=== PATIENT | male | born 1970 | race Hispanic/Latino ===

== ENCOUNTER 2017-11-05 17:11 | Inpatient (IN) | payer MEDICAID, OTHER ==
[~2017-11-05] VITALS: Ht 172.7 cm; Wt 77.1 kg
[~2017-11-05 17:11] MED LIST: INSU100I3 SQ; INSU3INS3 SQ; LACT PO; PANT40TA PO; RIFA550T PO
[2017-11-05 18:14] LABS: BASOPHILS % (AUTO) 0.4 % (0.0-5.0); EOSINOPHILS % (AUTO) 1.7 % (0.0-8.0); HEMATOCRIT 25.3 % (42-54); LYMPHOCYTES % (AUTO) 35.4 % (21.0-51.0); MEAN CORPUSCULAR HGB CONC 36.4 g/dL (32.0-36.0); MEAN CORPUSCULAR VOLUME 87.9 fL (79-99); MONOCYTES % (AUTO) 13.7 % (3.0-13.0); NEUTROPHILS % (AUTO) 48.8 % (40.0-77.0); NUCLEATED RED BLOOD CELLS 0.1 % (0.0-0.19); PLATELET COUNT (AUTO) 42 K/uL (130-400); RED BLOOD CELL COUNT(AUTO) 2.88 MIL/uL (4.50-6.20); RED CELL DISTRIBUTION WIDTH 21.4 % (11.0-15.5)
[2017-11-05 18:16] LABS: CARBON DIOXIDE 23 mmol/L (21-32); CHLORIDE 109 mmol/L (101-111); GLOMERULAR FILTR. RATE CALC 86 mL/min (>60); GLUCOSE,RANDOM 238 mg/dL (70-105); SODIUM SERUM 140 mmol/L (136-145); UREA NITROGEN, BLOOD 8 mg/dL (7-18)
[2017-11-05 18:20] LABS: ALANINE AMINOTRANSFERASE 48 U/L (12-78); ALBUMIN 2.2 g/dL (3.5-5.0); ALCOHOL, BLOOD < 3 mg/dL (0-10); ASPARTATE AMINOTRANSFERASE 62 U/L (10-37); INR 1.35 (0.85-1.15); PARTIAL THROMBOPLASTIN TIME 38.7 SEC (26.3-35.5); PROTHROMBIN TIME 14.1 SEC (9.6-11.6); TOTAL PROTEIN, SERUM 6.1 g/dL (6.0-8.3)
[2017-11-05 18:23] LABS: AMMONIA 80 umol/L (11-32)
[2017-11-05 18:28] LABS: PLATELET MORPHOLOGY COMMENT MARKED DECREASED
[2017-11-05] MEDS ORDERED: LACTULOSE 20 GM/30 ML UDCUP ONE (18:57)
[2017-11-05 19:08] LABS: APPEARANCE,URINE Clear (CLEAR); BILIRUBIN,URINE Negative (NEGATIVE); COLOR,URINE Yellow (YELLOW); GLUCOSE, URINE (UA) TRACE mg/dL (NEGATIVE); KETONES,URINE Negative (NEGATIVE); LEUKOCYTE ESTERASE ,URINE Negative (NEGATIVE); NITRATE,URINE Negative (NEGATIVE); OCCULT BLOOD,URINE Negative (NEGATIVE); PH,URINE 5.5 (5.0-8.0); PROTEIN,URINE Negative (NEGATIVE)
[2017-11-05 19:16] LABS: AMPHET/METH SCREEN,URINE NEGATIVE (NEGATIVE); BARBITURATE SCREEN, URINE NEGATIVE (NEGATIVE); BENZODIAZEPINES SCREEN,URINE NEGATIVE (NEGATIVE); CANNABINOID SCREEN,URINE POSITIVE (NEGATIVE); COCAINE SCREEN,URINE POSITIVE (NEGATIVE); OPIATE SCREEN,URINE NEGATIVE (NEGATIVE); PHENCYCLIDINE SCREEN,URINE NEGATIVE (NEGATIVE)
[2017-11-05] MEDS: LACTULOSE 20 GM/30 ML UDCUP PO SCH (21:00)
[2017-11-05] MEDS ORDERED: POTASSIUM CHLORIDE 10% ELIXIR 20 MEQ/15 ML UDCUP PO PRN (21:00)
[2017-11-05] MEDS ORDERED: POTASSIUM CHLORIDE 20MEQ/100ML 100 ML IV PRN (21:00)
[2017-11-05] MEDS ORDERED: LIDOCAINE HCL-MPF 1% 2ML VIAL IVP PRN (21:00)
[2017-11-05 21:25] VITALS: BP 129/70
[2017-11-05] MEDS ORDERED: OXYCODONE/ACETAMIN 5/325MG TAB PO ONE (22:30)
[2017-11-05] MEDS: FERROUS SULFATE 325 MG TABLET.DR PO SCH (23:03)
[2017-11-05] MEDS: ACYCLOVIR 200 MG CAPSULE PO SCH (23:03)
[2017-11-05 23:07] VITALS: BP 129/68
[2017-11-05] MEDS: INSULIN DETEMIR 10ML 100 UNIT/ML 10ML SQ SCH (23:07)
[2017-11-06 03:35] VITALS: BP 129/58
[2017-11-06] MEDS: LACTULOSE 20 GM/30 ML UDCUP PO SCH ×3 (04:42→20:25)
[2017-11-06] MEDS ORDERED: DEXTROSE 50%-WATER 50 ML DISP.SYRIN IV PRN (05:00)
[2017-11-06] MEDS ORDERED: GLUCAGON 1MG KIT 1 MG ML IM PRN (05:00)
[2017-11-06 06:06] LABS: BASOPHILS % (AUTO) 0.6 % (0.0-5.0); EOSINOPHILS % (AUTO) 2.2 % (0.0-8.0); HEMATOCRIT 23.9 % (42-54); LYMPHOCYTES % (AUTO) 37.2 % (21.0-51.0); MEAN CORPUSCULAR HEMOGLOBIN 31.4 pg (27.0-33.0); MEAN CORPUSCULAR HGB CONC 36.1 g/dL (32.0-36.0); MONOCYTES % (AUTO) 12.8 % (3.0-13.0); NEUTROPHILS % (AUTO) 47.2 % (40.0-77.0); NUCLEATED RED BLOOD CELLS 0.1 % (0.0-0.19); PLATELET COUNT (AUTO) 45 K/uL (130-400); RED BLOOD CELL COUNT(AUTO) 2.74 MIL/uL (4.50-6.20); RED CELL DISTRIBUTION WIDTH 21.5 % (11.0-15.5); WHITE BLOOD COUNT (AUTO) 2.4 K/uL (4.8-10.8)
[2017-11-06 06:20] LABS: CREATININE 0.9 mg/dL (0.5-1.5); POTASSIUM 3.6 mmol/L (3.5-5.1)
[2017-11-06] MEDS: ACYCLOVIR 200 MG CAPSULE PO SCH (06:50)
[2017-11-06] MEDS: INSULIN HUMULIN R 100 UNIT/ML 3ML SQ SCH ×4 (06:52→21:35)
[2017-11-06 07:00] VITALS: BP 95/46
[2017-11-06 08:29] LABS: BAND NEUTROPHILS % (MANUAL) 1 % (0-2); EOSINOPHILS % (MANUAL) 6 % (1-6); LYMPHOCYTES % (MANUAL) 27 % (22-44); MAN.DIFF COMMENT-IMPRESSION MANUAL DIFFERENTIAL; METAMYELOCYTES % 5 % (0-0); MONOCYTES % (MANUAL) 3 % (2-9); PROMYELOCYTES % 2 (0-0); SEGMENTED NEUTROPHILS % 56 % (40-70)
[2017-11-06 08:31] LABS: PLATELET MORPHOLOGY COMMENT MARKED DECREASED
[2017-11-06] MEDS: VALACYCLOVIR HCL 500 MG TABLET PO SCH ×2 (09:45→20:25)
[2017-11-06] MEDS: FERROUS SULFATE 325 MG TABLET.DR PO SCH ×3 (09:45→20:25)
[2017-11-06] MEDS: RIFAXIMIN 550 MG TABLET PO SCH ×2 (09:45→20:25)
[2017-11-06 11:00] VITALS: BP_SYST 105; BP_SYST 157; BP_DIAS 58; BP_DIAS 82
[2017-11-06 16:00] VITALS: BP 126/62
[2017-11-06] MEDS: ALPRAZOLAM 0.5 MG TABLET PO PRN (18:45)
[2017-11-06 19:55] VITALS: BP 150/69
[2017-11-06] MEDS: INSULIN DETEMIR 10ML 100 UNIT/ML 10ML SQ SCH (21:30)
[2017-11-06 23:30] VITALS: BP 108/54
[2017-11-07] MEDS ORDERED: ACETAMINOPHEN 325 MG TAB ONE (00:29)
[2017-11-07] MEDS ORDERED: ACETAMINOPHEN 325 MG TAB PO ONE (00:45)
[2017-11-07] MEDS: ALPRAZOLAM 0.5 MG TABLET PO PRN ×3 (02:03→20:11)
[2017-11-07 04:25] VITALS: BP 112/75
[2017-11-07 04:50] LABS: HEMATOCRIT 26.5 % (42-54); MEAN CORPUSCULAR HEMOGLOBIN 33.5 pg (27.0-33.0); MEAN CORPUSCULAR HGB CONC 37.5 g/dL (32.0-36.0); MEAN CORPUSCULAR VOLUME 89.2 fL (79-99); NUCLEATED RED BLOOD CELLS 0.1 % (0.0-0.19); PLATELET COUNT (AUTO) 48 K/uL (130-400); RED BLOOD CELL COUNT(AUTO) 2.97 MIL/uL (4.50-6.20); RED CELL DISTRIBUTION WIDTH 21.7 % (11.0-15.5); WHITE BLOOD COUNT (AUTO) 2.2 K/uL (4.8-10.8)
[2017-11-07] MEDS: LACTULOSE 20 GM/30 ML UDCUP PO SCH ×3 (04:52→19:21)
[2017-11-07 05:00] LABS: CREATININE 0.9 mg/dL (0.5-1.5); MAGNESIUM 1.5 mg/dL (1.80-2.40); POTASSIUM 4.1 mmol/L (3.5-5.1)
[2017-11-07 05:09] LABS: % IRON SATURATION 33.9 % (30-44)
[2017-11-07] MEDS: INSULIN HUMULIN R 100 UNIT/ML 3ML SQ SCH ×4 (06:42→22:07)
[2017-11-07 08:03] VITALS: BP 118/53
[2017-11-07] MEDS ORDERED: BISACODYL 10 MG SUPP.RECT RC PRN (08:15)
[2017-11-07] MEDS: MAGNESIUM 2GM PREMIX 50ML 50 ML IV SCH (10:01)
[2017-11-07] MEDS: RIFAXIMIN 550 MG TABLET PO SCH ×2 (10:01→20:12)
[2017-11-07] MEDS: FERROUS SULFATE 325 MG TABLET.DR PO SCH ×3 (10:01→20:12)
[2017-11-07 12:00] VITALS: BP 101/49
[2017-11-07 16:00] VITALS: BP 117/67
[2017-11-07 19:05] VITALS: BP 131/69
[2017-11-08 00:25] VITALS: BP 105/58
[2017-11-08] MEDS: LACTULOSE 20 GM/30 ML UDCUP PO SCH ×6 (01:06→19:00)
[2017-11-08 05:43] LABS: HEMATOCRIT 27.8 % (42-54); MEAN CORPUSCULAR HEMOGLOBIN 31.4 pg (27.0-33.0); MEAN CORPUSCULAR HGB CONC 34.9 g/dL (32.0-36.0); MEAN CORPUSCULAR VOLUME 89.9 fL (79-99); NUCLEATED RED BLOOD CELLS 0.1 % (0.0-0.19); PLATELET COUNT (AUTO) 53 K/uL (130-400); RED BLOOD CELL COUNT(AUTO) 3.09 MIL/uL (4.50-6.20); RED CELL DISTRIBUTION WIDTH 23.3 % (11.0-15.5); WHITE BLOOD COUNT (AUTO) 2.9 K/uL (4.8-10.8)
[2017-11-08 05:52] LABS: CREATININE 0.9 mg/dL (0.5-1.5); MAGNESIUM 1.6 mg/dL (1.80-2.40); POTASSIUM 3.8 mmol/L (3.5-5.1)
[2017-11-08 07:29] LABS: BAND NEUTROPHILS % (MANUAL) 4 % (0-2); BASOPHILS % (MANUAL) 4 % (0-2); LYMPHOCYTES % (MANUAL) 40 % (22-44); MONOCYTES % (MANUAL) 8 % (2-9); SEGMENTED NEUTROPHILS % 44 % (40-70)
[2017-11-08 07:31] LABS: PLATELET MORPHOLOGY COMMENT MARKED DECREASED
[2017-11-08 07:32] LABS: MAN.DIFF COMMENT-IMPRESSION MANUAL DIFFERENTIAL
[2017-11-08 08:00] VITALS: BP 121/56
[2017-11-08] MEDS: RIFAXIMIN 550 MG TABLET PO SCH ×2 (09:27→20:13)
[2017-11-08] MEDS: FERROUS SULFATE 325 MG TABLET.DR PO SCH ×3 (09:27→20:13)
[2017-11-08] MEDS: INSULIN HUMULIN R 100 UNIT/ML 3ML SQ SCH ×4 (09:36→21:00)
[2017-11-08] MEDS: ALPRAZOLAM 0.5 MG TABLET PO PRN ×2 (11:58→20:13)
[2017-11-08 12:10] VITALS: BP 108/49
[2017-11-08] MEDS: MORPHINE SULFATE 2 MG/ML 1ML SYG IVP PRN (15:08)
[2017-11-08 16:00] VITALS: BP 127/77
[2017-11-08 20:00] VITALS: BP 106/58
[2017-11-09] VITALS: BP 112/56
[2017-11-09] MEDS: LACTULOSE 20 GM/30 ML UDCUP PO SCH ×4 (01:00→19:00)
[2017-11-09] MEDS: MORPHINE SULFATE 2 MG/ML 1ML SYG IVP PRN ×2 (02:45→14:39)
[2017-11-09 04:00] VITALS: BP 110/45
[2017-11-09 05:31] LABS: HEMATOCRIT 28.1 % (42-54); MEAN CORPUSCULAR HEMOGLOBIN 33.3 pg (27.0-33.0); MEAN CORPUSCULAR HGB CONC 37.3 g/dL (32.0-36.0); MEAN CORPUSCULAR VOLUME 89.1 fL (79-99); PLATELET COUNT (AUTO) 53 K/uL (130-400); RED BLOOD CELL COUNT(AUTO) 3.16 MIL/uL (4.50-6.20); RED CELL DISTRIBUTION WIDTH 23.1 % (11.0-15.5)
[2017-11-09 05:44] LABS: CREATININE 0.9 mg/dL (0.5-1.5); MAGNESIUM 1.7 mg/dL (1.80-2.40); POTASSIUM 3.5 mmol/L (3.5-5.1)
[2017-11-09] MEDS: INSULIN HUMULIN R 100 UNIT/ML 3ML SQ SCH ×4 (06:48→22:11)
[2017-11-09 07:05] VITALS: BP 118/49
[2017-11-09 07:41] LABS: EOSINOPHILS % (MANUAL) 2 % (1-6); LYMPHOCYTES % (MANUAL) 26 % (22-44); MONOCYTES % (MANUAL) 14 % (2-9); SEGMENTED NEUTROPHILS % 58 % (40-70)
[2017-11-09 07:42] LABS: MAN.DIFF COMMENT-IMPRESSION MANUAL DIFFERENTIAL; PLATELET MORPHOLOGY COMMENT DECREASED
[2017-11-09] MEDS: FERROUS SULFATE 325 MG TABLET.DR PO SCH ×3 (09:47→22:06)
[2017-11-09] MEDS: RIFAXIMIN 550 MG TABLET PO SCH ×2 (09:48→22:06)
[2017-11-09 11:00] VITALS: BP 109/53
[2017-11-09] MEDS: POTASSIUM CHLORIDE 20 MEQ ERTAB PO PRN ×2 (12:12→14:39)
[2017-11-09] MEDS: ALPRAZOLAM 0.5 MG TABLET PO PRN ×2 (12:17→22:06)
[2017-11-09 15:30] VITALS: BP 108/53
[2017-11-09] MEDS: MAGNESIUM 2GM PREMIX 50ML 50 ML IV SCH (17:03)
[2017-11-09 20:00] VITALS: BP 134/64
[2017-11-10] VITALS: BP 110/65
[2017-11-10] MEDS: LACTULOSE 20 GM/30 ML UDCUP PO SCH ×3 (01:00→12:50)
[2017-11-10] MEDS ORDERED: MORPHINE SULFATE 4 MG/1ML SYG ONE (01:33)
[2017-11-10 04:00] VITALS: BP 110/64
[2017-11-10] MEDS: INSULIN HUMULIN R 100 UNIT/ML 3ML SQ SCH ×2 (07:33→12:56)
[2017-11-10 07:59] VITALS: BP 107/53
[2017-11-10] MEDS: FERROUS SULFATE 325 MG TABLET.DR PO SCH ×2 (10:25→12:50)
[2017-11-10] MEDS: RIFAXIMIN 550 MG TABLET PO SCH (10:25)
[2017-11-10] MEDS: ALPRAZOLAM 0.5 MG TABLET PO PRN (10:27)
[2017-11-10 12:08] VITALS: BP 112/49
== END 2017-11-10 15:29 | disposition home or self-care (01) | DRG 442 ==
LOC: EDH 17:11 → EDHIP 17:13 → UNDOADMIN 19:50 → EDHIP 19:50 → 4CH 21:24
PROVIDERS: ADMIT Family Medicine; ATTEND Family Medicine
DX: K72.00 Acute and subacute hepatic failure without coma (principal); E44.0 Moderate protein-calorie malnutrition; D61.818 Other pancytopenia; R18.8 Other ascites; E83.42 Hypomagnesemia; B00.2 Herpesviral gingivostomatitis and pharyngotonsillitis; K74.60 Unspecified cirrhosis of liver; B19.20 Unspecified viral hepatitis C without hepatic coma; E03.9 Hypothyroidism, unspecified; E11.9 Type 2 diabetes mellitus without complications; F12.90 Cannabis use, unspecified, uncomplicated; F32.9 Major depressive disorder, single episode, unspecified; F41.1 Generalized anxiety disorder; F43.10 Post-traumatic stress disorder, unspecified; M79.7 Fibromyalgia; R53.82 Chronic fatigue, unspecified; Z60.2 Problems related to living alone; Z68.25 Body mass index [BMI] 25.0-25.9, adult; Z91.81 History of falling; Z88.8 Allergy status to other drugs, medicaments and biological substances
CPT/HCPCS: 36415; 70450; 71045; 71110; 73562; 80048; 80053; 80305; 81003; 82140; 82270; 82948; 83540; 83550; 83735; 85007; 85025; 85027; 85610; 85730; 87252; 87253; G0480; J1815; J2270; J3475

== ENCOUNTER 2017-11-14 16:49 | Inpatient (IN) | payer MEDICAID, OTHER ==
[~2017-11-14] VITALS: Ht 172.7 cm; Wt 77.1 kg
[2017-11-14 17:40] LABS: BASOPHILS % (AUTO) 0.6 % (0.0-5.0); EOSINOPHILS % (AUTO) 2.1 % (0.0-8.0); HEMATOCRIT 27.1 % (42-54); LYMPHOCYTES % (AUTO) 32.7 % (21.0-51.0); MEAN CORPUSCULAR HEMOGLOBIN 32.3 pg (27.0-33.0); MEAN CORPUSCULAR HGB CONC 35.2 g/dL (32.0-36.0); MEAN CORPUSCULAR VOLUME 91.8 fL (79-99); MONOCYTES % (AUTO) 12.7 % (3.0-13.0); NEUTROPHILS % (AUTO) 51.9 % (40.0-77.0); NUCLEATED RED BLOOD CELLS 0.1 % (0.0-0.19); PLATELET COUNT (AUTO) 38 K/uL (130-400); RED BLOOD CELL COUNT(AUTO) 2.95 MIL/uL (4.50-6.20); RED CELL DISTRIBUTION WIDTH 22.9 % (11.0-15.5)
[2017-11-14] MEDS ORDERED: ALBUMIN (HUMAN) 25% 50 ML IV ONE (17:40)
[2017-11-14] MEDS ORDERED: MEROPENEM 1 GM VIAL ONE (17:40)
[2017-11-14 17:55] LABS: INR 1.34 (0.85-1.15)
[2017-11-14 17:59] LABS: B-TYPE NATRIURETIC PEPTIDE 66 pg/mL (0-100)
[2017-11-14 18:31] LABS: ALANINE AMINOTRANSFERASE 46 U/L (12-78); ALBUMIN 2.3 g/dL (3.5-5.0); ASPARTATE AMINOTRANSFERASE 53 U/L (10-37); BILIRUBIN,TOTAL 2.3 mg/dL (0.2-1.0); CARBON DIOXIDE 22 mmol/L (21-32); CHLORIDE 106 mmol/L (101-111); CREATINE KINASE MB < 0.5 ng/mL (0.5-3.6); CREATINE KINASE, TOTAL 50 U/L (21-232); CREATININE 1.1 mg/dL (0.5-1.5); GLOMERULAR FILTR. RATE CALC 77 mL/min (>60); LIPASE 293 U/L (114-286); MYOGLOBIN 16 ng/mL (10-92); POTASSIUM 3.8 mmol/L (3.5-5.1); SODIUM SERUM 137 mmol/L (136-145); TOTAL PROTEIN, SERUM 6.2 g/dL (6.0-8.3); UREA NITROGEN, BLOOD 7 mg/dL (7-18)
[2017-11-14 18:37] LABS: GLUCOSE,RANDOM 568 mg/dL (70-105)
[2017-11-14 18:47] LABS: AMPHET/METH SCREEN,URINE NEGATIVE (NEGATIVE); BARBITURATE SCREEN, URINE NEGATIVE (NEGATIVE); BENZODIAZEPINES SCREEN,URINE NEGATIVE (NEGATIVE); CANNABINOID SCREEN,URINE NEGATIVE (NEGATIVE); COCAINE SCREEN,URINE POSITIVE (NEGATIVE); OPIATE SCREEN,URINE NEGATIVE (NEGATIVE); PHENCYCLIDINE SCREEN,URINE NEGATIVE (NEGATIVE)
[2017-11-14 21:35] VITALS: BP 144/91
[2017-11-14] MEDS ORDERED: FAMOTIDINE 20MG TAB 20 MG TAB ONE (22:12)
[2017-11-14] MEDS ORDERED: INSULIN HUMULIN R 100 UNIT/ML 3ML ONE (22:13)
[2017-11-14] MEDS ORDERED: ALPRAZOLAM 0.5 MG TABLET ONE (22:14)
[2017-11-14] MEDS ORDERED: ACETAMINOPHEN 325 MG TAB ONE (22:14)
[2017-11-14] MEDS ORDERED: LACT10SO9 PO (22:33)
[2017-11-14] MEDS ORDERED: PERCT10 PO (22:33)
[2017-11-14] MEDS ORDERED: ZOLP5TAB2 PO (22:33)
[2017-11-14] MEDS ORDERED: MORPHINE SULFATE 2 MG/ML 1ML SYG IVP PRN (22:45)
[2017-11-14] MEDS ORDERED: PROMETHAZINE HCL 25 MG/ML 1ML AMPULE IM PRN (22:45)
[2017-11-14] MEDS ORDERED: MORPHINE SULFATE 4 MG/1ML SYG ONE (22:55)
[2017-11-14 23:00] VITALS: BP 129/60
[2017-11-14] MEDS ORDERED: DEXTROSE 50%-WATER 50 ML DISP.SYRIN IV PRN (23:15)
[2017-11-14] MEDS: SODIUM CHLORIDE 0.9% 1000ML 1,000 ML IV SCH ×2 (23:15→23:58)
[2017-11-14] MEDS ORDERED: ACETAMINOPHEN 325 MG TAB PO PRN (23:15)
[2017-11-14] MEDS ORDERED: POTASSIUM CHLORIDE 20MEQ/100ML 100 ML IV PRN (23:15)
[2017-11-14] MEDS ORDERED: LIDOCAINE HCL-MPF 1% 2ML VIAL IJ PRN (23:15)
[2017-11-14] MEDS ORDERED: GLUCAGON 1MG KIT 1 MG ML IM PRN (23:15)
[2017-11-14] MEDS ORDERED: POTASSIUM CHLORIDE 20 MEQ ERTAB PO PRN (23:15)
[2017-11-14] MEDS ORDERED: POTASSIUM CHLORIDE 10% ELIXIR 20 MEQ/15 ML UDCUP PO PRN (23:15)
[2017-11-14] MEDS: ZOLPIDEM TARTRATE 5 MG TAB PO PRN (23:58)
[2017-11-15] MEDS: SODIUM CHLORIDE 0.9% 1000ML 1,000 ML IV SCH ×4 (00:04→19:15)
[2017-11-15] MEDS ORDERED: PHARMACY COMMUNICATION MISC SCH (01:30)
[2017-11-15] MEDS: MEROPENEM 1 GM VIAL IVP SCH ×3 (02:10→17:04)
[2017-11-15] MEDS ORDERED: MORPHINE SULFATE 4 MG/1ML SYG ONE (02:54)
[2017-11-15 03:00] VITALS: BP 131/63
[2017-11-15 04:56] LABS: HEMATOCRIT 22.3 % (42-54); MEAN CORPUSCULAR HEMOGLOBIN 33.3 pg (27.0-33.0); MEAN CORPUSCULAR HGB CONC 37.1 g/dL (32.0-36.0); MEAN CORPUSCULAR VOLUME 89.7 fL (79-99); PLATELET COUNT (AUTO) 29 K/uL (130-400); RED BLOOD CELL COUNT(AUTO) 2.49 MIL/uL (4.50-6.20); RED CELL DISTRIBUTION WIDTH 23.2 % (11.0-15.5); WHITE BLOOD COUNT (AUTO) 1.4 K/uL (4.8-10.8)
[2017-11-15 05:10] LABS: CREATININE 0.9 mg/dL (0.5-1.5); POTASSIUM 3.5 mmol/L (3.5-5.1)
[2017-11-15 05:28] LABS: EOSINOPHILS % (MANUAL) 4 % (1-6); LYMPHOCYTES % (MANUAL) 48 % (22-44); MAN.DIFF COMMENT-IMPRESSION MANUAL DIFFERENTIAL; MONOCYTES % (MANUAL) 8 % (2-9); SEGMENTED NEUTROPHILS % 40 % (40-70)
[2017-11-15 05:29] LABS: PLATELET MORPHOLOGY COMMENT MARKED DEC
[2017-11-15] MEDS: INSULIN R PO SS1 SQ SCH ×4 (06:23→20:57)
[2017-11-15 07:40] VITALS: BP 120/64
[2017-11-15] MEDS: MORPHINE SULFATE 4 MG/1ML SYG IVP PRN ×4 (08:56→21:54)
[2017-11-15] MEDS ORDERED: LACTULOSE 20 GM/30 ML UDCUP PO SCH ×2 (09:00→22:00)
[2017-11-15] MEDS ORDERED: FAMOTIDINE 20MG TAB 20 MG TAB PO SCH (09:00)
[2017-11-15 11:38] VITALS: BP 127/64
[2017-11-15] MEDS: ALPRAZOLAM 0.5 MG TABLET PO PRN (15:20)
[2017-11-15 16:23] VITALS: BP 128/64
[2017-11-15 20:00] VITALS: BP 129/70
[2017-11-15] MEDS: RIFAXIMIN 550 MG TABLET PO SCH (20:13)
[2017-11-15] MEDS: ZOLPIDEM TARTRATE 5 MG TAB PO PRN (20:13)
[2017-11-16] VITALS: BP 142/83
[2017-11-16] MEDS: MEROPENEM 1 GM VIAL IVP SCH ×3 (01:48→17:59)
[2017-11-16 03:50] LABS: CREATININE 0.8 mg/dL (0.5-1.5); MAGNESIUM 1.4 mg/dL (1.80-2.40); POTASSIUM 3.9 mmol/L (3.5-5.1)
[2017-11-16 04:00] VITALS: BP 135/79
[2017-11-16] MEDS: SODIUM CHLORIDE 0.9% 1000ML 1,000 ML IV SCH ×2 (04:39→15:15)
[2017-11-16] MEDS: MORPHINE SULFATE 4 MG/1ML SYG IVP PRN ×3 (05:08→22:01)
[2017-11-16] MEDS: INSULIN R PO SS1 SQ SCH ×4 (06:17→21:32)
[2017-11-16 08:00] VITALS: BP 130/60
[2017-11-16] MEDS ORDERED: BISACODYL 10 MG SUPP.RECT RC PRN (09:45)
[2017-11-16] MEDS ORDERED: PHARMACY COMMUNICATION MISC SCH (09:45)
[2017-11-16] MEDS: RIFAXIMIN 550 MG TABLET PO SCH ×2 (10:29→21:27)
[2017-11-16] MEDS: LACTULOSE 20 GM/30 ML UDCUP PO SCH ×2 (10:48→18:00)
[2017-11-16 11:45] VITALS: BP 126/63
[2017-11-16] MEDS: MAGNESIUM 2GM PREMIX 50ML 50 ML IV SCH (12:28)
[2017-11-16 16:00] VITALS: BP 138/85
[2017-11-16] MEDS: ALPRAZOLAM 0.5 MG TABLET PO PRN (16:14)
[2017-11-16 19:00] VITALS: BP 133/76
[2017-11-16] MEDS: ZOLPIDEM TARTRATE 5 MG TAB PO PRN (21:27)
[2017-11-16] MEDS: INSULIN GLARGINE 100 UNITS/ML 10 ML VIAL SQ SCH (21:31)
[2017-11-17] VITALS: BP 114/51
[2017-11-17] MEDS: LACTULOSE 20 GM/30 ML UDCUP PO SCH ×2 (00:50→09:07)
[2017-11-17] MEDS: SODIUM CHLORIDE 0.9% 1000ML 1,000 ML IV SCH ×2 (00:51→20:14)
[2017-11-17] MEDS: MORPHINE SULFATE 4 MG/1ML SYG IVP PRN ×5 (02:05→20:03)
[2017-11-17 03:52] VITALS: BP 122/69
[2017-11-17 04:51] LABS: HEMATOCRIT 28.6 % (42-54); MEAN CORPUSCULAR HEMOGLOBIN 33.6 pg (27.0-33.0); MEAN CORPUSCULAR HGB CONC 36.8 g/dL (32.0-36.0); MEAN CORPUSCULAR VOLUME 91.3 fL (79-99); PLATELET COUNT (AUTO) 49 K/uL (130-400); RED BLOOD CELL COUNT(AUTO) 3.13 MIL/uL (4.50-6.20)
[2017-11-17 04:56] LABS: CREATININE 0.8 mg/dL (0.5-1.5); MAGNESIUM 1.7 mg/dL (1.80-2.40); POTASSIUM 4.4 mmol/L (3.5-5.1)
[2017-11-17 05:12] LABS: BASOPHILS % (MANUAL) 4 % (0-2); EOSINOPHILS % (MANUAL) 4 % (1-6); LYMPHOCYTES % (MANUAL) 16 % (22-44); MONOCYTES % (MANUAL) 4 % (2-9); SEGMENTED NEUTROPHILS % 72 % (40-70)
[2017-11-17 05:13] LABS: MAN.DIFF COMMENT-IMPRESSION MANUAL DIFFERENTIAL; PLATELET MORPHOLOGY COMMENT MARKED DECREASED
[2017-11-17] MEDS: INSULIN R PO SS1 SQ SCH ×4 (05:40→20:13)
[2017-11-17 08:00] VITALS: BP 120/66
[2017-11-17] MEDS: RIFAXIMIN 550 MG TABLET PO SCH ×2 (09:03→20:03)
[2017-11-17 11:37] VITALS: BP 118/62
[2017-11-17] MEDS: MAGNESIUM 2GM PREMIX 50ML 50 ML IV SCH (12:16)
[2017-11-17 16:00] VITALS: BP 122/56
[2017-11-17] MEDS: LACTULOSE 20 GM/30 ML UDCUP PR SCH (19:00)
[2017-11-17] MEDS ORDERED: MAGNESIUM 2GM PREMIX 50ML 50 ML IV SCH (19:30)
[2017-11-17 20:00] VITALS: BP 143/83
[2017-11-17] MEDS: ZOLPIDEM TARTRATE 5 MG TAB PO PRN (20:03)
[2017-11-17] MEDS: INSULIN GLARGINE 100 UNITS/ML 10 ML VIAL SQ SCH (20:14)
[2017-11-18] VITALS (7 sets, daily range): BP systolic 113–136; BP diastolic 53–81
[2017-11-18] MEDS: MORPHINE SULFATE 4 MG/1ML SYG IVP PRN ×6 (00:09→21:07)
[2017-11-18] MEDS: LACTULOSE 20 GM/30 ML UDCUP PR SCH ×4 (02:00→23:00)
[2017-11-18 05:34] LABS: CREATININE 0.7 mg/dL (0.5-1.5); MAGNESIUM 1.4 mg/dL (1.80-2.40); POTASSIUM 3.8 mmol/L (3.5-5.1)
[2017-11-18] MEDS: SODIUM CHLORIDE 0.9% 1000ML 1,000 ML IV SCH ×2 (05:36→17:15)
[2017-11-18] MEDS: ALPRAZOLAM 0.5 MG TABLET PO PRN ×2 (06:09→19:08)
[2017-11-18] MEDS: INSULIN R PO SS1 SQ SCH ×4 (06:13→21:04)
[2017-11-18] MEDS: RIFAXIMIN 550 MG TABLET PO SCH ×2 (12:03→20:34)
[2017-11-18] MEDS: MAGNESIUM 2GM PREMIX 50ML 50 ML IV SCH (16:59)
[2017-11-18] MEDS: INSULIN GLARGINE 100 UNITS/ML 10 ML VIAL SQ SCH (20:38)
[2017-11-18] MEDS: ZOLPIDEM TARTRATE 5 MG TAB PO PRN (23:44)
[2017-11-19] MEDS: MORPHINE SULFATE 4 MG/1ML SYG IVP PRN ×5 (01:03→20:31)
[2017-11-19] MEDS: SODIUM CHLORIDE 0.9% 1000ML 1,000 ML IV SCH ×2 (03:15→13:15)
[2017-11-19 03:53] VITALS: BP 112/81
[2017-11-19 04:53] LABS: HEMATOCRIT 25.3 % (42-54); MEAN CORPUSCULAR HEMOGLOBIN 33.4 pg (27.0-33.0); MEAN CORPUSCULAR HGB CONC 36.8 g/dL (32.0-36.0); MEAN CORPUSCULAR VOLUME 90.7 fL (79-99); PLATELET COUNT (AUTO) 34 K/uL (130-400); RED BLOOD CELL COUNT(AUTO) 2.79 MIL/uL (4.50-6.20); RED CELL DISTRIBUTION WIDTH 22.3 % (11.0-15.5); WHITE BLOOD COUNT (AUTO) 2.3 K/uL (4.8-10.8)
[2017-11-19] MEDS: LACTULOSE 20 GM/30 ML UDCUP PR SCH ×2 (04:57→08:25)
[2017-11-19 05:01] LABS: CREATININE 0.7 mg/dL (0.5-1.5); MAGNESIUM 1.6 mg/dL (1.80-2.40); POTASSIUM 3.8 mmol/L (3.5-5.1)
[2017-11-19] MEDS: MAGNESIUM 2GM PREMIX 50ML 50 ML IV SCH (05:25)
[2017-11-19] MEDS: INSULIN R PO SS1 SQ SCH ×4 (06:13→21:43)
[2017-11-19 08:00] VITALS: BP 102/54
[2017-11-19] MEDS: INSULIN GLARGINE 100 UNITS/ML 10 ML VIAL SQ SCH ×2 (08:23→20:11)
[2017-11-19] MEDS: ALPRAZOLAM 0.5 MG TABLET PO PRN ×2 (08:25→21:40)
[2017-11-19 12:00] VITALS: BP 111/56
[2017-11-19] MEDS: RIFAXIMIN 550 MG TABLET PO SCH ×2 (12:26→20:09)
[2017-11-19] MEDS ORDERED: LIDOCAINE HCL 2% VISCOUS 15 ML UDCUP PO PRN (14:15)
[2017-11-19 15:54] VITALS: BP 110/61
[2017-11-19] MEDS: LACTULOSE 20 GM/30 ML UDCUP PO SCH ×2 (16:36→20:09)
[2017-11-19 19:22] VITALS: BP 114/62
[2017-11-19 23:22] VITALS: BP 131/76
[2017-11-20] MEDS: MORPHINE SULFATE 4 MG/1ML SYG IVP PRN ×5 (00:34→21:09)
[2017-11-20] MEDS: LACTULOSE 20 GM/30 ML UDCUP PO SCH ×4 (02:04→20:36)
[2017-11-20 03:39] VITALS: BP 116/70
[2017-11-20 07:00] LABS: CREATININE 0.8 mg/dL (0.5-1.5); MAGNESIUM 1.6 mg/dL (1.80-2.40); POTASSIUM 4.1 mmol/L (3.5-5.1)
[2017-11-20] MEDS: INSULIN R PO SS1 SQ SCH ×4 (07:30→20:36)
[2017-11-20 08:00] VITALS: BP 116/58
[2017-11-20] MEDS: INSULIN GLARGINE 100 UNITS/ML 10 ML VIAL SQ SCH ×2 (08:08→20:35)
[2017-11-20] MEDS: ALPRAZOLAM 0.5 MG TABLET PO PRN (08:18)
[2017-11-20 12:00] VITALS: BP 98/44
[2017-11-20] MEDS: RIFAXIMIN 550 MG TABLET PO SCH ×2 (12:20→20:36)
[2017-11-20 16:00] VITALS: BP 102/52
[2017-11-20 19:34] VITALS: BP 115/64
[2017-11-20 23:22] VITALS: BP 126/71
[2017-11-20] MEDS: ZOLPIDEM TARTRATE 5 MG TAB PO PRN (23:38)
[2017-11-21] MEDS: MORPHINE SULFATE 4 MG/1ML SYG IVP PRN ×3 (01:02→10:12)
[2017-11-21 03:19] VITALS: BP 114/63
[2017-11-21] MEDS: LACTULOSE 20 GM/30 ML UDCUP PO SCH ×4 (03:33→20:39)
[2017-11-21 06:15] LABS: HEMATOCRIT 26.7 % (42-54); MEAN CORPUSCULAR HEMOGLOBIN 33.6 pg (27.0-33.0); MEAN CORPUSCULAR HGB CONC 37.2 g/dL (32.0-36.0); MEAN CORPUSCULAR VOLUME 90.3 fL (79-99); NUCLEATED RED BLOOD CELLS 0.2 % (0.0-0.19); PLATELET COUNT (AUTO) 40 K/uL (130-400); RED BLOOD CELL COUNT(AUTO) 2.96 MIL/uL (4.50-6.20); WHITE BLOOD COUNT (AUTO) 2.5 K/uL (4.8-10.8)
[2017-11-21] MEDS: INSULIN R PO SS1 SQ SCH ×4 (06:16→20:57)
[2017-11-21 06:21] LABS: CREATININE 0.8 mg/dL (0.5-1.5); MAGNESIUM 1.5 mg/dL (1.80-2.40); POTASSIUM 3.9 mmol/L (3.5-5.1)
[2017-11-21] MEDS: MAGNESIUM 2GM PREMIX 50ML 50 ML IV SCH (06:33)
[2017-11-21 07:57] VITALS: BP 113/63
[2017-11-21 08:11] LABS: BAND NEUTROPHILS % (MANUAL) 3 % (0-2); BASOPHILS % (MANUAL) 2 % (0-2); EOSINOPHILS % (MANUAL) 1 % (1-6); LYMPHOCYTES % (MANUAL) 23 % (22-44); MAN.DIFF COMMENT-IMPRESSION MANUAL DIFFERENTIAL; MONOCYTES % (MANUAL) 11 % (2-9); PLATELET MORPHOLOGY COMMENT MARKED DECREASED; REACTIVE LYMPHOCYTES 1 % (0-0); SEGMENTED NEUTROPHILS % 59 % (40-70)
[2017-11-21] MEDS: RIFAXIMIN 550 MG TABLET PO SCH ×2 (09:56→20:39)
[2017-11-21] MEDS: INSULIN GLARGINE 100 UNITS/ML 10 ML VIAL SQ SCH ×2 (10:16→20:58)
[2017-11-21 12:00] VITALS: BP 149/72
[2017-11-21] MEDS ORDERED: MORPHINE SULFATE 4 MG/1ML SYG IVP PRN (12:00)
[2017-11-21] MEDS ORDERED: GABAPENTIN 100 MG CAPSULE PO SCH (14:00)
[2017-11-21] MEDS: ALPRAZOLAM 0.5 MG TABLET PO PRN (14:40)
[2017-11-21] MEDS: LACTULOSE 20 GM/30 ML UDCUP PR SCH ×2 (15:11→16:19)
[2017-11-21 16:00] VITALS: BP 116/57
[2017-11-21 19:00] VITALS: BP 124/70
[2017-11-21 23:55] VITALS: BP 104/57
[2017-11-22] MEDS: ALPRAZOLAM 0.5 MG TABLET PO PRN ×2 (01:05→13:15)
[2017-11-22] MEDS ORDERED: MORPHINE SULFATE 4 MG/1ML SYG ONE ×2 (01:33→20:12)
[2017-11-22 04:00] VITALS: BP 109/58
[2017-11-22] MEDS: LACTULOSE 20 GM/30 ML UDCUP PO SCH ×3 (04:20→23:18)
[2017-11-22] MEDS: LACTULOSE 20 GM/30 ML UDCUP PR SCH ×4 (06:00→23:21)
[2017-11-22] MEDS: INSULIN R PO SS1 SQ SCH ×4 (06:08→20:31)
[2017-11-22 06:44] LABS: CREATININE 0.7 mg/dL (0.5-1.5); MAGNESIUM 1.6 mg/dL (1.80-2.40); POTASSIUM 3.9 mmol/L (3.5-5.1)
[2017-11-22 08:00] VITALS: BP 98/64
[2017-11-22] MEDS ORDERED: MORPHINE SULFATE 4 MG/1ML SYG IVP PRN (10:45)
[2017-11-22] MEDS: RIFAXIMIN 550 MG TABLET PO SCH ×2 (11:22→20:16)
[2017-11-22] MEDS: MAGNESIUM 2GM PREMIX 50ML 50 ML IV SCH (11:22)
[2017-11-22 11:43] VITALS: BP 113/63
[2017-11-22] MEDS ORDERED: TRAMADOL HCL 50 MG TABLET PO PRN (12:00)
[2017-11-22] MEDS ORDERED: PHARMACY COMMUNICATION MISC SCH ×2 (12:45→20:00)
[2017-11-22] MEDS: INSULIN GLARGINE 100 UNITS/ML 10 ML VIAL SQ SCH ×2 (14:30→20:30)
[2017-11-22 16:00] VITALS: BP 119/66
[2017-11-22] MEDS ORDERED: LACTULOSE 20 GM/30 ML UDCUP PO SCH (18:00)
[2017-11-22] MEDS ORDERED: MORPHINE SULFATE 2 MG/ML 1ML SYG IVP PRN (18:15)
[2017-11-22 19:00] VITALS: BP 128/69
[2017-11-22] MEDS ORDERED: LACTULOSE 20 GM/30 ML UDCUP PR SCH (20:13)
[2017-11-22] MEDS: ZOLPIDEM TARTRATE 5 MG TAB PO PRN (20:16)
[2017-11-23] VITALS: BP 130/68
[2017-11-23] MEDS: ALPRAZOLAM 0.5 MG TABLET PO PRN ×2 (00:55→12:15)
[2017-11-23] MEDS ORDERED: MORPHINE SULFATE 4 MG/1ML SYG ONE (02:55)
[2017-11-23 04:00] VITALS: BP 104/53
[2017-11-23 05:06] LABS: CREATININE 0.8 mg/dL (0.5-1.5); POTASSIUM 3.6 mmol/L (3.5-5.1)
[2017-11-23] MEDS: LACTULOSE 20 GM/30 ML UDCUP PO SCH ×2 (06:00→12:18)
[2017-11-23] MEDS: LACTULOSE 20 GM/30 ML UDCUP PR SCH ×2 (06:00→12:00)
[2017-11-23] MEDS: INSULIN R PO SS1 SQ SCH ×2 (07:30→11:30)
[2017-11-23] MEDS: MORPHINE SULFATE 4 MG/1ML SYG ONE ×2 (07:39→08:05)
[2017-11-23] MEDS: INSULIN GLARGINE 100 UNITS/ML 10 ML VIAL SQ SCH (07:54)
[2017-11-23 08:00] VITALS: BP 103/55
[2017-11-23] MEDS ORDERED: LACT PO (10:53)
[2017-11-23] MEDS ORDERED: INSLAN SQ (10:53)
[2017-11-23] MEDS ORDERED: ALPR0.5T8 PO (10:53)
[2017-11-23] MEDS ORDERED: SLOMG PO (10:53)
[2017-11-23 11:48] VITALS: BP 111/61
[2017-11-23] MEDS: RIFAXIMIN 550 MG TABLET PO SCH (12:16)
== END 2017-11-23 14:05 | disposition home or self-care (01) | DRG 871 ==
LOC: EDH 16:49 → EDHIP 16:50 → OBSVTOIN 16:50 → 3DH 21:17
PROVIDERS: ADMIT Internal Medicine Nephrology; ATTEND Internal Medicine Nephrology
DX: A41.9 Sepsis, unspecified organism (principal); K72.00 Acute and subacute hepatic failure without coma; E87.2 Acidosis; D61.818 Other pancytopenia; B02.29 Other postherpetic nervous system involvement; K72.90 Hepatic failure, unspecified without coma; E11.65 Type 2 diabetes mellitus with hyperglycemia; B19.20 Unspecified viral hepatitis C without hepatic coma; F41.9 Anxiety disorder, unspecified; K74.60 Unspecified cirrhosis of liver; M79.7 Fibromyalgia; F14.10 Cocaine abuse, uncomplicated; F41.1 Generalized anxiety disorder; Z88.8 Allergy status to other drugs, medicaments and biological substances; Z82.49 Family history of ischemic heart disease and other diseases of the circulatory system
CPT/HCPCS: 36415; 71045; 71250; 74018; 80048; 80053; 80305; 82140; 82550; 82553; 82948; 83605; 83690; 83735; 83874; 83880; 84484; 85007; 85025; 85027; 85060; 85610; 85730; 87040; 88313; 93005; A4218; J1815; J2185; J2270; J3475; J7030; P9047

== ENCOUNTER 2017-12-04 18:16 | Inpatient (IN) | payer MEDICAID, OTHER ==
[~2017-12-04] VITALS: Ht 172.7 cm; Wt 85.9 kg
[~2017-12-04 18:16] MED LIST changes: +ALPR0.5T8 PO; +INSLAN SQ; +PERCT10 PO; +SLOMG PO; +ZOLP5TAB2 PO
[2017-12-04 18:35] LABS: APPEARANCE,URINE Turbid (CLEAR); BILIRUBIN,URINE Negative (NEGATIVE); COLOR,URINE Yellow (YELLOW); GLUCOSE, URINE (UA) Negative (NEGATIVE); KETONES,URINE Negative (NEGATIVE); LEUKOCYTE ESTERASE ,URINE Negative (NEGATIVE); NITRATE,URINE Negative (NEGATIVE); OCCULT BLOOD,URINE Negative (NEGATIVE); PROTEIN,URINE Negative (NEGATIVE); UROBILINOGEN,URINE 0.2 mg/dL (0.2-1.0)
[2017-12-04] MEDS ORDERED: MEROPENEM 1 GM VIAL ONE (18:41)
[2017-12-04] MEDS ORDERED: SODIUM CHLORIDE 0.9% 1000ML 1,000 ML IV ONE (18:42)
[2017-12-04 18:43] LABS: BASOPHILS % (AUTO) 0.9 % (0.0-5.0); EOSINOPHILS % (AUTO) 1.7 % (0.0-8.0); HEMATOCRIT 25.1 % (42-54); LYMPHOCYTES % (AUTO) 19.2 % (21.0-51.0); MEAN CORPUSCULAR HEMOGLOBIN 31.9 pg (27.0-33.0); MEAN CORPUSCULAR HGB CONC 34.8 g/dL (32.0-36.0); MEAN CORPUSCULAR VOLUME 91.7 fL (79-99); MONOCYTES % (AUTO) 17.5 % (3.0-13.0); NEUTROPHILS % (AUTO) 60.7 % (40.0-77.0); NUCLEATED RED BLOOD CELLS 0.1 % (0.0-0.19); PLATELET COUNT (AUTO) 31 K/uL (130-400); RED BLOOD CELL COUNT(AUTO) 2.74 MIL/uL (4.50-6.20); RED CELL DISTRIBUTION WIDTH 18.2 % (11.0-15.5); WHITE BLOOD COUNT (AUTO) 1.2 K/uL (4.8-10.8)
[2017-12-04 18:48] LABS: BACTERIA,URINE Moderate /HPF (None Seen); RBC,URINE None Seen /HPF (0-1); SQUAMOUS EPITHELIAL CELL,UR None Seen /HPF (0-2); WBC,URINE None Seen /HPF (0-1); YEAST,URINE BUDDING Moderate /HPF (None Seen)
[2017-12-04 18:55] LABS: INR 1.34 (0.85-1.15); PARTIAL THROMBOPLASTIN TIME 41.6 SEC (26.3-35.5); PLATELET MORPHOLOGY COMMENT MARKED DECREASED
[2017-12-04 19:00] LABS: ALBUMIN 2.2 g/dL (3.5-5.0); BILIRUBIN,TOTAL 2.2 mg/dL (0.2-1.0); CREATININE 1.1 mg/dL (0.5-1.5); POTASSIUM 4.1 mmol/L (3.5-5.1); TOTAL PROTEIN, SERUM 5.7 g/dL (6.0-8.3)
[2017-12-04] MEDS ORDERED: ACETAMINOPHEN-CODEINE ELIXIR 5 ML UDCUP ONE (19:21)
[2017-12-04] MEDS ORDERED: INSULIN HUMULIN R 100 UNIT/ML 3ML ONE (19:22)
[2017-12-04] MEDS ORDERED: HYDROXYZINE HCL 25 MG TABLET ONE (20:04)
[2017-12-04] MEDS ORDERED: MORPHINE SULFATE 2 MG/ML 1ML SYG IM PRN (23:00)
[2017-12-04] MEDS ORDERED: FAMOTIDINE 20MG TAB 20 MG TAB PO SCH (23:00)
[2017-12-04] MEDS: LACTULOSE 20 GM/30 ML UDCUP PO SCH (23:00)
[2017-12-04] MEDS ORDERED: GLUCAGON 1MG KIT 1 MG ML IM PRN (23:00)
[2017-12-04] MEDS ORDERED: DEXTROSE 50%-WATER 50 ML DISP.SYRIN IV PRN (23:00)
[2017-12-04] MEDS ORDERED: LORAZEPAM 1 MG TABLET PO PRN (23:00)
[2017-12-04] MEDS ORDERED: LACTULOSE 20 GM/30 ML UDCUP ONE (23:53)
[2017-12-04] MEDS ORDERED: ACETAMINOPHEN 325 MG TAB ONE (23:53)
[2017-12-04] MEDS ORDERED: FAMOTIDINE 20MG TAB 20 MG TAB ONE (23:53)
[2017-12-04] MEDS ORDERED: MORPHINE SULFATE 4 MG/1ML SYG ONE (23:54)
[2017-12-05] MEDS ORDERED: ZOLPIDEM TARTRATE 5 MG TAB ONE (01:08)
[2017-12-05] MEDS ORDERED: LORAZEPAM 1 MG TABLET ONE (01:09)
[2017-12-05] MEDS ORDERED: INSULIN HUMULIN R 100 UNIT/ML 3ML ONE (01:21)
[2017-12-05 02:00] VITALS: BP 115/65
[2017-12-05 04:00] VITALS: BP 95/57
[2017-12-05] MEDS ORDERED: MORPHINE SULFATE 4 MG/1ML SYG ONE (05:47)
[2017-12-05] MEDS: LACTULOSE 20 GM/30 ML UDCUP PO SCH ×3 (05:53→18:43)
[2017-12-05 06:14] LABS: MEAN CORPUSCULAR HEMOGLOBIN 32.7 pg (27.0-33.0); MEAN CORPUSCULAR HGB CONC 36.2 g/dL (32.0-36.0); MEAN CORPUSCULAR VOLUME 90.3 fL (79-99); NUCLEATED RED BLOOD CELLS 0.1 % (0.0-0.19); PLATELET COUNT (AUTO) 25 K/uL (130-400); RED BLOOD CELL COUNT(AUTO) 2.44 MIL/uL (4.50-6.20); RED CELL DISTRIBUTION WIDTH 18.5 % (11.0-15.5)
[2017-12-05 06:41] LABS: ALBUMIN 1.7 g/dL (3.5-5.0); BILIRUBIN,TOTAL 1.6 mg/dL (0.2-1.0); CREATININE 0.8 mg/dL (0.5-1.5); POTASSIUM 3.6 mmol/L (3.5-5.1); TOTAL PROTEIN, SERUM 4.8 g/dL (6.0-8.3)
[2017-12-05 07:29] LABS: WHITE BLOOD COUNT (AUTO) 0.8 K/uL (4.8-10.8)
[2017-12-05] MEDS ORDERED: INSULIN DETEMIR 10ML 100 UNIT/ML 10ML SQ SCH (07:30)
[2017-12-05] MEDS ORDERED: INSULIN HUMULIN R 100 UNIT/ML 3ML SQ SCH (07:30)
[2017-12-05 08:12] VITALS: BP 115/65
[2017-12-05] MEDS: INSULIN LISPRO 100 UNIT/ML 3ML SQ SCH ×3 (08:26→18:33)
[2017-12-05] MEDS ORDERED: INSULIN GLARGINE 100 UNITS/ML 10 ML VIAL SQ SCH (08:29)
[2017-12-05] MEDS: RIFAXIMIN 550 MG TABLET PO SCH ×2 (08:30→20:43)
[2017-12-05] MEDS ORDERED: ALPRAZOLAM 1 MG TAB PO SCH (09:00)
[2017-12-05] MEDS ORDERED: MEROPENEM 1GM IVPB PREMIXED 1 GM IV SCH (09:00)
[2017-12-05] MEDS ORDERED: ENOXAPARIN SODIUM 40 MG/0.4 ML SYRINGE SQ SCH (09:00)
[2017-12-05] MEDS ORDERED: POTASSIUM CHLORIDE 20MEQ/100ML 100 ML IV PRN ×2 (10:30)
[2017-12-05] MEDS ORDERED: POTASSIUM CHLORIDE 10% ELIXIR 20 MEQ/15 ML UDCUP PO PRN ×2 (10:30)
[2017-12-05] MEDS ORDERED: PHARMACY COMMUNICATION MISC SCH (10:30)
[2017-12-05] MEDS ORDERED: POTASSIUM CHLORIDE 20 MEQ ERTAB PO PRN ×2 (10:30)
[2017-12-05] MEDS ORDERED: LIDOCAINE HCL-MPF 1% 2ML VIAL IVP PRN ×2 (10:30)
[2017-12-05] MEDS: INSULIN GLARGINE 100 UNITS/ML 10 ML VIAL SQ SCH ×2 (10:38→20:41)
[2017-12-05 10:55] LABS: MAGNESIUM 1.5 mg/dL (1.80-2.40)
[2017-12-05 12:00] VITALS: BP 90/50
[2017-12-05] MEDS: MEROPENEM 1 GM VIAL IVP SCH ×2 (12:25→18:35)
[2017-12-05] MEDS: MORPHINE SULFATE 4 MG/1ML SYG IM PRN ×2 (12:25→18:44)
[2017-12-05 16:00] VITALS: BP 104/57
[2017-12-05] MEDS ORDERED: TBO-FILGRASTIM 480 MCG/0.8 ML ML SQ SCH (17:00)
[2017-12-05] MEDS ORDERED: ALPRAZOLAM 1 MG TAB PO PRN (21:00)
[2017-12-05] MEDS ORDERED: ZOLPIDEM TARTRATE 5 MG TAB PO SCH (21:00)
[2017-12-05 21:34] VITALS: BP 114/63
[2017-12-06 00:43] VITALS: BP 110/62
[2017-12-06] MEDS: LACTULOSE 20 GM/30 ML UDCUP PO SCH ×3 (01:09→15:54)
[2017-12-06] MEDS: MORPHINE SULFATE 4 MG/1ML SYG IM PRN ×3 (01:10→16:17)
[2017-12-06] MEDS: MEROPENEM 1 GM VIAL IVP SCH ×2 (03:35→11:09)
[2017-12-06 04:35] VITALS: BP 106/59
[2017-12-06 05:33] LABS: HEMATOCRIT 27.8 % (42-54); MEAN CORPUSCULAR HEMOGLOBIN 32.1 pg (27.0-33.0); MEAN CORPUSCULAR HGB CONC 35.7 g/dL (32.0-36.0); MEAN CORPUSCULAR VOLUME 90.1 fL (79-99); PLATELET COUNT (AUTO) 39 K/uL (130-400); RED BLOOD CELL COUNT(AUTO) 3.08 MIL/uL (4.50-6.20); RED CELL DISTRIBUTION WIDTH 18.5 % (11.0-15.5); WHITE BLOOD COUNT (AUTO) 5.6 K/uL (4.8-10.8)
[2017-12-06 05:43] LABS: CREATININE 0.9 mg/dL (0.5-1.5); MAGNESIUM 1.4 mg/dL (1.80-2.40); POTASSIUM 4.1 mmol/L (3.5-5.1)
[2017-12-06 08:00] VITALS: BP 112/68
[2017-12-06] MEDS ORDERED: FOLIC ACID/VITAMIN B COMP W-C 1 MG CAPSULE PO SCH (09:00)
[2017-12-06] MEDS: RIFAXIMIN 550 MG TABLET PO SCH (09:41)
[2017-12-06] MEDS: INSULIN GLARGINE 100 UNITS/ML 10 ML VIAL SQ SCH (09:42)
[2017-12-06] MEDS: INSULIN LISPRO 100 UNIT/ML 3ML SQ SCH ×3 (09:42→16:17)
[2017-12-06 12:00] VITALS: BP 112/64
== END 2017-12-06 18:15 | disposition home or self-care (01) | DRG 420 ==
LOC: EDH 18:16 → EDHIP 21:09 → 4AH 12-05 01:38 → 4BH 12-05 01:44
PROVIDERS: ADMIT Family Medicine; ATTEND Family Medicine
DX: E11.65 Type 2 diabetes mellitus with hyperglycemia (principal); K72.00 Acute and subacute hepatic failure without coma; D61.818 Other pancytopenia; E44.0 Moderate protein-calorie malnutrition; E87.2 Acidosis; B02.29 Other postherpetic nervous system involvement; E87.1 Hypo-osmolality and hyponatremia; K74.60 Unspecified cirrhosis of liver; E86.0 Dehydration; D63.8 Anemia in other chronic diseases classified elsewhere; F12.90 Cannabis use, unspecified, uncomplicated; Z59.0 Homelessness; B19.20 Unspecified viral hepatitis C without hepatic coma; F14.10 Cocaine abuse, uncomplicated; F41.1 Generalized anxiety disorder; M79.7 Fibromyalgia; Z91.14 Patient's other noncompliance with medication regimen; Z68.28 Body mass index [BMI] 28.0-28.9, adult; Z88.8 Allergy status to other drugs, medicaments and biological substances
CPT/HCPCS: 36415; 71045; 80048; 80053; 80076; 81001; 82140; 82948; 83605; 83735; 85025; 85027; 85610; 85730; 87040; 87088; A4218; J1650; J1815; J2185; J2270; J7030

== ENCOUNTER 2018-01-06 15:59 | Inpatient (IN) | payer MEDICAID ==
[~2018-01-06] VITALS: Ht 175.3 cm; Wt 75.3 kg
[~2018-01-06 15:59] MED LIST changes: -INSU3INS3 SQ; -PERCT10 PO
[2018-01-06 16:36] LABS: BILIRUBIN,URINE Negative (NEGATIVE); COLOR,URINE Yellow (YELLOW); GLUCOSE, URINE (UA) Negative (NEGATIVE); KETONES,URINE Negative (NEGATIVE); LEUKOCYTE ESTERASE ,URINE Negative (NEGATIVE); NITRATE,URINE Negative (NEGATIVE); OCCULT BLOOD,URINE Negative (NEGATIVE); PROTEIN,URINE Negative (NEGATIVE); UROBILINOGEN,URINE 0.2 mg/dL (0.2-1.0)
[2018-01-06 16:39] LABS: APPEARANCE,URINE Turbid (CLEAR)
[2018-01-06] MEDS ORDERED: MAG HYDROX/AL HYDROX/SIMETH ES 30 ML SUSP UDCUP ONE (16:51)
[2018-01-06] MEDS ORDERED: KETOROLAC TROMETHAMINE 15MG/ML ONE (16:51)
[2018-01-06 16:53] LABS: BACTERIA,URINE Few /HPF (None Seen); RBC,URINE None Seen /HPF (0-1); SQUAMOUS EPITHELIAL CELL,UR None Seen /HPF (0-2); WBC,URINE None Seen /HPF (0-1); YEAST,URINE BUDDING Many /HPF (None Seen)
[2018-01-06 16:54] LABS: ALBUMIN 2.4 g/dL (3.5-5.0); POTASSIUM 4.2 mmol/L (3.5-5.1); TOTAL PROTEIN, SERUM 6.3 g/dL (6.0-8.3)
[2018-01-06 16:57] LABS: BASOPHILS % (AUTO) 0.6 % (0.0-5.0); EOSINOPHILS % (AUTO) 1.1 % (0.0-8.0); HEMATOCRIT 29.3 % (42-54); LYMPHOCYTES % (AUTO) 24.7 % (21.0-51.0); MEAN CORPUSCULAR HEMOGLOBIN 30.9 pg (27.0-33.0); MEAN CORPUSCULAR HGB CONC 34.3 g/dL (32.0-36.0); MEAN CORPUSCULAR VOLUME 90.2 fL (79-99); MONOCYTES % (AUTO) 18.5 % (3.0-13.0); NEUTROPHILS % (AUTO) 55.1 % (40.0-77.0); NUCLEATED RED BLOOD CELLS 0.2 % (0.0-0.19); PLATELET COUNT (AUTO) 37 K/uL (130-400); RED BLOOD CELL COUNT(AUTO) 3.25 MIL/uL (4.50-6.20); RED CELL DISTRIBUTION WIDTH 15.9 % (11.0-15.5); WHITE BLOOD COUNT (AUTO) 1.4 K/uL (4.8-10.8)
[2018-01-06 17:19] LABS: PLATELET MORPHOLOGY COMMENT MARKED DECREASED
[2018-01-06] MEDS ORDERED: LACTULOSE 20 GM/30 ML UDCUP ONE (17:58)
[2018-01-06] MEDS ORDERED: SODIUM CHLORIDE 0.9% 1000ML 1,000 ML IV ONE (17:59)
[2018-01-06] MEDS ORDERED: INSULIN HUMULIN R 100 UNIT/ML 3ML ONE ×2 (18:00→20:24)
[2018-01-06] MEDS: SODIUM CHLORIDE 0.9% 1000ML 1,000 ML IV SCH (19:28)
[2018-01-06] MEDS ORDERED: LIDOCAINE HCL-MPF 1% 2ML VIAL IVP PRN ×2 (19:30)
[2018-01-06] MEDS ORDERED: POTASSIUM CHLORIDE 10% ELIXIR 20 MEQ/15 ML UDCUP PO PRN ×2 (19:30)
[2018-01-06] MEDS ORDERED: POTASSIUM CHLORIDE 20 MEQ ERTAB PO PRN (19:30)
[2018-01-06] MEDS ORDERED: HYDRALAZINE HCL 20 MG/ML VIAL IV PRN (19:30)
[2018-01-06] MEDS ORDERED: POTASSIUM CHLORIDE 20MEQ/100ML 100 ML IV PRN ×2 (19:30)
[2018-01-06] MEDS ORDERED: DEXTROSE 50%-WATER 50 ML DISP.SYRIN IV PRN (19:30)
[2018-01-06] MEDS ORDERED: GLUCAGON 1MG KIT 1 MG ML IM PRN (19:30)
[2018-01-06] MEDS: LACTULOSE 20 GM/30 ML UDCUP PO SCH (19:45)
[2018-01-06] MEDS ORDERED: MORPHINE SULFATE 8 MG/ML VIAL ONE (20:23)
[2018-01-06] MEDS: INSULIN HUMULIN R 100 UNIT/ML 3ML SQ SCH (21:00)
[2018-01-07] MEDS ORDERED: MORPHINE SULFATE 2 MG/ML 1ML SYG ONE (00:57)
[2018-01-07] MEDS: LACTULOSE 20 GM/30 ML UDCUP PO SCH ×7 (01:45→23:18)
[2018-01-07 01:55] VITALS: BP 133/69
[2018-01-07] MEDS ORDERED: ZOLP10TA2 PO (02:14)
[2018-01-07] MEDS ORDERED: INSLAN SQ (02:14)
[2018-01-07] MEDS ORDERED: TRAZ300T2 PO (02:14)
[2018-01-07] MEDS ORDERED: ONDANSETRON HCL MDV 20ML 2 MG/ML VIAL IVP PRN (02:15)
[2018-01-07] MEDS ORDERED: SODIUM CHLORIDE 0.9% 1000ML 1,000 ML IV SCH (02:15)
[2018-01-07] MEDS ORDERED: ALPR-411 PO (02:40)
[2018-01-07 04:00] VITALS: BP 107/60
[2018-01-07] MEDS: SODIUM CHLORIDE 0.9% 1000ML 1,000 ML IV SCH (05:28)
[2018-01-07 06:15] LABS: MEAN CORPUSCULAR HEMOGLOBIN 30.6 pg (27.0-33.0); MEAN CORPUSCULAR HGB CONC 34.5 g/dL (32.0-36.0); MEAN CORPUSCULAR VOLUME 88.7 fL (79-99); PLATELET COUNT (AUTO) 27 K/uL (130-400); RED CELL DISTRIBUTION WIDTH 15.7 % (11.0-15.5)
[2018-01-07 06:27] LABS: ALBUMIN 1.9 g/dL (3.5-5.0); BILIRUBIN,TOTAL 2.4 mg/dL (0.2-1.0); CREATININE 0.8 mg/dL (0.5-1.5); POTASSIUM 3.6 mmol/L (3.5-5.1); TOTAL PROTEIN, SERUM 5.1 g/dL (6.0-8.3)
[2018-01-07 07:01] LABS: BASOPHILS % (MANUAL) 2 % (0-2); EOSINOPHILS % (MANUAL) 2 % (1-6); LYMPHOCYTES % (MANUAL) 42 % (22-44); MAN.DIFF COMMENT-IMPRESSION MANUAL DIFFERENTIAL; MONOCYTES % (MANUAL) 18 % (2-9); SEGMENTED NEUTROPHILS % 36 % (40-70)
[2018-01-07] MEDS: INSULIN HUMULIN R 100 UNIT/ML 3ML SQ SCH ×4 (07:30→23:20)
[2018-01-07 08:00] VITALS: BP 110/57
[2018-01-07] MEDS ORDERED: PANTOPRAZOLE 40 MG/VIAL IVP SCH (09:00)
[2018-01-07] MEDS: MORPHINE SULFATE 2 MG/ML 1ML SYG IV PRN ×3 (09:41→18:50)
[2018-01-07] MEDS: ALPRAZOLAM 1 MG TAB PO SCH ×2 (11:20→23:18)
[2018-01-07 11:55] VITALS: BP 109/59
[2018-01-07 16:00] VITALS: BP 100/58
[2018-01-07 20:00] VITALS: BP 127/76
[2018-01-08] VITALS: BP 139/74
[2018-01-08 04:00] VITALS: BP 118/67
[2018-01-08] MEDS: LACTULOSE 20 GM/30 ML UDCUP PO SCH ×7 (06:29→20:07)
[2018-01-08] MEDS: INSULIN HUMULIN R 100 UNIT/ML 3ML SQ SCH ×4 (06:30→21:12)
[2018-01-08 08:00] VITALS: BP 95/46
[2018-01-08] MEDS: ALPRAZOLAM 1 MG TAB PO SCH ×2 (09:00→20:07)
[2018-01-08 09:36] LABS: RETICULOCYTE % (AUTO) 2.92 % (0.42-2.23)
[2018-01-08 12:00] VITALS: BP 102/55
[2018-01-08 16:00] VITALS: BP 137/84
[2018-01-08] MEDS: MORPHINE SULFATE 2 MG/ML 1ML SYG IV PRN ×2 (18:34→21:14)
[2018-01-08 20:00] VITALS: BP 126/70
[2018-01-09] VITALS: BP 126/66
[2018-01-09] MEDS: LACTULOSE 20 GM/30 ML UDCUP PO SCH ×5 (00:07→18:29)
[2018-01-09 04:00] VITALS: BP 115/66
[2018-01-09] MEDS: INSULIN HUMULIN R 100 UNIT/ML 3ML SQ SCH ×4 (06:31→21:04)
[2018-01-09 07:00] VITALS: BP 103/55
[2018-01-09] MEDS: ALPRAZOLAM 1 MG TAB PO SCH ×2 (09:00→19:46)
[2018-01-09 09:15] LABS: BASOPHILS % (AUTO) 1.8 % (0.0-5.0); EOSINOPHILS % (AUTO) 3.3 % (0.0-8.0); HEMATOCRIT 26.3 % (42-54); MEAN CORPUSCULAR HEMOGLOBIN 30.5 pg (27.0-33.0); MEAN CORPUSCULAR HGB CONC 34.7 g/dL (32.0-36.0); MEAN CORPUSCULAR VOLUME 87.9 fL (79-99); MONOCYTES % (AUTO) 19.1 % (3.0-13.0); NEUTROPHILS % (AUTO) 42.8 % (40.0-77.0); NUCLEATED RED BLOOD CELLS 0.1 % (0.0-0.19); PLATELET COUNT (AUTO) 31 K/uL (130-400); RED BLOOD CELL COUNT(AUTO) 2.99 MIL/uL (4.50-6.20); RED CELL DISTRIBUTION WIDTH 15.7 % (11.0-15.5); WHITE BLOOD COUNT (AUTO) 1.8 K/uL (4.8-10.8)
[2018-01-09 09:20] LABS: CREATININE 0.7 mg/dL (0.5-1.5); POTASSIUM 3.7 mmol/L (3.5-5.1)
[2018-01-09 11:00] VITALS: BP 112/58
[2018-01-09] MEDS: TBO-FILGRASTIM 480 MCG/0.8 ML ML SQ SCH (11:52)
[2018-01-09 15:00] VITALS: BP 112/63
[2018-01-09 19:35] VITALS: BP 116/63
[2018-01-10] VITALS (7 sets, daily range): BP systolic 91–128; BP diastolic 52–78
[2018-01-10] MEDS: LACTULOSE 20 GM/30 ML UDCUP PO SCH ×4 (00:33→17:44)
[2018-01-10] MEDS: MORPHINE SULFATE 2 MG/ML 1ML SYG IV PRN ×4 (03:28→21:56)
[2018-01-10 04:45] LABS: BASOPHILS % (AUTO) 0.4 % (0.0-5.0); HEMATOCRIT 28.3 % (42-54); LYMPHOCYTES % (AUTO) 11.8 % (21.0-51.0); MEAN CORPUSCULAR HEMOGLOBIN 31.8 pg (27.0-33.0); MEAN CORPUSCULAR HGB CONC 35.8 g/dL (32.0-36.0); MONOCYTES % (AUTO) 8.7 % (3.0-13.0); NEUTROPHILS % (AUTO) 78.1 % (40.0-77.0); NUCLEATED RED BLOOD CELLS 0.1 % (0.0-0.19); PLATELET COUNT (AUTO) 32 K/uL (130-400); RED BLOOD CELL COUNT(AUTO) 3.18 MIL/uL (4.50-6.20); RED CELL DISTRIBUTION WIDTH 15.7 % (11.0-15.5); WHITE BLOOD COUNT (AUTO) 6.9 K/uL (4.8-10.8)
[2018-01-10 04:54] LABS: CREATININE 0.9 mg/dL (0.5-1.5); POTASSIUM 3.4 mmol/L (3.5-5.1)
[2018-01-10] MEDS: INSULIN HUMULIN R 100 UNIT/ML 3ML SQ SCH ×4 (05:49→21:16)
[2018-01-10] MEDS: POTASSIUM CHLORIDE 20 MEQ ERTAB PO PRN ×2 (06:37→17:44)
[2018-01-10] MEDS: ALPRAZOLAM 1 MG TAB PO SCH ×2 (07:54→19:41)
[2018-01-10] MEDS: TBO-FILGRASTIM 480 MCG/0.8 ML ML SQ SCH (07:54)
[2018-01-10] MEDS ORDERED: DIPHENHYDRAMINE HCL 25 MG CAPSULE PO PRN (12:00)
[2018-01-10] MEDS: HYDROXYZINE HCL 25 MG TABLET PO SCH ×2 (15:07→19:41)
[2018-01-10] MEDS ORDERED: OLANZAPINE ODT 5 MG TAB SL PRN (20:00)
[2018-01-10] MEDS ORDERED: FAMOTIDINE 20MG TAB 20 MG TAB PO SCH (21:00)
[2018-01-11] MEDS: LACTULOSE 20 GM/30 ML UDCUP PO SCH ×4 (00:15→20:49)
[2018-01-11] MEDS: MORPHINE SULFATE 2 MG/ML 1ML SYG IV PRN ×3 (02:39→20:50)
[2018-01-11 03:31] VITALS: BP 111/61
[2018-01-11] MEDS: INSULIN HUMULIN R 100 UNIT/ML 3ML SQ SCH ×4 (06:17→20:58)
[2018-01-11] MEDS: PANTOPRAZOLE SODIUM 40 MG TABLET.DR PO SCH (06:18)
[2018-01-11 07:00] VITALS: BP 109/55
[2018-01-11] MEDS ORDERED: DIATR MEGLU/DIATRIZOATE SODIUM 30 ML BOTTLE ONE (08:30)
[2018-01-11] MEDS: ALPRAZOLAM 1 MG TAB PO SCH ×2 (09:00→20:49)
[2018-01-11] MEDS: HYDROXYZINE HCL 25 MG TABLET PO SCH ×3 (09:00→20:49)
[2018-01-11 11:00] VITALS: BP 134/75
[2018-01-11] MEDS ORDERED: IOPAMIDOL-370 75 ML VIAL IV ONE (11:16)
[2018-01-11 15:00] VITALS: BP 127/57
[2018-01-11 19:45] VITALS: BP 123/69
[2018-01-11 23:30] VITALS: BP 129/72
[2018-01-12] MEDS: LACTULOSE 20 GM/30 ML UDCUP PO SCH ×4 (01:45→21:31)
[2018-01-12 04:10] VITALS: BP 139/75
[2018-01-12] MEDS: PANTOPRAZOLE SODIUM 40 MG TABLET.DR PO SCH (06:40)
[2018-01-12] MEDS: INSULIN HUMULIN R 100 UNIT/ML 3ML SQ SCH ×4 (06:51→21:38)
[2018-01-12 08:00] VITALS: BP 148/81
[2018-01-12] MEDS: HYDROXYZINE HCL 25 MG TABLET PO SCH ×3 (09:00→21:31)
[2018-01-12] MEDS: ALPRAZOLAM 1 MG TAB PO SCH ×2 (09:00→21:31)
[2018-01-12 12:00] VITALS: BP 143/76
[2018-01-12 16:00] VITALS: BP 116/59
[2018-01-12 20:10] VITALS: BP 127/77
[2018-01-13] VITALS (7 sets, daily range): BP systolic 94–183; BP diastolic 53–91
[2018-01-13] MEDS: LACTULOSE 20 GM/30 ML UDCUP PO SCH ×4 (01:32→18:19)
[2018-01-13 04:51] LABS: APPEARANCE,URINE Clear (CLEAR); BILIRUBIN,URINE Negative (NEGATIVE); COLOR,URINE Dark Yellow (YELLOW); GLUCOSE, URINE (UA) Negative (NEGATIVE); KETONES,URINE Negative (NEGATIVE); LEUKOCYTE ESTERASE ,URINE Negative (NEGATIVE); NITRATE,URINE Negative (NEGATIVE); OCCULT BLOOD,URINE Small (NEGATIVE); PH,URINE 8.5 (5.0-8.0); PROTEIN,URINE Negative (NEGATIVE)
[2018-01-13 05:07] LABS: BACTERIA,URINE None Seen /HPF (None Seen); RBC,URINE 0-1 /HPF (0-1); SQUAMOUS EPITHELIAL CELL,UR Rare /HPF (0-2); WBC,URINE None Seen /HPF (0-1)
[2018-01-13 05:22] LABS: ALBUMIN 2.2 g/dL (3.5-5.0); BILIRUBIN,TOTAL 2.5 mg/dL (0.2-1.0); TOTAL PROTEIN, SERUM 6.3 g/dL (6.0-8.3)
[2018-01-13 06:29] LABS: MEAN CORPUSCULAR HEMOGLOBIN 31.7 pg (27.0-33.0); MEAN CORPUSCULAR HGB CONC 36.2 g/dL (32.0-36.0); MEAN CORPUSCULAR VOLUME 87.5 fL (79-99); NUCLEATED RED BLOOD CELLS 0.1 % (0.0-0.19); PLATELET COUNT (AUTO) 35 K/uL (130-400); RED BLOOD CELL COUNT(AUTO) 2.86 MIL/uL (4.50-6.20); RED CELL DISTRIBUTION WIDTH 15.8 % (11.0-15.5); WHITE BLOOD COUNT (AUTO) 2.2 K/uL (4.8-10.8)
[2018-01-13] MEDS: PANTOPRAZOLE SODIUM 40 MG TABLET.DR PO SCH (06:41)
[2018-01-13] MEDS: INSULIN HUMULIN R 100 UNIT/ML 3ML SQ SCH ×4 (06:52→20:52)
[2018-01-13 07:21] LABS: EOSINOPHILS % (MANUAL) 1 % (1-6); LYMPHOCYTES % (MANUAL) 29 % (22-44); MAN.DIFF COMMENT-IMPRESSION MANUAL DIFFERENTIAL; MONOCYTES % (MANUAL) 8 % (2-9); REACTIVE LYMPHOCYTES 1 % (0-0); SEGMENTED NEUTROPHILS % 61 % (40-70)
[2018-01-13] MEDS: HYDROXYZINE HCL 25 MG TABLET PO SCH ×3 (10:05→20:15)
[2018-01-13] MEDS: ALPRAZOLAM 1 MG TAB PO SCH ×2 (10:05→20:16)
[2018-01-13] MEDS ORDERED: LACTULOSE 20 GM/30 ML UDCUP PR SCH (11:30)
[2018-01-14] MEDS: LACTULOSE 20 GM/30 ML UDCUP PO SCH ×4 (00:53→19:40)
[2018-01-14] MEDS: OLANZAPINE 10MG/ML 1ML VIAL IM PRN ×2 (02:36→20:13)
[2018-01-14 04:15] VITALS: BP 148/68
[2018-01-14] MEDS: INSULIN HUMULIN R 100 UNIT/ML 3ML SQ SCH ×4 (06:08→20:18)
[2018-01-14] MEDS: PANTOPRAZOLE SODIUM 40 MG TABLET.DR PO SCH (06:48)
[2018-01-14 08:00] VITALS: BP 146/75
[2018-01-14] MEDS: ALPRAZOLAM 1 MG TAB PO SCH (09:28)
[2018-01-14] MEDS: HYDROXYZINE HCL 25 MG TABLET PO SCH ×3 (09:28→20:21)
[2018-01-14 12:00] VITALS: BP 111/58
[2018-01-14] MEDS: NEOMY SULF/BACITRAC ZN/POLY OINT 30GM TUBE TP SCH ×2 (14:00→20:23)
[2018-01-14] MEDS ORDERED: LACTULOSE 20 GM/30 ML UDCUP PR SCH (14:45)
[2018-01-14 16:00] VITALS: BP 103/54
[2018-01-14 19:50] VITALS: BP 123/74
[2018-01-15] VITALS: BP 124/74
[2018-01-15] MEDS: LACTULOSE 20 GM/30 ML UDCUP PO SCH ×3 (01:19→14:19)
[2018-01-15 04:00] VITALS: BP 129/60
[2018-01-15] MEDS: INSULIN HUMULIN R 100 UNIT/ML 3ML SQ SCH ×2 (06:10→12:23)
[2018-01-15] MEDS: PANTOPRAZOLE SODIUM 40 MG TABLET.DR PO SCH (06:44)
[2018-01-15 07:35] VITALS: BP 132/66
[2018-01-15] MEDS: HYDROXYZINE HCL 25 MG TABLET PO SCH ×2 (09:46→14:17)
[2018-01-15] MEDS: NEOMY SULF/BACITRAC ZN/POLY OINT 30GM TUBE TP SCH (09:47)
[2018-01-15 10:49] VITALS: BP 122/65
[2018-01-15] MEDS ORDERED: LACT PO (16:11)
[2018-01-15 16:42] VITALS: BP 117/50
== END 2018-01-15 16:40 | disposition home or self-care (01) | DRG 279 ==
LOC: EDH 15:59 → EDHIP 16:00 → 3CH 01-07 01:46
PROVIDERS: ADMIT Internal Medicine Nephrology; ATTEND Internal Medicine Nephrology
DX: K72.90 Hepatic failure, unspecified without coma (principal); E43 Unspecified severe protein-calorie malnutrition; D61.818 Other pancytopenia; D69.59 Other secondary thrombocytopenia; E87.1 Hypo-osmolality and hyponatremia; E11.65 Type 2 diabetes mellitus with hyperglycemia; K76.6 Portal hypertension; E46 Unspecified protein-calorie malnutrition; K74.60 Unspecified cirrhosis of liver; B37.9 Candidiasis, unspecified; Z91.14 Patient's other noncompliance with medication regimen; F12.90 Cannabis use, unspecified, uncomplicated; F14.90 Cocaine use, unspecified, uncomplicated; M79.7 Fibromyalgia; B19.20 Unspecified viral hepatitis C without hepatic coma; F39 Unspecified mood [affective] disorder; F41.1 Generalized anxiety disorder; F60.7 Dependent personality disorder; Z68.24 Body mass index [BMI] 24.0-24.9, adult; Z91.19 Patient's noncompliance with other medical treatment and regimen; Z95.5 Presence of coronary angioplasty implant and graft; Z88.8 Allergy status to other drugs, medicaments and biological substances
CPT/HCPCS: 36415; 74178; 74181; 76700; 80048; 80053; 81001; 82105; 82140; 82270; 82607; 82728; 82746; 82948; 83540; 83550; 85025; 85027; 85045; 87088; 87186; A4344; J1815; J1885; J2270; J7030; Q0163; Q9963; Q9967

== ENCOUNTER 2018-01-17 10:23 | Inpatient (IN) | payer MEDICAID ==
[~2018-01-17] VITALS: Ht 172.7 cm; Wt 76.2 kg
[~2018-01-17 10:23] MED LIST changes: +ALPR-411 PO; -ALPR0.5T8 PO; -RIFA550T PO; -SLOMG PO; +TRAZ300T2 PO; -ZOLP5TAB2 PO
[2018-01-17] MEDS ORDERED: CEFTRIAXONE SODIUM 2 GM VIAL ONE (11:10)
[2018-01-17] MEDS ORDERED: SODIUM CHLORIDE 0.9% 500ML 500 ML IV ONE (11:10)
[2018-01-17] MEDS ORDERED: ALBUMIN (HUMAN) 25% 100 ML IV ONE (11:10)
[2018-01-17 11:17] LABS: BASOPHILS % (AUTO) 0.6 % (0.0-5.0); EOSINOPHILS % (AUTO) 1.1 % (0.0-8.0); LYMPHOCYTES % (AUTO) 49.7 % (21.0-51.0); MEAN CORPUSCULAR HEMOGLOBIN 31.1 pg (27.0-33.0); MEAN CORPUSCULAR HGB CONC 35.6 g/dL (32.0-36.0); MEAN CORPUSCULAR VOLUME 87.3 fL (79-99); MONOCYTES % (AUTO) 13.4 % (3.0-13.0); NEUTROPHILS % (AUTO) 35.2 % (40.0-77.0); NUCLEATED RED BLOOD CELLS 0.1 % (0.0-0.19); PLATELET COUNT (AUTO) 38 K/uL (130-400); RED CELL DISTRIBUTION WIDTH 15.7 % (11.0-15.5); WHITE BLOOD COUNT (AUTO) 3.7 K/uL (4.8-10.8)
[2018-01-17 11:27] LABS: CARBON DIOXIDE 20 mmol/L (21-32); CHLORIDE 106 mmol/L (101-111); CREATININE 1.3 mg/dL (0.5-1.5); GLOMERULAR FILTR. RATE CALC 63 mL/min (>60); GLUCOSE,RANDOM 236 mg/dL (70-105); POTASSIUM 4.2 mmol/L (3.5-5.1); SODIUM SERUM 137 mmol/L (136-145); UREA NITROGEN, BLOOD 34 mg/dL (7-18)
[2018-01-17 11:30] LABS: ALCOHOL, BLOOD < 3 mg/dL (0-10)
[2018-01-17 11:32] LABS: ALANINE AMINOTRANSFERASE 88 U/L (12-78); ALBUMIN 2.4 g/dL (3.5-5.0); ASPARTATE AMINOTRANSFERASE 106 U/L (10-37); BILIRUBIN,DIRECT 2.2 mg/dL (0.0-0.3); BILIRUBIN,TOTAL 6.5 mg/dL (0.2-1.0); CREATINE KINASE, TOTAL 91 U/L (21-232); LIPASE 136 U/L (114-286); TOTAL PROTEIN, SERUM 6.5 g/dL (6.0-8.3)
[2018-01-17 11:39] LABS: INR 1.41 (0.85-1.15); PARTIAL THROMBOPLASTIN TIME 41.9 SEC (26.3-35.5); PROTHROMBIN TIME 14.7 SEC (9.6-11.6)
[2018-01-17] MEDS ORDERED: LACTULOSE 20 GM/30 ML UDCUP ONE (12:22)
[2018-01-17] MEDS ORDERED: ONDANSETRON HCL 4 MG/2 ML VIAL IV PRN (16:00)
[2018-01-17] MEDS ORDERED: ACETAMINOPHEN 325 MG TAB PO PRN (16:00)
[2018-01-17] MEDS ORDERED: SODIUM CHLORIDE 0.9% 1000ML 1,000 ML IV ONE (18:22)
[2018-01-18] MEDS: SODIUM CHLORIDE 0.9% 1000ML 1,000 ML IV SCH ×4 (01:56→21:56)
[2018-01-18] MEDS ORDERED: ACETAMINOPHEN 325 MG TAB ONE (02:46)
[2018-01-18 07:16] LABS: MEAN CORPUSCULAR HEMOGLOBIN 31.5 pg (27.0-33.0); MEAN CORPUSCULAR HGB CONC 36.4 g/dL (32.0-36.0); MEAN CORPUSCULAR VOLUME 86.6 fL (79-99); NUCLEATED RED BLOOD CELLS 0.1 % (0.0-0.19); RED BLOOD CELL COUNT(AUTO) 2.36 MIL/uL (4.50-6.20); RED CELL DISTRIBUTION WIDTH 17.2 % (11.0-15.5); WHITE BLOOD COUNT (AUTO) 1.7 K/uL (4.8-10.8)
[2018-01-18 07:54] LABS: HEMATOCRIT 20.5 % (42-54); PLATELET COUNT (AUTO) 6 K/uL (130-400)
[2018-01-18 08:01] LABS: LYMPHOCYTES % (MANUAL) 27 % (22-44); MAN.DIFF COMMENT-IMPRESSION MANUAL DIFFERENTIAL; MONOCYTES % (MANUAL) 2 % (2-9); SEGMENTED NEUTROPHILS % 71 % (40-70)
[2018-01-18 12:50] VITALS: BP 117/68
[2018-01-18] MEDS: LEVOFLOXACIN 500 MG/D5W 100 ML 100 ML IV SCH (15:55)
[2018-01-18] MEDS: LACTULOSE 20 GM/30 ML UDCUP PO SCH ×2 (15:55→21:42)
[2018-01-18 16:16] VITALS: BP 119/64
[2018-01-18] MEDS: ALPRAZOLAM 1 MG TAB PO PRN (16:17)
[2018-01-18] MEDS: INSULIN HUMULIN R 100 UNIT/ML 3ML SQ SCH ×2 (16:30→21:49)
[2018-01-18] MEDS: INSULIN LISPRO 100 UNIT/ML 3ML SQ SCH (16:50)
[2018-01-18] MEDS: MORPHINE SULFATE 2 MG/ML 1ML SYG IVP PRN ×2 (19:38→23:50)
[2018-01-18 20:00] VITALS: BP 118/65
[2018-01-18] MEDS ORDERED: SODIUM CHLORIDE 0.9% 250 ML IV ONE (21:15)
[2018-01-18] MEDS: TRAZODONE HCL 100 MG TABLET PO SCH (21:42)
[2018-01-18] MEDS: INSULIN GLARGINE 100 UNITS/ML 10 ML VIAL SQ SCH (21:48)
[2018-01-18 23:50] VITALS: BP 108/56
[2018-01-19 04:00] VITALS: BP 122/65
[2018-01-19 04:44] LABS: AMPHET/METH SCREEN,URINE NEGATIVE (NEGATIVE); BARBITURATE SCREEN, URINE NEGATIVE (NEGATIVE); BENZODIAZEPINES SCREEN,URINE POSITIVE (NEGATIVE); CANNABINOID SCREEN,URINE NEGATIVE (NEGATIVE); COCAINE SCREEN,URINE POSITIVE (NEGATIVE); OPIATE SCREEN,URINE NEGATIVE (NEGATIVE); PHENCYCLIDINE SCREEN,URINE NEGATIVE (NEGATIVE)
[2018-01-19] MEDS: MORPHINE SULFATE 2 MG/ML 1ML SYG IVP PRN ×5 (05:08→21:19)
[2018-01-19 05:57] LABS: MEAN CORPUSCULAR HEMOGLOBIN 31.3 pg (27.0-33.0); MEAN CORPUSCULAR HGB CONC 36.2 g/dL (32.0-36.0); MEAN CORPUSCULAR VOLUME 86.5 fL (79-99); NUCLEATED RED BLOOD CELLS 0.2 % (0.0-0.19); PLATELET COUNT (AUTO) 35 K/uL (130-400); RED BLOOD CELL COUNT(AUTO) 2.24 MIL/uL (4.50-6.20); RED CELL DISTRIBUTION WIDTH 17.1 % (11.0-15.5)
[2018-01-19 06:04] LABS: HEMATOCRIT 19.4 % (42-54); WHITE BLOOD COUNT (AUTO) 1.1 K/uL (4.8-10.8)
[2018-01-19] MEDS: INSULIN HUMULIN R 100 UNIT/ML 3ML SQ SCH ×4 (06:19→21:00)
[2018-01-19] MEDS: ALPRAZOLAM 1 MG TAB PO PRN ×2 (06:22→18:24)
[2018-01-19 07:49] LABS: EOSINOPHILS % (MANUAL) 1 % (1-6); LYMPHOCYTES % (MANUAL) 42 % (22-44); MONOCYTES % (MANUAL) 4 % (2-9); SEGMENTED NEUTROPHILS % 53 % (40-70)
[2018-01-19 07:50] LABS: MAN.DIFF COMMENT-IMPRESSION MANUAL DIFFERENTIAL
[2018-01-19] MEDS: LACTULOSE 20 GM/30 ML UDCUP PO SCH ×3 (08:15→21:18)
[2018-01-19] MEDS: INSULIN LISPRO 100 UNIT/ML 3ML SQ SCH ×3 (08:18→17:20)
[2018-01-19 08:22] VITALS: BP 126/70
[2018-01-19] MEDS: SODIUM CHLORIDE 0.9% 1000ML 1,000 ML IV SCH ×2 (09:28→18:17)
[2018-01-19 11:22] VITALS: BP 126/70
[2018-01-19] MEDS: LEVOFLOXACIN 500 MG/D5W 100 ML 100 ML IV SCH (14:42)
[2018-01-19 17:15] VITALS: BP 123/74
[2018-01-19 20:00] VITALS: BP 133/64
[2018-01-19] MEDS: TRAZODONE HCL 100 MG TABLET PO SCH (21:17)
[2018-01-19] MEDS: INSULIN GLARGINE 100 UNITS/ML 10 ML VIAL SQ SCH (21:43)
[2018-01-20] VITALS: BP 125/72
[2018-01-20] MEDS: MORPHINE SULFATE 2 MG/ML 1ML SYG IVP PRN ×3 (02:57→16:43)
[2018-01-20 04:00] VITALS: BP 118/71
[2018-01-20] MEDS: SODIUM CHLORIDE 0.9% 1000ML 1,000 ML IV SCH ×2 (05:01→13:56)
[2018-01-20 06:27] LABS: HEMATOCRIT 22.8 % (42-54); MEAN CORPUSCULAR HGB CONC 35.4 g/dL (32.0-36.0); MEAN CORPUSCULAR VOLUME 87.4 fL (79-99); NUCLEATED RED BLOOD CELLS 0.3 % (0.0-0.19); PLATELET COUNT (AUTO) 46 K/uL (130-400); RED BLOOD CELL COUNT(AUTO) 2.61 MIL/uL (4.50-6.20); WHITE BLOOD COUNT (AUTO) 1.4 K/uL (4.8-10.8)
[2018-01-20] MEDS: INSULIN HUMULIN R 100 UNIT/ML 3ML SQ SCH ×4 (06:33→22:19)
[2018-01-20 07:00] VITALS: BP 113/57
[2018-01-20 07:55] LABS: BAND NEUTROPHILS % (MANUAL) 1 % (0-2); EOSINOPHILS % (MANUAL) 2 % (1-6); LYMPHOCYTES % (MANUAL) 35 % (22-44); MAN.DIFF COMMENT-IMPRESSION MANUAL DIFFERENTIAL; MONOCYTES % (MANUAL) 6 % (2-9); PLATELET MORPHOLOGY COMMENT MARKED DECREASED; SEGMENTED NEUTROPHILS % 56 % (40-70)
[2018-01-20] MEDS: ALPRAZOLAM 1 MG TAB PO PRN ×2 (08:31→22:05)
[2018-01-20] MEDS: LACTULOSE 20 GM/30 ML UDCUP PO SCH ×3 (08:31→23:54)
[2018-01-20] MEDS: INSULIN LISPRO 100 UNIT/ML 3ML SQ SCH ×3 (08:40→17:00)
[2018-01-20 11:00] VITALS: BP 144/71
[2018-01-20] MEDS ORDERED: OXYC-43 PO (11:14)
[2018-01-20 15:31] VITALS: BP 114/53
[2018-01-20] MEDS: LEVOFLOXACIN 500 MG/D5W 100 ML 100 ML IV SCH (16:43)
[2018-01-20 21:08] VITALS: BP 110/53
[2018-01-20] MEDS ORDERED: MORPHINE SULFATE 4 MG/1ML SYG ONE (22:01)
[2018-01-20] MEDS: TRAZODONE HCL 100 MG TABLET PO SCH (22:05)
[2018-01-20] MEDS: RIFAXIMIN 200 MG TABLET PO SCH (22:06)
[2018-01-20] MEDS: INSULIN GLARGINE 100 UNITS/ML 10 ML VIAL SQ SCH (22:21)
[2018-01-21 00:02] VITALS: BP 116/54
[2018-01-21] MEDS ORDERED: MORPHINE SULFATE 4 MG/1ML SYG ONE ×2 (01:54→05:46)
[2018-01-21 04:05] VITALS: BP 114/58
[2018-01-21 05:42] LABS: BASOPHILS % (AUTO) 0.5 % (0.0-5.0); EOSINOPHILS % (AUTO) 5.3 % (0.0-8.0); HEMATOCRIT 21.4 % (42-54); LYMPHOCYTES % (AUTO) 38.6 % (21.0-51.0); MEAN CORPUSCULAR HEMOGLOBIN 31.1 pg (27.0-33.0); MEAN CORPUSCULAR HGB CONC 35.9 g/dL (32.0-36.0); MEAN CORPUSCULAR VOLUME 86.6 fL (79-99); MONOCYTES % (AUTO) 11.2 % (3.0-13.0); NEUTROPHILS % (AUTO) 44.4 % (40.0-77.0); NUCLEATED RED BLOOD CELLS 0.1 % (0.0-0.19); PLATELET COUNT (AUTO) 44 K/uL (130-400); RED BLOOD CELL COUNT(AUTO) 2.47 MIL/uL (4.50-6.20); RED CELL DISTRIBUTION WIDTH 17.2 % (11.0-15.5); WHITE BLOOD COUNT (AUTO) 1.2 K/uL (4.8-10.8)
[2018-01-21 05:56] LABS: POTASSIUM 4.1 mmol/L (3.5-5.1)
[2018-01-21] MEDS: LACTULOSE 20 GM/30 ML UDCUP PO SCH ×4 (05:57→23:51)
[2018-01-21 07:00] VITALS: BP 120/55
[2018-01-21] MEDS: INSULIN HUMULIN R 100 UNIT/ML 3ML SQ SCH ×4 (07:36→21:50)
[2018-01-21] MEDS: INSULIN LISPRO 100 UNIT/ML 3ML SQ SCH ×3 (08:00→18:27)
[2018-01-21] MEDS: RIFAXIMIN 200 MG TABLET PO SCH (09:00)
[2018-01-21] MEDS: ALPRAZOLAM 1 MG TAB PO PRN ×2 (09:50→21:44)
[2018-01-21] MEDS: MORPHINE SULFATE 4 MG/1ML SYG IVP PRN ×4 (09:50→22:35)
[2018-01-21 11:00] VITALS: BP 117/55
[2018-01-21] MEDS: RIFAXIMIN 550 MG TABLET PO SCH ×2 (14:22→21:36)
[2018-01-21] MEDS: LEVOFLOXACIN 500 MG/D5W 100 ML 100 ML IV SCH (14:22)
[2018-01-21] MEDS: SODIUM CHLORIDE 0.9% 1000ML 1,000 ML IV SCH (14:23)
[2018-01-21 16:00] VITALS: BP 96/53
[2018-01-21 20:46] VITALS: BP 105/46
[2018-01-21] MEDS: TRAZODONE HCL 100 MG TABLET PO SCH (21:36)
[2018-01-21] MEDS: INSULIN GLARGINE 100 UNITS/ML 10 ML VIAL SQ SCH (21:49)
[2018-01-22 00:44] VITALS: BP 132/66
[2018-01-22] MEDS: MORPHINE SULFATE 4 MG/1ML SYG IVP PRN ×5 (02:37→20:12)
[2018-01-22 06:27] VITALS: BP 113/62
[2018-01-22] MEDS: LACTULOSE 20 GM/30 ML UDCUP PO SCH ×3 (06:39→17:32)
[2018-01-22] MEDS: INSULIN HUMULIN R 100 UNIT/ML 3ML SQ SCH ×4 (06:49→22:41)
[2018-01-22 07:00] VITALS: BP 106/55
[2018-01-22] MEDS: RIFAXIMIN 550 MG TABLET PO SCH ×2 (08:38→22:33)
[2018-01-22] MEDS: INSULIN LISPRO 100 UNIT/ML 3ML SQ SCH ×3 (08:52→17:00)
[2018-01-22 11:00] VITALS: BP 108/55
[2018-01-22] MEDS: ALPRAZOLAM 1 MG TAB PO PRN (11:24)
[2018-01-22] MEDS: LEVOFLOXACIN 500 MG/D5W 100 ML 100 ML IV SCH (15:04)
[2018-01-22] MEDS: SODIUM CHLORIDE 0.9% 1000ML 1,000 ML IV SCH (15:18)
[2018-01-22 16:00] VITALS: BP 129/67
[2018-01-22 20:55] VITALS: BP 115/68
[2018-01-22] MEDS: TRAZODONE HCL 100 MG TABLET PO SCH (22:33)
[2018-01-22] MEDS: INSULIN GLARGINE 100 UNITS/ML 10 ML VIAL SQ SCH (22:40)
[2018-01-23] MEDS: LACTULOSE 20 GM/30 ML UDCUP PO SCH ×3 (00:09→14:02)
[2018-01-23] MEDS: MORPHINE SULFATE 4 MG/1ML SYG IVP PRN ×5 (00:10→22:00)
[2018-01-23 00:43] VITALS: BP 115/54
[2018-01-23 04:32] VITALS: BP 105/58
[2018-01-23 06:41] LABS: BASOPHILS % (AUTO) 0.7 % (0.0-5.0); EOSINOPHILS % (AUTO) 5.2 % (0.0-8.0); HEMATOCRIT 24.7 % (42-54); LYMPHOCYTES % (AUTO) 34.8 % (21.0-51.0); MEAN CORPUSCULAR HEMOGLOBIN 30.8 pg (27.0-33.0); MEAN CORPUSCULAR HGB CONC 34.9 g/dL (32.0-36.0); MEAN CORPUSCULAR VOLUME 88.2 fL (79-99); MONOCYTES % (AUTO) 9.5 % (3.0-13.0); NEUTROPHILS % (AUTO) 49.8 % (40.0-77.0); PLATELET COUNT (AUTO) 53 K/uL (130-400); RED CELL DISTRIBUTION WIDTH 20.6 % (11.0-15.5); WHITE BLOOD COUNT (AUTO) 1.8 K/uL (4.8-10.8)
[2018-01-23] MEDS: INSULIN HUMULIN R 100 UNIT/ML 3ML SQ SCH ×4 (06:53→21:00)
[2018-01-23 06:57] LABS: CREATININE 0.9 mg/dL (0.5-1.5); POTASSIUM 3.9 mmol/L (3.5-5.1)
[2018-01-23] MEDS: INSULIN LISPRO 100 UNIT/ML 3ML SQ SCH ×3 (08:00→19:58)
[2018-01-23 08:38] VITALS: BP 110/74
[2018-01-23] MEDS: RIFAXIMIN 550 MG TABLET PO SCH ×2 (09:24→21:48)
[2018-01-23 12:00] VITALS: BP 93/47
[2018-01-23] MEDS: LEVOFLOXACIN 500 MG/D5W 100 ML 100 ML IV SCH (14:02)
[2018-01-23 16:00] VITALS: BP 112/56
[2018-01-23 19:08] VITALS: BP 102/54
[2018-01-23] MEDS: INSULIN GLARGINE 100 UNITS/ML 10 ML VIAL SQ SCH (21:00)
[2018-01-23] MEDS: TRAZODONE HCL 100 MG TABLET PO SCH (21:49)
[2018-01-23] MEDS: ALPRAZOLAM 1 MG TAB PO PRN (21:59)
[2018-01-23] MEDS: LACTULOSE 20 GM/30 ML UDCUP PR SCH (21:59)
[2018-01-24 00:07] VITALS: BP 113/66
[2018-01-24] MEDS: MORPHINE SULFATE 4 MG/1ML SYG IVP PRN ×4 (02:30→21:08)
[2018-01-24 03:49] VITALS: BP 101/43
[2018-01-24 04:54] LABS: HEMATOCRIT 22.9 % (42-54); MEAN CORPUSCULAR HEMOGLOBIN 31.6 pg (27.0-33.0); MEAN CORPUSCULAR VOLUME 87.8 fL (79-99); PLATELET COUNT (AUTO) 43 K/uL (130-400); RED BLOOD CELL COUNT(AUTO) 2.61 MIL/uL (4.50-6.20); RED CELL DISTRIBUTION WIDTH 19.3 % (11.0-15.5); WHITE BLOOD COUNT (AUTO) 1.5 K/uL (4.8-10.8)
[2018-01-24 05:07] LABS: POTASSIUM 3.7 mmol/L (3.5-5.1)
[2018-01-24] MEDS: INSULIN HUMULIN R 100 UNIT/ML 3ML SQ SCH ×4 (07:30→20:45)
[2018-01-24 08:00] VITALS: BP 115/57
[2018-01-24] MEDS: LACTULOSE 20 GM/30 ML UDCUP PR SCH ×2 (09:00→20:42)
[2018-01-24] MEDS: RIFAXIMIN 550 MG TABLET PO SCH ×2 (09:15→20:41)
[2018-01-24] MEDS: INSULIN LISPRO 100 UNIT/ML 3ML SQ SCH ×3 (09:28→17:00)
[2018-01-24] MEDS: LACTULOSE 20 GM/30 ML UDCUP PO SCH (09:30)
[2018-01-24] MEDS: LEVOFLOXACIN 500 MG/D5W 100 ML 100 ML IV SCH (15:43)
[2018-01-24 16:42] VITALS: BP 103/50
[2018-01-24 19:54] VITALS: BP 94/50
[2018-01-24] MEDS: TRAZODONE HCL 100 MG TABLET PO SCH (20:42)
[2018-01-24] MEDS: INSULIN GLARGINE 100 UNITS/ML 10 ML VIAL SQ SCH (20:46)
[2018-01-24] MEDS: ALPRAZOLAM 1 MG TAB PO PRN (21:07)
[2018-01-24 23:30] VITALS: BP 98/46
[2018-01-25] MEDS: MORPHINE SULFATE 4 MG/1ML SYG IVP PRN ×4 (01:28→15:07)
[2018-01-25 04:15] VITALS: BP 108/57
[2018-01-25 05:51] LABS: CREATININE 0.9 mg/dL (0.5-1.5); MAGNESIUM 1.4 mg/dL (1.80-2.40)
[2018-01-25] MEDS: INSULIN HUMULIN R 100 UNIT/ML 3ML SQ SCH ×3 (07:30→16:30)
[2018-01-25 08:20] VITALS: BP 101/48
[2018-01-25] MEDS: RIFAXIMIN 550 MG TABLET PO SCH (09:59)
[2018-01-25] MEDS: INSULIN LISPRO 100 UNIT/ML 3ML SQ SCH ×2 (10:00→12:23)
[2018-01-25 11:39] VITALS: BP 102/47
[2018-01-25] MEDS ORDERED: LACTULOSE 20 GM/30 ML UDCUP PR SCH (13:00)
[2018-01-25] MEDS: LEVOFLOXACIN 500 MG/D5W 100 ML 100 ML IV SCH (15:06)
== END 2018-01-25 18:30 | disposition left against medical advice (07) | DRG 280 ==
LOC: EDH 10:23 → EDHIP 10:24 → 4CH 01-18 12:23 → 3DH 01-19 13:10
PROVIDERS: ADMIT Family Medicine; ATTEND Family Medicine
PROC: 30233R1 Transfusion of Nonautologous Platelets into Peripheral Vein, Percutaneous Approach (ICD-10-PCS; principal; 2018-01-17)
PROC: 30233N1 Transfusion of Nonautologous Red Blood Cells into Peripheral Vein, Percutaneous Approach (ICD-10-PCS; 2018-01-17)
DX: K70.30 Alcoholic cirrhosis of liver without ascites (principal); K70.40 Alcoholic hepatic failure without coma; E43 Unspecified severe protein-calorie malnutrition; D61.818 Other pancytopenia; D73.1 Hypersplenism; E11.9 Type 2 diabetes mellitus without complications; B19.20 Unspecified viral hepatitis C without hepatic coma; E44.0 Moderate protein-calorie malnutrition; F12.90 Cannabis use, unspecified, uncomplicated; F14.90 Cocaine use, unspecified, uncomplicated; M79.7 Fibromyalgia; F41.9 Anxiety disorder, unspecified; F43.10 Post-traumatic stress disorder, unspecified; F19.10 Other psychoactive substance abuse, uncomplicated; Z91.14 Patient's other noncompliance with medication regimen; Z91.19 Patient's noncompliance with other medical treatment and regimen; Z95.5 Presence of coronary angioplasty implant and graft; Z88.8 Allergy status to other drugs, medicaments and biological substances; Z68.25 Body mass index [BMI] 25.0-25.9, adult
CPT/HCPCS: 36415; 36430; 80048; 80076; 80305; 82140; 82550; 82948; 83690; 83735; 84484; 85025; 85027; 85610; 85730; 86701; 86850; 86900; 86901; 86922; 87040; 87390; 93005; G0480; J0696; J1815; J1956; J2270; J7030; J7040; P9016; P9034; P9046

== ENCOUNTER 2018-01-28 13:14 | Inpatient (IN) | payer MEDICAID ==
[~2018-01-28] VITALS: Ht 175.3 cm; Wt 74.8 kg
[2018-01-28 13:43] LABS: BASOPHILS % (AUTO) 0.7 % (0.0-5.0); EOSINOPHILS % (AUTO) 2.7 % (0.0-8.0); HEMATOCRIT 25.5 % (42-54); LYMPHOCYTES % (AUTO) 34.1 % (21.0-51.0); MEAN CORPUSCULAR HEMOGLOBIN 30.9 pg (27.0-33.0); MEAN CORPUSCULAR VOLUME 88.1 fL (79-99); MONOCYTES % (AUTO) 18.4 % (3.0-13.0); NEUTROPHILS % (AUTO) 44.1 % (40.0-77.0); NUCLEATED RED BLOOD CELLS 0.3 % (0.0-0.19); PLATELET COUNT (AUTO) 36 K/uL (130-400); RED BLOOD CELL COUNT(AUTO) 2.89 MIL/uL (4.50-6.20); RED CELL DISTRIBUTION WIDTH 20.2 % (11.0-15.5); WHITE BLOOD COUNT (AUTO) 1.6 K/uL (4.8-10.8)
[2018-01-28 13:55] LABS: CREATININE 1.1 mg/dL (0.5-1.5); POTASSIUM 4.1 mmol/L (3.5-5.1)
[2018-01-28 13:59] LABS: ALBUMIN 2.5 g/dL (3.5-5.0)
[2018-01-28 14:17] LABS: PLATELET MORPHOLOGY COMMENT MARKED DECREASED
[2018-01-28 14:44] LABS: INR 1.35 (0.85-1.15); PARTIAL THROMBOPLASTIN TIME 39.7 SEC (26.3-35.5); PROTHROMBIN TIME 14.1 SEC (9.6-11.6)
[2018-01-28 16:23] VITALS: BP 108/64
[2018-01-28] MEDS: FUROSEMIDE 10 MG/ML 4ML VIAL IV SCH (17:39)
[2018-01-28] MEDS: INSULIN HUMULIN R 100 UNIT/ML 3ML SQ SCH ×2 (17:39→20:31)
[2018-01-28 17:40] LABS: APPEARANCE,URINE Clear (CLEAR); BILIRUBIN,URINE Small (NEGATIVE); COLOR,URINE Dark Yellow (YELLOW); GLUCOSE, URINE (UA) Negative (NEGATIVE); KETONES,URINE 15 mg/dL (NEGATIVE); LEUKOCYTE ESTERASE ,URINE Trace (NEGATIVE); NITRATE,URINE Negative (NEGATIVE); OCCULT BLOOD,URINE Negative (NEGATIVE); PH,URINE 6.5 (5.0-8.0); PROTEIN,URINE Negative (NEGATIVE); UROBILINOGEN,URINE >=8.0 mg/dL (0.2-1.0)
[2018-01-28] MEDS: POTASSIUM CHLORIDE 20 MEQ ERTAB PO SCH (17:40)
[2018-01-28] MEDS: LACTULOSE 20 GM/30 ML UDCUP PO SCH ×2 (17:40→22:24)
[2018-01-28 17:48] LABS: BACTERIA,URINE None Seen /HPF (None Seen); RBC,URINE None Seen /HPF (0-1); SQUAMOUS EPITHELIAL CELL,UR 0-2 /HPF (0-2); WBC,URINE 0-1 /HPF (0-1)
[2018-01-28] MEDS ORDERED: LACTULOSE 20 GM/30 ML UDCUP PR SCH (18:00)
[2018-01-28] MEDS ORDERED: LACT10SO9 PO (18:02)
[2018-01-28] MEDS ORDERED: INSLAN SQ (18:02)
[2018-01-28] MEDS ORDERED: TRAZ300T2 PO (18:02)
[2018-01-28] MEDS ORDERED: ALPR1TAB7 PO (18:02)
[2018-01-28] MEDS ORDERED: INSU100I3 SQ (18:02)
[2018-01-28 19:05] VITALS: BP 118/66
[2018-01-28] MEDS: TRAZODONE HCL 100 MG TABLET PO SCH (20:34)
[2018-01-28] MEDS: INSULIN GLARGINE 100 UNITS/ML 10 ML VIAL SQ SCH (20:36)
[2018-01-28] MEDS ORDERED: MORPHINE SULFATE 4 MG/1ML SYG ONE (21:57)
[2018-01-28] MEDS: MORPHINE SULFATE 2 MG/ML 1ML SYG IM PRN (22:23)
[2018-01-28 23:05] VITALS: BP 101/55
[2018-01-29 00:05] VITALS: BP 100/57
[2018-01-29 03:10] VITALS: BP 112/67
[2018-01-29] MEDS: FUROSEMIDE 10 MG/ML 4ML VIAL IV SCH ×2 (04:01→17:05)
[2018-01-29] MEDS: LACTULOSE 20 GM/30 ML UDCUP PO SCH ×4 (04:01→22:03)
[2018-01-29] MEDS ORDERED: MORPHINE SULFATE 4 MG/1ML SYG ONE ×2 (04:08→17:48)
[2018-01-29] MEDS: MORPHINE SULFATE 2 MG/ML 1ML SYG IM PRN (04:18)
[2018-01-29 05:41] LABS: BASOPHILS % (AUTO) 1.2 % (0.0-5.0); EOSINOPHILS % (AUTO) 2.2 % (0.0-8.0); HEMATOCRIT 26.4 % (42-54); LYMPHOCYTES % (AUTO) 36.2 % (21.0-51.0); MEAN CORPUSCULAR HEMOGLOBIN 30.6 pg (27.0-33.0); MEAN CORPUSCULAR HGB CONC 34.8 g/dL (32.0-36.0); MEAN CORPUSCULAR VOLUME 87.9 fL (79-99); MONOCYTES % (AUTO) 19.1 % (3.0-13.0); NEUTROPHILS % (AUTO) 41.3 % (40.0-77.0); PLATELET COUNT (AUTO) 34 K/uL (130-400); RED BLOOD CELL COUNT(AUTO) 3.01 MIL/uL (4.50-6.20); WHITE BLOOD COUNT (AUTO) 1.3 K/uL (4.8-10.8)
[2018-01-29 05:57] LABS: CREATININE 1.1 mg/dL (0.5-1.5); POTASSIUM 3.7 mmol/L (3.5-5.1)
[2018-01-29] MEDS: INSULIN HUMULIN R 100 UNIT/ML 3ML SQ SCH ×4 (06:26→21:00)
[2018-01-29] MEDS: INSULIN LISPRO 100 UNIT/ML 3ML SQ SCH ×3 (08:05→17:00)
[2018-01-29] MEDS: POTASSIUM CHLORIDE 20 MEQ ERTAB PO SCH (08:41)
[2018-01-29 09:12] VITALS: BP 125/66
[2018-01-29] MEDS: ALPRAZOLAM 1 MG TAB PO PRN ×2 (10:35→22:11)
[2018-01-29] MEDS: HYDROCODONE/ACETAMINOPHEN 10/325 MG TAB PO PRN ×4 (10:39→22:11)
[2018-01-29 12:43] VITALS: BP 133/76
[2018-01-29 16:47] VITALS: BP 98/62
[2018-01-29 19:00] VITALS: BP 160/54
[2018-01-29] MEDS: TRAZODONE HCL 100 MG TABLET PO SCH (20:07)
[2018-01-29] MEDS: INSULIN GLARGINE 100 UNITS/ML 10 ML VIAL SQ SCH (20:11)
[2018-01-30] MEDS ORDERED: MORPHINE SULFATE 4 MG/1ML SYG ONE ×4 (00:03→23:13)
[2018-01-30] MEDS: FUROSEMIDE 10 MG/ML 4ML VIAL IV SCH ×2 (03:52→17:08)
[2018-01-30] MEDS: HYDROCODONE/ACETAMINOPHEN 10/325 MG TAB PO PRN ×5 (03:53→21:23)
[2018-01-30] MEDS: LACTULOSE 20 GM/30 ML UDCUP PO SCH ×3 (03:53→17:23)
[2018-01-30 04:20] VITALS: BP 98/58
[2018-01-30 05:37] LABS: BASOPHILS % (AUTO) 0.5 % (0.0-5.0); HEMATOCRIT 26.5 % (42-54); MEAN CORPUSCULAR HEMOGLOBIN 31.2 pg (27.0-33.0); MEAN CORPUSCULAR HGB CONC 34.9 g/dL (32.0-36.0); MEAN CORPUSCULAR VOLUME 89.6 fL (79-99); MONOCYTES % (AUTO) 13.6 % (3.0-13.0); NEUTROPHILS % (AUTO) 50.9 % (40.0-77.0); PLATELET COUNT (AUTO) 37 K/uL (130-400); RED BLOOD CELL COUNT(AUTO) 2.96 MIL/uL (4.50-6.20); RED CELL DISTRIBUTION WIDTH 20.4 % (11.0-15.5); WHITE BLOOD COUNT (AUTO) 1.7 K/uL (4.8-10.8)
[2018-01-30] MEDS: INSULIN HUMULIN R 100 UNIT/ML 3ML SQ SCH ×4 (05:38→21:34)
[2018-01-30 05:48] LABS: POTASSIUM 3.6 mmol/L (3.5-5.1)
[2018-01-30 07:00] VITALS: BP 99/51
[2018-01-30] MEDS: INSULIN LISPRO 100 UNIT/ML 3ML SQ SCH (08:24)
[2018-01-30] MEDS: ALPRAZOLAM 1 MG TAB PO PRN ×2 (09:53→21:23)
[2018-01-30] MEDS: POTASSIUM CHLORIDE 20 MEQ ERTAB PO SCH (09:56)
[2018-01-30 11:00] VITALS: BP 118/47
[2018-01-30] MEDS ORDERED: GLUCAGON 1MG KIT 1 MG ML IM PRN (12:00)
[2018-01-30] MEDS ORDERED: DEXTROSE 50%-WATER 50 ML DISP.SYRIN IV PRN (12:00)
[2018-01-30 16:00] VITALS: BP 116/66
[2018-01-30] MEDS: LACTULOSE 20 GM/30 ML UDCUP PR SCH ×2 (16:00→23:22)
[2018-01-30 19:05] VITALS: BP 114/67
[2018-01-30] MEDS: TRAZODONE HCL 100 MG TABLET PO SCH (21:00)
[2018-01-30] MEDS: INSULIN GLARGINE 100 UNITS/ML 10 ML VIAL SQ SCH (21:38)
[2018-01-31 00:02] VITALS: BP 100/51
[2018-01-31] MEDS: HYDROCODONE/ACETAMINOPHEN 10/325 MG TAB PO PRN ×4 (01:22→18:46)
[2018-01-31 04:30] VITALS: BP 96/52
[2018-01-31] MEDS ORDERED: MORPHINE SULFATE 4 MG/1ML SYG ONE ×2 (05:44→20:23)
[2018-01-31] MEDS: FUROSEMIDE 10 MG/ML 4ML VIAL IV SCH ×2 (05:47→18:50)
[2018-01-31] MEDS: LACTULOSE 20 GM/30 ML UDCUP PR SCH ×3 (05:53→18:46)
[2018-01-31 06:20] LABS: BASOPHILS % (AUTO) 0.7 % (0.0-5.0); HEMATOCRIT 24.5 % (42-54); LYMPHOCYTES % (AUTO) 32.4 % (21.0-51.0); MEAN CORPUSCULAR HEMOGLOBIN 32.6 pg (27.0-33.0); MEAN CORPUSCULAR HGB CONC 36.5 g/dL (32.0-36.0); MEAN CORPUSCULAR VOLUME 89.4 fL (79-99); MONOCYTES % (AUTO) 11.7 % (3.0-13.0); NEUTROPHILS % (AUTO) 51.2 % (40.0-77.0); PLATELET COUNT (AUTO) 35 K/uL (130-400); RED BLOOD CELL COUNT(AUTO) 2.74 MIL/uL (4.50-6.20); RED CELL DISTRIBUTION WIDTH 21.5 % (11.0-15.5); WHITE BLOOD COUNT (AUTO) 1.5 K/uL (4.8-10.8)
[2018-01-31 07:00] VITALS: BP 119/84
[2018-01-31 07:24] LABS: CREATININE 1.1 mg/dL (0.5-1.5); POTASSIUM 3.6 mmol/L (3.5-5.1)
[2018-01-31] MEDS: INSULIN HUMULIN R 100 UNIT/ML 3ML SQ SCH ×4 (07:30→21:00)
[2018-01-31] MEDS: POTASSIUM CHLORIDE 20 MEQ ERTAB PO SCH (08:38)
[2018-01-31] MEDS: ALPRAZOLAM 1 MG TAB PO PRN ×2 (11:36→20:16)
[2018-01-31 11:46] VITALS: BP 122/59
[2018-01-31 15:00] VITALS: BP 94/42
[2018-01-31 20:46] VITALS: BP 97/62
[2018-01-31] MEDS: TRAZODONE HCL 100 MG TABLET PO SCH (21:00)
[2018-01-31] MEDS: INSULIN GLARGINE 100 UNITS/ML 10 ML VIAL SQ SCH (21:38)
[2018-02-01 00:54] VITALS: BP 110/63
[2018-02-01 04:28] VITALS: BP 107/58
[2018-02-01] MEDS: FUROSEMIDE 10 MG/ML 4ML VIAL IV SCH ×2 (05:01→17:28)
[2018-02-01] MEDS: HYDROCODONE/ACETAMINOPHEN 10/325 MG TAB PO PRN ×2 (05:07→08:25)
[2018-02-01 05:36] LABS: BASOPHILS % (AUTO) 0.6 % (0.0-5.0); EOSINOPHILS % (AUTO) 2.6 % (0.0-8.0); HEMATOCRIT 27.6 % (42-54); LYMPHOCYTES % (AUTO) 24.5 % (21.0-51.0); MEAN CORPUSCULAR HEMOGLOBIN 31.5 pg (27.0-33.0); MEAN CORPUSCULAR HGB CONC 34.7 g/dL (32.0-36.0); MEAN CORPUSCULAR VOLUME 90.6 fL (79-99); MONOCYTES % (AUTO) 13.5 % (3.0-13.0); NEUTROPHILS % (AUTO) 58.8 % (40.0-77.0); PLATELET COUNT (AUTO) 41 K/uL (130-400); RED BLOOD CELL COUNT(AUTO) 3.05 MIL/uL (4.50-6.20); RED CELL DISTRIBUTION WIDTH 21.4 % (11.0-15.5); WHITE BLOOD COUNT (AUTO) 2.2 K/uL (4.8-10.8)
[2018-02-01 05:54] LABS: CREATININE 1.1 mg/dL (0.5-1.5)
[2018-02-01] MEDS: LACTULOSE 20 GM/30 ML UDCUP PR SCH ×2 (07:01)
[2018-02-01] MEDS: INSULIN HUMULIN R 100 UNIT/ML 3ML SQ SCH ×4 (07:04→21:00)
[2018-02-01 08:00] VITALS: BP 129/76
[2018-02-01] MEDS: ALPRAZOLAM 1 MG TAB PO PRN (08:25)
[2018-02-01] MEDS: POTASSIUM CHLORIDE 20 MEQ ERTAB PO SCH (08:27)
[2018-02-01] MEDS ORDERED: LACTULOSE 20 GM/30 ML UDCUP PO PRN (08:30)
[2018-02-01 12:00] VITALS: BP 85/46
[2018-02-01] MEDS: RIFAXIMIN 550 MG TABLET PO SCH ×2 (12:24→21:30)
[2018-02-01] MEDS ORDERED: LACTULOSE 20 GM/30 ML UDCUP ONE (12:40)
[2018-02-01] MEDS: LACTULOSE 20 GM/30 ML UDCUP PO SCH ×2 (12:45→21:30)
[2018-02-01 16:00] VITALS: BP 109/58
[2018-02-01 20:34] VITALS: BP 124/57
[2018-02-01] MEDS: TRAZODONE HCL 100 MG TABLET PO SCH (21:39)
[2018-02-01] MEDS: INSULIN GLARGINE 100 UNITS/ML 10 ML VIAL SQ SCH (22:06)
[2018-02-02] MEDS: LACTULOSE 20 GM/30 ML UDCUP PO SCH ×4 (00:45→18:45)
[2018-02-02 04:33] VITALS: BP 113/79
[2018-02-02] MEDS: FUROSEMIDE 10 MG/ML 4ML VIAL IV SCH ×2 (05:40→16:29)
[2018-02-02 05:49] LABS: HEMATOCRIT 27.8 % (42-54); MEAN CORPUSCULAR HEMOGLOBIN 31.7 pg (27.0-33.0); MEAN CORPUSCULAR HGB CONC 34.8 g/dL (32.0-36.0); MEAN CORPUSCULAR VOLUME 90.9 fL (79-99); NUCLEATED RED BLOOD CELLS 0.2 % (0.0-0.19); PLATELET COUNT (AUTO) 44 K/uL (130-400); RED BLOOD CELL COUNT(AUTO) 3.06 MIL/uL (4.50-6.20); RED CELL DISTRIBUTION WIDTH 21.5 % (11.0-15.5); WHITE BLOOD COUNT (AUTO) 1.8 K/uL (4.8-10.8)
[2018-02-02 06:17] LABS: BAND NEUTROPHILS % (MANUAL) 10 % (0-2); EOSINOPHILS % (MANUAL) 2 % (1-6); LYMPHOCYTES % (MANUAL) 32 % (22-44); MAN.DIFF COMMENT-IMPRESSION MANUAL DIFFERENTIAL; MONOCYTES % (MANUAL) 10 % (2-9); PLATELET MORPHOLOGY COMMENT MARKED DEC; SEGMENTED NEUTROPHILS % 46 % (40-70)
[2018-02-02] MEDS: INSULIN HUMULIN R 100 UNIT/ML 3ML SQ SCH ×4 (07:30→21:00)
[2018-02-02] MEDS: RIFAXIMIN 550 MG TABLET PO SCH ×2 (08:37→21:00)
[2018-02-02] MEDS ORDERED: OLANZAPINE 10MG/ML 1ML VIAL IM PRN (09:45)
[2018-02-02 11:58] VITALS: BP 132/58
[2018-02-02] MEDS: POTASSIUM CHLORIDE 20 MEQ ERTAB PO SCH (16:30)
[2018-02-02] MEDS: INSULIN GLARGINE 100 UNITS/ML 10 ML VIAL SQ SCH (21:00)
[2018-02-02] MEDS: TRAZODONE HCL 100 MG TABLET PO SCH (21:00)
[2018-02-02 21:21] VITALS: BP 129/61
[2018-02-03] MEDS: LACTULOSE 20 GM/30 ML UDCUP PO SCH (00:45)
[2018-02-03] MEDS: FUROSEMIDE 10 MG/ML 4ML VIAL IV SCH (03:22)
== END 2018-02-03 04:04 | disposition left against medical advice (07) | DRG 720 ==
LOC: EDH 13:14 → EDHIP 13:15 → EEVIPCON 13:15 → 3AH 16:40
PROVIDERS: ADMIT Family Medicine; ATTEND Family Medicine
DX: A41.9 Sepsis, unspecified organism (principal); D61.818 Other pancytopenia; E72.20 Disorder of urea cycle metabolism, unspecified; E11.649 Type 2 diabetes mellitus with hypoglycemia without coma; K72.90 Hepatic failure, unspecified without coma; K92.2 Gastrointestinal hemorrhage, unspecified; E11.65 Type 2 diabetes mellitus with hyperglycemia; M79.7 Fibromyalgia; F19.90 Other psychoactive substance use, unspecified, uncomplicated; Z53.21 Procedure and treatment not carried out due to patient leaving prior to being seen by health care provider; K70.30 Alcoholic cirrhosis of liver without ascites; F31.9 Bipolar disorder, unspecified; F43.10 Post-traumatic stress disorder, unspecified; B19.20 Unspecified viral hepatitis C without hepatic coma; F60.7 Dependent personality disorder; F12.10 Cannabis abuse, uncomplicated; F14.10 Cocaine abuse, uncomplicated; Z90.49 Acquired absence of other specified parts of digestive tract; Z91.14 Patient's other noncompliance with medication regimen; Z95.5 Presence of coronary angioplasty implant and graft; Z91.19 Patient's noncompliance with other medical treatment and regimen; Z59.0 Homelessness; Z88.1 Allergy status to other antibiotic agents; Z88.8 Allergy status to other drugs, medicaments and biological substances
CPT/HCPCS: 36415; 71045; 74176; 80048; 80053; 81001; 82140; 82270; 82947; 82948; 83690; 85025; 85610; 85730; J1815; J1940; J2270

== ENCOUNTER 2018-02-03 14:52 | Observation (INO) | payer MEDICAID ==
[~2018-02-03] VITALS: Ht 172.7 cm; Wt 82.1 kg
[~2018-02-03 14:52] MED LIST changes: -ALPR-411 PO; +ALPR1TAB7 PO; -LACT PO; +LACT10SO9 PO; -PANT40TA PO
[2018-02-03 15:38] LABS: BASOPHILS % (AUTO) 0.4 % (0.0-5.0); EOSINOPHILS % (AUTO) 1.5 % (0.0-8.0); HEMATOCRIT 28.8 % (42-54); LYMPHOCYTES % (AUTO) 26.9 % (21.0-51.0); MEAN CORPUSCULAR HEMOGLOBIN 31.4 pg (27.0-33.0); MEAN CORPUSCULAR HGB CONC 35.1 g/dL (32.0-36.0); MEAN CORPUSCULAR VOLUME 89.6 fL (79-99); MONOCYTES % (AUTO) 15.3 % (3.0-13.0); NEUTROPHILS % (AUTO) 55.9 % (40.0-77.0); NUCLEATED RED BLOOD CELLS 0.1 % (0.0-0.19); PLATELET COUNT (AUTO) 48 K/uL (130-400); RED BLOOD CELL COUNT(AUTO) 3.22 MIL/uL (4.50-6.20); RED CELL DISTRIBUTION WIDTH 21.5 % (11.0-15.5); WHITE BLOOD COUNT (AUTO) 2.4 K/uL (4.8-10.8)
[2018-02-03] MEDS ORDERED: LACTULOSE 20 GM/30 ML UDCUP ONE (15:47)
[2018-02-03 15:49] LABS: CREATININE 1.1 mg/dL (0.5-1.5); POTASSIUM 3.9 mmol/L (3.5-5.1)
[2018-02-03 15:54] LABS: ALBUMIN 2.4 g/dL (3.5-5.0); BILIRUBIN,TOTAL 2.6 mg/dL (0.2-1.0); INR 1.23 (0.85-1.15); PROTHROMBIN TIME 12.9 SEC (9.6-11.6); TOTAL PROTEIN, SERUM 6.3 g/dL (6.0-8.3)
[2018-02-03 16:28] LABS: BAND NEUTROPHILS % (MANUAL) 2 % (0-2); BASOPHILS % (MANUAL) 1 % (0-2); LYMPHOCYTES % (MANUAL) 18 % (22-44); MONOCYTES % (MANUAL) 12 % (2-9); SEGMENTED NEUTROPHILS % 67 % (40-70)
[2018-02-03 16:29] LABS: MAN.DIFF COMMENT-IMPRESSION MANUAL DIFFERENTIAL
[2018-02-03 16:36] LABS: APPEARANCE,URINE Clear (CLEAR); BILIRUBIN,URINE Small (NEGATIVE); GLUCOSE, URINE (UA) >=1000 mg/dL (NEGATIVE); KETONES,URINE Trace mg/dL (NEGATIVE); LEUKOCYTE ESTERASE ,URINE Negative (NEGATIVE); NITRATE,URINE Positive (NEGATIVE); OCCULT BLOOD,URINE Negative (NEGATIVE); PH,URINE 5.5 (5.0-8.0); PROTEIN,URINE Negative (NEGATIVE); UROBILINOGEN,URINE >=8.0 mg/dL (0.2-1.0)
[2018-02-03 16:37] LABS: COLOR,URINE Dark Yellow (YELLOW)
[2018-02-03] MEDS ORDERED: CEFTRIAXONE SODIUM 1 GM ONE (16:40)
[2018-02-03] MEDS ORDERED: INSULIN HUMULIN R 100 UNIT/ML 3ML ONE (16:41)
[2018-02-03] MEDS ORDERED: DiphenhydrAMINE HCL 50 MG/ML VIAL ONE (16:53)
[2018-02-03 16:55] LABS: BACTERIA,URINE Rare /HPF (None Seen); RBC,URINE None Seen /HPF (0-1); SQUAMOUS EPITHELIAL CELL,UR None Seen /HPF (0-2); WBC,URINE 0-1 /HPF (0-1)
[2018-02-03 21:00] VITALS: BP 119/61
[2018-02-03] MEDS ORDERED: ACETAMINOPHEN 325 MG TAB PO PRN (22:00)
[2018-02-03] MEDS: LACTULOSE 20 GM/30 ML UDCUP PO SCH (22:38)
[2018-02-03 23:15] VITALS: BP 113/65
[2018-02-03] MEDS ORDERED: ALPRAZOLAM 1 MG TAB ONE (23:40)
[2018-02-04 03:45] VITALS: BP 125/73
[2018-02-04] MEDS: LACTULOSE 20 GM/30 ML UDCUP PO SCH ×3 (04:20→18:41)
[2018-02-04] MEDS ORDERED: DEXTROSE 50%-WATER 50 ML DISP.SYRIN IV PRN (06:00)
[2018-02-04] MEDS ORDERED: GLUCAGON 1MG KIT 1 MG ML IM PRN (06:00)
[2018-02-04 06:06] LABS: HEMATOCRIT 29.5 % (42-54); MEAN CORPUSCULAR HEMOGLOBIN 32.2 pg (27.0-33.0); MEAN CORPUSCULAR VOLUME 89.3 fL (79-99); NUCLEATED RED BLOOD CELLS 0.1 % (0.0-0.19); PLATELET COUNT (AUTO) 52 K/uL (130-400); RED BLOOD CELL COUNT(AUTO) 3.31 MIL/uL (4.50-6.20); WHITE BLOOD COUNT (AUTO) 3.1 K/uL (4.8-10.8)
[2018-02-04] MEDS: INSULIN HUMULIN R 100 UNIT/ML 3ML SQ SCH ×4 (06:11→20:46)
[2018-02-04 06:32] LABS: POTASSIUM 3.9 mmol/L (3.5-5.1)
[2018-02-04 07:30] VITALS: BP 136/65
[2018-02-04] MEDS: ALPRAZOLAM 1 MG TAB PO PRN ×2 (09:55→21:40)
[2018-02-04 11:00] VITALS: BP 122/99
[2018-02-04 16:00] VITALS: BP 125/68
[2018-02-04] MEDS ORDERED: LACTULOSE 20 GM/30 ML UDCUP ONE (17:47)
[2018-02-04] MEDS: LEVOFLOXACIN 750 MG TABLET PO SCH (18:36)
[2018-02-04 19:25] VITALS: BP 111/54
[2018-02-04] MEDS ORDERED: TRAZODONE HCL 100 MG TABLET PO SCH (21:00)
[2018-02-04 23:15] VITALS: BP 120/75
[2018-02-05] MEDS: LACTULOSE 20 GM/30 ML UDCUP PO SCH ×3 (00:06→11:24)
[2018-02-05 03:25] VITALS: BP 116/68
[2018-02-05] MEDS: INSULIN HUMULIN R 100 UNIT/ML 3ML SQ SCH ×2 (06:31→11:43)
[2018-02-05 07:30] VITALS: BP 126/76
[2018-02-05] MEDS: ALPRAZOLAM 1 MG TAB PO PRN (08:15)
[2018-02-05] MEDS: LEVOFLOXACIN 750 MG TABLET PO SCH (09:32)
[2018-02-05 11:00] VITALS: BP 105/61
== END 2018-02-05 14:56 | disposition home or self-care (01) ==
LOC: EDH 14:52 → EDHIP 14:53 → INTOOBSV 14:53 → 3CH 20:58
PROVIDERS: ADMIT Internal Medicine Pulmonary Disease; ATTEND Internal Medicine Pulmonary Disease
DX: K72.90 Hepatic failure, unspecified without coma (principal); E72.20 Disorder of urea cycle metabolism, unspecified; D61.818 Other pancytopenia; D68.9 Coagulation defect, unspecified; K74.60 Unspecified cirrhosis of liver; Z86.19 Personal history of other infectious and parasitic diseases; Z88.8 Allergy status to other drugs, medicaments and biological substances; Z79.899 Other long term (current) drug therapy
CPT/HCPCS: 36415 ×2; 80048; 80053; 81001; 82140 ×2; 82948 ×6; 85025; 85027; 85610; 85730; 87088; 93005; 96372 ×2; 99285; G0378 ×48; J0696; J1200; J1815 ×5

== ENCOUNTER 2018-02-10 16:10 | Emergency (ER) | payer MEDICAID ==
[2018-02-10 17:00] LABS: BASOPHILS % (AUTO) 0.6 % (0.0-5.0); EOSINOPHILS % (AUTO) 1.4 % (0.0-8.0); HEMATOCRIT 24.9 % (42-54); LYMPHOCYTES % (AUTO) 21.1 % (21.0-51.0); MEAN CORPUSCULAR HEMOGLOBIN 31.2 pg (27.0-33.0); MEAN CORPUSCULAR HGB CONC 34.9 g/dL (32.0-36.0); MEAN CORPUSCULAR VOLUME 89.3 fL (79-99); MONOCYTES % (AUTO) 13.5 % (3.0-13.0); NEUTROPHILS % (AUTO) 63.4 % (40.0-77.0); PLATELET COUNT (AUTO) 50 K/uL (130-400); RED BLOOD CELL COUNT(AUTO) 2.79 MIL/uL (4.50-6.20); RED CELL DISTRIBUTION WIDTH 22.5 % (11.0-15.5); WHITE BLOOD COUNT (AUTO) 2.6 K/uL (4.8-10.8)
[2018-02-10 17:10] LABS: POTASSIUM 3.8 mmol/L (3.5-5.1)
[2018-02-10 17:17] LABS: ALBUMIN 2.4 g/dL (3.5-5.0); BILIRUBIN,TOTAL 5.5 mg/dL (0.2-1.0); TOTAL PROTEIN, SERUM 6.2 g/dL (6.0-8.3)
[2018-02-10 17:19] LABS: B-TYPE NATRIURETIC PEPTIDE 30 pg/mL (0-100)
[2018-02-10 17:35] LABS: APPEARANCE,URINE Clear (CLEAR); BILIRUBIN,URINE Moderate (NEGATIVE); COLOR,URINE Orange (YELLOW); GLUCOSE, URINE (UA) Negative (NEGATIVE); KETONES,URINE Trace mg/dL (NEGATIVE); LEUKOCYTE ESTERASE ,URINE Small (NEGATIVE); NITRATE,URINE Positive (NEGATIVE); OCCULT BLOOD,URINE Small (NEGATIVE); PROTEIN,URINE Trace (NEGATIVE)
[2018-02-10 18:01] LABS: BAND NEUTROPHILS % (MANUAL) 4 % (0-2); EOSINOPHILS % (MANUAL) 2 % (1-6); LYMPHOCYTES % (MANUAL) 24 % (22-44); MONOCYTES % (MANUAL) 10 % (2-9); SEGMENTED NEUTROPHILS % 60 % (40-70)
[2018-02-10 18:02] LABS: MAN.DIFF COMMENT-IMPRESSION MANUAL DIFFERENTIAL
[2018-02-10 18:03] LABS: PLATELET MORPHOLOGY COMMENT MARKED DECREASED
[2018-02-10 18:09] LABS: BACTERIA,URINE Few /HPF (None Seen)
[2018-02-10 18:10] LABS: MUCUS,URINE Few LPF (None Seen); SQUAMOUS EPITHELIAL CELL,UR Few /HPF (0-2)
[2018-02-10] MEDS ORDERED: LIDOCAINE HCL 2% VISCOUS 15 ML UDCUP ONE (19:09)
[2018-02-10] MEDS ORDERED: MAGNESIUM HYDROXIDE 30 ML/UDCUP ONE (19:09)
[2018-02-10] MEDS ORDERED: TETANUS/DIPHTHERIA TOXOID [ADULT] 0.5 ML VIAL IM ONE (19:09)
[2018-02-10] MEDS ORDERED: LACTULOSE 20 GM/30 ML UDCUP ONE (19:10)
[2018-02-10] MEDS ORDERED: ONDANSETRON HCL 4 MG/2 ML VIAL ONE (19:11)
[2018-02-10] MEDS ORDERED: MORPHINE SULFATE 2 MG/ML 1ML SYG ONE (19:11)
== END 2018-02-10 19:39 | disposition home or self-care (01) ==
LOC: EDH 16:10
DX: L25.8 Unspecified contact dermatitis due to other agents (principal); T36.1X5A Adverse effect of cephalosporins and other beta-lactam antibiotics, initial encounter; E72.20 Disorder of urea cycle metabolism, unspecified; N30.00 Acute cystitis without hematuria; K29.00 Acute gastritis without bleeding; E11.9 Type 2 diabetes mellitus without complications; Y92.89 Other specified places as the place of occurrence of the external cause
CPT/HCPCS: 36415; 80053; 81001; 82140; 83690; 83880; 85025; 90471; 90714; 96374; 96375; 99284; J2405

== ENCOUNTER 2018-02-12 11:22 | Emergency (ER) | payer MEDICAID ==
[2018-02-12 12:28] LABS: APPEARANCE,URINE Clear (CLEAR); BILIRUBIN,URINE Moderate (NEGATIVE); COLOR,URINE Dark Yellow (YELLOW); GLUCOSE, URINE (UA) >=1000 mg/dL (NEGATIVE); KETONES,URINE Negative (NEGATIVE); LEUKOCYTE ESTERASE ,URINE Trace (NEGATIVE); NITRATE,URINE Positive (NEGATIVE); OCCULT BLOOD,URINE Small (NEGATIVE); PH,URINE 5.5 (5.0-8.0); PROTEIN,URINE Negative (NEGATIVE); UROBILINOGEN,URINE >=8.0 mg/dL (0.2-1.0)
[2018-02-12 12:37] LABS: AMPHET/METH SCREEN,URINE NEGATIVE (NEGATIVE); BARBITURATE SCREEN, URINE NEGATIVE (NEGATIVE); BENZODIAZEPINES SCREEN,URINE NEGATIVE (NEGATIVE); CANNABINOID SCREEN,URINE NEGATIVE (NEGATIVE); COCAINE SCREEN,URINE POSITIVE (NEGATIVE); OPIATE SCREEN,URINE NEGATIVE (NEGATIVE); PHENCYCLIDINE SCREEN,URINE NEGATIVE (NEGATIVE)
[2018-02-12 12:56] LABS: BASOPHILS % (AUTO) 0.7 % (0.0-5.0); EOSINOPHILS % (AUTO) 2.3 % (0.0-8.0); HEMATOCRIT 23.9 % (42-54); LYMPHOCYTES % (AUTO) 25.7 % (21.0-51.0); MEAN CORPUSCULAR HEMOGLOBIN 33.5 pg (27.0-33.0); MEAN CORPUSCULAR HGB CONC 37.3 g/dL (32.0-36.0); MEAN CORPUSCULAR VOLUME 89.9 fL (79-99); MONOCYTES % (AUTO) 13.2 % (3.0-13.0); NEUTROPHILS % (AUTO) 58.1 % (40.0-77.0); NUCLEATED RED BLOOD CELLS 0.1 % (0.0-0.19); PLATELET COUNT (AUTO) 41 K/uL (130-400); RED BLOOD CELL COUNT(AUTO) 2.66 MIL/uL (4.50-6.20); RED CELL DISTRIBUTION WIDTH 23.1 % (11.0-15.5); WHITE BLOOD COUNT (AUTO) 1.8 K/uL (4.8-10.8)
[2018-02-12 13:02] LABS: BACTERIA,URINE Rare /HPF (None Seen); SQUAMOUS EPITHELIAL CELL,UR Rare /HPF (0-2); WBC,URINE None Seen /HPF (0-1)
[2018-02-12 13:04] LABS: POTASSIUM 4.1 mmol/L (3.5-5.1)
[2018-02-12 13:09] LABS: ALBUMIN 2.3 g/dL (3.5-5.0); BILIRUBIN,TOTAL 4.6 mg/dL (0.2-1.0)
== END 2018-02-12 13:50 | disposition home or self-care (01) ==
LOC: EDH 11:22
DX: F14.10 Cocaine abuse, uncomplicated (principal); K74.60 Unspecified cirrhosis of liver; D64.9 Anemia, unspecified; E11.9 Type 2 diabetes mellitus without complications; B19.20 Unspecified viral hepatitis C without hepatic coma; F20.9 Schizophrenia, unspecified; F31.9 Bipolar disorder, unspecified; Z88.1 Allergy status to other antibiotic agents; Z90.49 Acquired absence of other specified parts of digestive tract; Z98.890 Other specified postprocedural states
CPT/HCPCS: 36415; 80053; 80305; 81001; 82140; 84484; 85025; 93005

== ENCOUNTER 2018-05-17 10:46 | Inpatient (IN) | payer MEDICAID ==
[~2018-05-17] VITALS: Ht 175.3 cm; Wt 69.4 kg
[2018-05-17 11:54] LABS: BASOPHILS % (AUTO) 1.1 % (0.0-5.0); EOSINOPHILS % (AUTO) 1.1 % (0.0-8.0); HEMATOCRIT 26.4 % (42-54); MEAN CORPUSCULAR HEMOGLOBIN 35.7 pg (27.0-33.0); MEAN CORPUSCULAR HGB CONC 36.2 g/dL (32.0-36.0); MEAN CORPUSCULAR VOLUME 98.8 fL (79-99); MONOCYTES % (AUTO) 8.9 % (3.0-13.0); NEUTROPHILS % (AUTO) 73.9 % (40.0-77.0); NUCLEATED RED BLOOD CELLS 0.1 % (0.0-0.19); PLATELET COUNT (AUTO) 42 K/uL (130-400); RED BLOOD CELL COUNT(AUTO) 2.68 MIL/uL (4.50-6.20); RED CELL DISTRIBUTION WIDTH 17.2 % (11.0-15.5)
[2018-05-17 12:05] LABS: CREATININE 0.8 mg/dL (0.5-1.5); POTASSIUM 3.9 mmol/L (3.5-5.1)
[2018-05-17 12:11] LABS: BILIRUBIN,TOTAL 5.8 mg/dL (0.2-1.0); TOTAL PROTEIN, SERUM 6.7 g/dL (6.0-8.3)
[2018-05-17 12:22] LABS: B-TYPE NATRIURETIC PEPTIDE 1100 pg/mL (0-100)
[2018-05-17 12:52] LABS: EOSINOPHILS % (MANUAL) 2 % (1-6); LYMPHOCYTES % (MANUAL) 7 % (22-44); MAN.DIFF COMMENT-IMPRESSION MANUAL DIFFERENTIAL; MONOCYTES % (MANUAL) 3 % (2-9); SEGMENTED NEUTROPHILS % 88 % (40-70)
[2018-05-17] MEDS ORDERED: MORPHINE SULFATE 4 MG/1ML SYG ONE ×2 (12:56→16:09)
[2018-05-17] MEDS ORDERED: ONDANSETRON HCL 4 MG/2 ML VIAL ONE (12:56)
[2018-05-17] MEDS ORDERED: ONDANSETRON HCL 4 MG/2 ML VIAL IV PRN (15:45)
[2018-05-17] MEDS: LEVOFLOXACIN 500 MG/D5W 100 ML 100 ML IV SCH (15:45)
[2018-05-17] MEDS ORDERED: LEVOFLOXACIN 500 MG/D5W 100 ML 100 ML ONE (16:09)
[2018-05-17 18:40] VITALS: BP 128/69
[2018-05-17] MEDS ORDERED: LACTULOSE 20 GM/30 ML UDCUP PO SCH (21:00)
[2018-05-17] MEDS: FUROSEMIDE 10 MG/ML 4ML VIAL IVP SCH (21:47)
[2018-05-17] MEDS: SPIRONOLACTONE 25 MG TAB PO SCH (21:48)
[2018-05-17] MEDS: ALBUMIN (HUMAN) 25% 50 ML IV SCH (23:22)
[2018-05-17 23:44] LABS: AMPHET/METH SCREEN,URINE NEGATIVE (NEGATIVE); BARBITURATE SCREEN, URINE NEGATIVE (NEGATIVE); BENZODIAZEPINES SCREEN,URINE POSITIVE (NEGATIVE); CANNABINOID SCREEN,URINE NEGATIVE (NEGATIVE); COCAINE SCREEN,URINE POSITIVE (NEGATIVE); OPIATE SCREEN,URINE POSITIVE (NEGATIVE); PHENCYCLIDINE SCREEN,URINE NEGATIVE (NEGATIVE)
[2018-05-18] VITALS (7 sets, daily range): BP systolic 100–123; BP diastolic 49–68
[2018-05-18 05:05] LABS: BASOPHILS % (AUTO) 0.5 % (0.0-5.0); EOSINOPHILS % (AUTO) 2.9 % (0.0-8.0); HEMATOCRIT 23.4 % (42-54); LYMPHOCYTES % (AUTO) 25.6 % (21.0-51.0); MEAN CORPUSCULAR HEMOGLOBIN 35.4 pg (27.0-33.0); MEAN CORPUSCULAR HGB CONC 36.4 g/dL (32.0-36.0); MEAN CORPUSCULAR VOLUME 97.4 fL (79-99); MONOCYTES % (AUTO) 13.2 % (3.0-13.0); NEUTROPHILS % (AUTO) 57.8 % (40.0-77.0); NUCLEATED RED BLOOD CELLS 0.1 % (0.0-0.19); PLATELET COUNT (AUTO) 34 K/uL (130-400); RED CELL DISTRIBUTION WIDTH 16.8 % (11.0-15.5); WHITE BLOOD COUNT (AUTO) 2.7 K/uL (4.8-10.8)
[2018-05-18 05:19] LABS: ALBUMIN 2.1 g/dL (3.5-5.0); BILIRUBIN,TOTAL 4.5 mg/dL (0.2-1.0); CREATININE 0.9 mg/dL (0.5-1.5); TOTAL PROTEIN, SERUM 6.3 g/dL (6.0-8.3)
[2018-05-18 05:22] LABS: INR 1.37 (0.85-1.15); PARTIAL THROMBOPLASTIN TIME 45.9 SEC (26.3-35.5); PROTHROMBIN TIME 14.3 SEC (9.6-11.6)
[2018-05-18 05:27] LABS: POTASSIUM 3.6 mmol/L (3.5-5.1)
[2018-05-18] MEDS: INSULIN HUMULIN R 100 UNIT/ML 3ML SQ SCH ×4 (06:44→21:00)
[2018-05-18] MEDS ORDERED: RIFAXIMIN 200 MG TABLET PO SCH (09:00)
[2018-05-18] MEDS: RIFAXIMIN 550 MG TABLET PO SCH ×2 (09:58→22:20)
[2018-05-18] MEDS: SPIRONOLACTONE 25 MG TAB PO SCH ×2 (09:58→22:20)
[2018-05-18] MEDS: FUROSEMIDE 10 MG/ML 4ML VIAL IVP SCH ×2 (09:58→22:20)
[2018-05-18] MEDS: ALBUMIN (HUMAN) 25% 50 ML IV SCH ×2 (09:58→22:19)
[2018-05-18] MEDS: LACTULOSE 20 GM/30 ML UDCUP PO SCH ×2 (12:13→16:56)
[2018-05-18] MEDS: LEVOFLOXACIN 500 MG/D5W 100 ML 100 ML IV SCH (15:15)
[2018-05-18] MEDS: ACETAMINOPHEN 325 MG TAB PO PRN (19:26)
[2018-05-18] MEDS: ZOLPIDEM TARTRATE 5 MG TAB PO PRN (22:31)
[2018-05-19 03:40] VITALS: BP 116/59
[2018-05-19 05:27] LABS: HEMATOCRIT 24.5 % (42-54); MEAN CORPUSCULAR HEMOGLOBIN 36.1 pg (27.0-33.0); MEAN CORPUSCULAR HGB CONC 36.4 g/dL (32.0-36.0); MEAN CORPUSCULAR VOLUME 99.2 fL (79-99); NUCLEATED RED BLOOD CELLS 0.1 % (0.0-0.19); PLATELET COUNT (AUTO) 47 K/uL (130-400); RED BLOOD CELL COUNT(AUTO) 2.47 MIL/uL (4.50-6.20); RED CELL DISTRIBUTION WIDTH 17.8 % (11.0-15.5); WHITE BLOOD COUNT (AUTO) 3.2 K/uL (4.8-10.8)
[2018-05-19 05:36] LABS: CREATININE 0.8 mg/dL (0.5-1.5); POTASSIUM 3.6 mmol/L (3.5-5.1)
[2018-05-19] MEDS: INSULIN HUMULIN R 100 UNIT/ML 3ML SQ SCH ×4 (06:14→21:00)
[2018-05-19] MEDS: LACTULOSE 20 GM/30 ML UDCUP PO SCH ×5 (07:54→21:19)
[2018-05-19 08:02] VITALS: BP 93/45
[2018-05-19] MEDS: RIFAXIMIN 550 MG TABLET PO SCH ×2 (09:08→21:18)
[2018-05-19] MEDS: SPIRONOLACTONE 25 MG TAB PO SCH ×2 (09:08→21:18)
[2018-05-19] MEDS: FUROSEMIDE 10 MG/ML 4ML VIAL IVP SCH ×2 (09:08→21:18)
[2018-05-19] MEDS: ACETAMINOPHEN 325 MG TAB PO PRN ×2 (09:19→19:33)
[2018-05-19 11:44] VITALS: BP 104/49
[2018-05-19] MEDS: LEVOFLOXACIN 500 MG/D5W 100 ML 100 ML IV SCH (16:11)
[2018-05-19 16:48] VITALS: BP 101/56
[2018-05-19 19:00] VITALS: BP 109/63
[2018-05-19 23:00] VITALS: BP 118/66
[2018-05-20 03:00] VITALS: BP 137/69
[2018-05-20 04:52] LABS: HEMATOCRIT 27.1 % (42-54); MEAN CORPUSCULAR HGB CONC 34.8 g/dL (32.0-36.0); MEAN CORPUSCULAR VOLUME 100.5 fL (79-99); NUCLEATED RED BLOOD CELLS 0.2 % (0.0-0.19); PLATELET COUNT (AUTO) 47 K/uL (130-400); RED BLOOD CELL COUNT(AUTO) 2.69 MIL/uL (4.50-6.20); RED CELL DISTRIBUTION WIDTH 18.9 % (11.0-15.5); WHITE BLOOD COUNT (AUTO) 3.8 K/uL (4.8-10.8)
[2018-05-20 05:10] LABS: POTASSIUM 4.1 mmol/L (3.5-5.1)
[2018-05-20] MEDS: INSULIN HUMULIN R 100 UNIT/ML 3ML SQ SCH ×4 (07:30→21:20)
[2018-05-20 08:00] VITALS: BP 125/63
[2018-05-20] MEDS: RIFAXIMIN 550 MG TABLET PO SCH ×2 (09:00→21:11)
[2018-05-20] MEDS ORDERED: MEROPENEM 1 GM VIAL IVP SCH (10:15)
[2018-05-20] MEDS: LACTULOSE 20 GM/30 ML UDCUP PO SCH ×4 (10:43→21:10)
[2018-05-20] MEDS: FUROSEMIDE 10 MG/ML 4ML VIAL IVP SCH ×2 (10:44→21:11)
[2018-05-20] MEDS: SPIRONOLACTONE 25 MG TAB PO SCH ×2 (10:44→21:11)
[2018-05-20] MEDS: ALPRAZOLAM 0.5 MG TABLET PO PRN ×2 (10:55→23:37)
[2018-05-20] MEDS: ACETAMINOPHEN 325 MG TAB PO PRN (10:56)
[2018-05-20 12:00] VITALS: BP 100/72
[2018-05-20] MEDS ORDERED: MORPHINE SULFATE 2 MG/ML 1ML SYG IVP ONE (15:00)
[2018-05-20 16:00] VITALS: BP 100/64
[2018-05-20] MEDS ORDERED: MORPHINE SULFATE 2 MG/ML 1ML SYG ONE (16:44)
[2018-05-20] MEDS: ZOSYN 3.375GM+NS 50ML 50 ML IV SCH ×2 (16:49→23:19)
[2018-05-20 20:00] VITALS: BP 111/53
[2018-05-20] MEDS ORDERED: MORPHINE SULFATE 2 MG/ML 1ML SYG IV ONE (21:00)
[2018-05-20] MEDS: ZOLPIDEM TARTRATE 5 MG TAB PO PRN (23:37)
[2018-05-21] VITALS (11 sets, daily range): BP systolic 84–203; BP diastolic 36–109
[2018-05-21 04:56] LABS: BASOPHILS % (AUTO) 0.7 % (0.0-5.0); EOSINOPHILS % (AUTO) 3.1 % (0.0-8.0); HEMATOCRIT 26.2 % (42-54); LYMPHOCYTES % (AUTO) 25.3 % (21.0-51.0); MEAN CORPUSCULAR HEMOGLOBIN 35.9 pg (27.0-33.0); MEAN CORPUSCULAR HGB CONC 35.3 g/dL (32.0-36.0); MEAN CORPUSCULAR VOLUME 101.6 fL (79-99); MONOCYTES % (AUTO) 11.2 % (3.0-13.0); NEUTROPHILS % (AUTO) 59.7 % (40.0-77.0); PLATELET COUNT (AUTO) 48 K/uL (130-400); RED BLOOD CELL COUNT(AUTO) 2.58 MIL/uL (4.50-6.20); RED CELL DISTRIBUTION WIDTH 18.2 % (11.0-15.5); WHITE BLOOD COUNT (AUTO) 3.3 K/uL (4.8-10.8)
[2018-05-21 05:18] LABS: ALBUMIN 2.1 g/dL (3.5-5.0); BILIRUBIN,DIRECT 1.4 mg/dL (0.0-0.3); BILIRUBIN,TOTAL 3.2 mg/dL (0.2-1.0); CREATININE 1.1 mg/dL (0.5-1.5); POTASSIUM 4.3 mmol/L (3.5-5.1); TOTAL PROTEIN, SERUM 6.3 g/dL (6.0-8.3)
[2018-05-21] MEDS: ZOSYN 3.375GM+NS 50ML 50 ML IV SCH ×3 (06:28→23:45)
[2018-05-21] MEDS: INSULIN HUMULIN R 100 UNIT/ML 3ML SQ SCH ×4 (06:29→21:04)
[2018-05-21] MEDS: FUROSEMIDE 10 MG/ML 4ML VIAL IVP SCH ×2 (10:46→20:54)
[2018-05-21] MEDS: LACTULOSE 20 GM/30 ML UDCUP PO SCH ×3 (10:46→20:53)
[2018-05-21] MEDS: SPIRONOLACTONE 25 MG TAB PO SCH ×2 (10:46→20:54)
[2018-05-21] MEDS: ALPRAZOLAM 0.5 MG TABLET PO PRN ×2 (12:49→21:09)
[2018-05-21] MEDS: RIFAXIMIN 550 MG TABLET PO SCH ×2 (13:04→21:00)
[2018-05-21] MEDS ORDERED: MORPHINE SULFATE 2 MG/ML 1ML SYG IVP ONE (14:45)
[2018-05-21] MEDS ORDERED: PHARMACY COMMUNICATION MISC SCH (16:45)
[2018-05-21] MEDS ORDERED: MORPHINE SULFATE 2 MG/ML 1ML SYG ONE (17:05)
[2018-05-21] MEDS ORDERED: MORPHINE SULFATE 2 MG/ML 1ML SYG IVP SCH (17:50)
[2018-05-21] MEDS: HYDROCODONE/ACETAMINOPHEN 5/325 MG TAB PO PRN (21:09)
[2018-05-21] MEDS: ZOLPIDEM TARTRATE 5 MG TAB PO PRN (22:15)
[2018-05-22] MEDS: HYDROCODONE/ACETAMINOPHEN 5/325 MG TAB PO PRN ×4 (04:03→23:14)
[2018-05-22 04:17] VITALS: BP 117/56
[2018-05-22] MEDS: ZOSYN 3.375GM+NS 50ML 50 ML IV SCH ×3 (06:46→21:21)
[2018-05-22] MEDS: INSULIN HUMULIN R 100 UNIT/ML 3ML SQ SCH ×4 (06:50→21:16)
[2018-05-22 07:00] VITALS: BP 118/55
[2018-05-22] MEDS: LACTULOSE 20 GM/30 ML UDCUP PO SCH ×4 (08:43→21:20)
[2018-05-22] MEDS: RIFAXIMIN 550 MG TABLET PO SCH ×2 (08:43→21:21)
[2018-05-22] MEDS: FUROSEMIDE 10 MG/ML 4ML VIAL IVP SCH ×2 (08:44→21:20)
[2018-05-22] MEDS: SPIRONOLACTONE 25 MG TAB PO SCH ×2 (08:44→21:21)
[2018-05-22 09:21] LABS: BASOPHILS % (AUTO) 0.5 % (0.0-5.0); EOSINOPHILS % (AUTO) 4.7 % (0.0-8.0); HEMATOCRIT 28.7 % (42-54); LYMPHOCYTES % (AUTO) 24.8 % (21.0-51.0); MEAN CORPUSCULAR HEMOGLOBIN 36.2 pg (27.0-33.0); MEAN CORPUSCULAR HGB CONC 36.6 g/dL (32.0-36.0); MEAN CORPUSCULAR VOLUME 98.9 fL (79-99); MONOCYTES % (AUTO) 9.3 % (3.0-13.0); NEUTROPHILS % (AUTO) 60.7 % (40.0-77.0); NUCLEATED RED BLOOD CELLS 0.1 % (0.0-0.19); PLATELET COUNT (AUTO) 52 K/uL (130-400); RED CELL DISTRIBUTION WIDTH 17.9 % (11.0-15.5); WHITE BLOOD COUNT (AUTO) 4.4 K/uL (4.8-10.8)
[2018-05-22 09:56] LABS: POTASSIUM 4.5 mmol/L (3.5-5.1)
[2018-05-22 11:00] VITALS: BP 138/50
[2018-05-22] MEDS: ALPRAZOLAM 0.5 MG TABLET PO PRN ×2 (15:12→23:20)
[2018-05-22 16:00] VITALS: BP 122/61
[2018-05-22 20:00] VITALS: BP 135/68
[2018-05-23] VITALS: BP 136/70
[2018-05-23 04:00] VITALS: BP 136/77
[2018-05-23 05:07] LABS: BASOPHILS % (AUTO) 0.5 % (0.0-5.0); EOSINOPHILS % (AUTO) 3.8 % (0.0-8.0); HEMATOCRIT 31.1 % (42-54); MEAN CORPUSCULAR HEMOGLOBIN 36.5 pg (27.0-33.0); MEAN CORPUSCULAR HGB CONC 37.4 g/dL (32.0-36.0); MEAN CORPUSCULAR VOLUME 97.5 fL (79-99); MONOCYTES % (AUTO) 7.8 % (3.0-13.0); NEUTROPHILS % (AUTO) 63.9 % (40.0-77.0); PLATELET COUNT (AUTO) 67 K/uL (130-400); RED BLOOD CELL COUNT(AUTO) 3.19 MIL/uL (4.50-6.20); WHITE BLOOD COUNT (AUTO) 5.1 K/uL (4.8-10.8)
[2018-05-23 05:16] LABS: CREATININE 1.2 mg/dL (0.5-1.5); POTASSIUM 4.5 mmol/L (3.5-5.1)
[2018-05-23] MEDS: ZOSYN 3.375GM+NS 50ML 50 ML IV SCH ×3 (05:58→21:49)
[2018-05-23] MEDS: HYDROCODONE/ACETAMINOPHEN 5/325 MG TAB PO PRN ×3 (05:59→21:43)
[2018-05-23] MEDS: INSULIN HUMULIN R 100 UNIT/ML 3ML SQ SCH ×4 (06:04→21:41)
[2018-05-23 07:30] VITALS: BP 142/79
[2018-05-23] MEDS: LACTULOSE 20 GM/30 ML UDCUP PO SCH ×4 (09:33→21:42)
[2018-05-23] MEDS: SPIRONOLACTONE 25 MG TAB PO SCH ×2 (09:33→21:43)
[2018-05-23] MEDS: FUROSEMIDE 10 MG/ML 4ML VIAL IVP SCH ×2 (09:33→21:43)
[2018-05-23] MEDS: RIFAXIMIN 550 MG TABLET PO SCH ×2 (09:33→21:43)
[2018-05-23 11:00] VITALS: BP 123/58
[2018-05-23 16:00] VITALS: BP 141/73
[2018-05-23 20:00] VITALS: BP 148/74
[2018-05-23] MEDS: ALPRAZOLAM 0.5 MG TABLET PO PRN (21:49)
[2018-05-23] MEDS: ZOLPIDEM TARTRATE 5 MG TAB PO PRN (23:29)
[2018-05-24] VITALS (7 sets, daily range): BP systolic 138–155; BP diastolic 60–82
[2018-05-24] MEDS: ZOSYN 3.375GM+NS 50ML 50 ML IV SCH ×3 (04:59→22:44)
[2018-05-24 05:02] LABS: BASOPHILS % (AUTO) 0.3 % (0.0-5.0); EOSINOPHILS % (AUTO) 1.3 % (0.0-8.0); HEMATOCRIT 33.9 % (42-54); LYMPHOCYTES % (AUTO) 20.3 % (21.0-51.0); MEAN CORPUSCULAR HEMOGLOBIN 35.2 pg (27.0-33.0); MEAN CORPUSCULAR HGB CONC 36.2 g/dL (32.0-36.0); MEAN CORPUSCULAR VOLUME 97.1 fL (79-99); MONOCYTES % (AUTO) 7.5 % (3.0-13.0); NEUTROPHILS % (AUTO) 70.6 % (40.0-77.0); NUCLEATED RED BLOOD CELLS 0.5 % (0.0-0.19); PLATELET COUNT (AUTO) 69 K/uL (130-400); RED BLOOD CELL COUNT(AUTO) 3.49 MIL/uL (4.50-6.20); RED CELL DISTRIBUTION WIDTH 18.3 % (11.0-15.5); WHITE BLOOD COUNT (AUTO) 7.9 K/uL (4.8-10.8)
[2018-05-24 05:13] LABS: ALBUMIN 2.7 g/dL (3.5-5.0); BILIRUBIN,DIRECT 3.6 mg/dL (0.0-0.3); BILIRUBIN,TOTAL 8.9 mg/dL (0.2-1.0); CREATININE 1.3 mg/dL (0.5-1.5); CRP QUANTITATIVE 9.4 mg/L (0.00-9.0); POTASSIUM 4.8 mmol/L (3.5-5.1); TOTAL PROTEIN, SERUM 8.4 g/dL (6.0-8.3)
[2018-05-24] MEDS: INSULIN HUMULIN R 100 UNIT/ML 3ML SQ SCH ×4 (06:28→22:17)
[2018-05-24] MEDS: MEGESTROL 400 MG/10 ML UDCUP PO SCH (10:11)
[2018-05-24] MEDS: SPIRONOLACTONE 25 MG TAB PO SCH ×2 (10:11→20:42)
[2018-05-24] MEDS: FUROSEMIDE 10 MG/ML 4ML VIAL IVP SCH ×2 (10:12→20:42)
[2018-05-24] MEDS: RIFAXIMIN 550 MG TABLET PO SCH ×2 (10:12→20:42)
[2018-05-24] MEDS: ALPRAZOLAM 0.5 MG TABLET PO PRN (10:24)
[2018-05-24] MEDS: HYDROCODONE/ACETAMINOPHEN 5/325 MG TAB PO PRN ×2 (10:24→18:52)
[2018-05-24] MEDS: LACTULOSE 20 GM/30 ML UDCUP PO SCH ×4 (13:06→20:41)
[2018-05-24] MEDS: ACETAMINOPHEN 325 MG TAB PO PRN (20:48)
[2018-05-24] MEDS: ZOLPIDEM TARTRATE 5 MG TAB PO PRN (23:44)
[2018-05-25 03:50] VITALS: BP 127/56
[2018-05-25] MEDS: HYDROCODONE/ACETAMINOPHEN 5/325 MG TAB PO PRN ×4 (04:15→21:05)
[2018-05-25 05:25] LABS: CREATININE 1.3 mg/dL (0.5-1.5); POTASSIUM 5.2 mmol/L (3.5-5.1)
[2018-05-25 05:49] LABS: BASOPHILS % (AUTO) 0.3 % (0.0-5.0); EOSINOPHILS % (AUTO) 1.6 % (0.0-8.0); HEMATOCRIT 27.3 % (42-54); LYMPHOCYTES % (AUTO) 21.2 % (21.0-51.0); MEAN CORPUSCULAR HEMOGLOBIN 35.4 pg (27.0-33.0); MEAN CORPUSCULAR HGB CONC 36.8 g/dL (32.0-36.0); MEAN CORPUSCULAR VOLUME 96.2 fL (79-99); NEUTROPHILS % (AUTO) 63.9 % (40.0-77.0); NUCLEATED RED BLOOD CELLS 0.2 % (0.0-0.19); PLATELET COUNT (AUTO) 64 K/uL (130-400); RED BLOOD CELL COUNT(AUTO) 2.84 MIL/uL (4.50-6.20); RED CELL DISTRIBUTION WIDTH 18.3 % (11.0-15.5); WHITE BLOOD COUNT (AUTO) 6.5 K/uL (4.8-10.8)
[2018-05-25] MEDS: INSULIN HUMULIN R 100 UNIT/ML 3ML SQ SCH ×4 (06:26→21:11)
[2018-05-25] MEDS: ZOSYN 3.375GM+NS 50ML 50 ML IV SCH ×3 (06:36→22:52)
[2018-05-25 08:09] VITALS: BP 127/61
[2018-05-25] MEDS: LACTULOSE 20 GM/30 ML UDCUP PO SCH ×4 (09:47→21:06)
[2018-05-25] MEDS: SPIRONOLACTONE 25 MG TAB PO SCH ×2 (09:47→21:06)
[2018-05-25] MEDS: RIFAXIMIN 550 MG TABLET PO SCH ×2 (09:47→21:05)
[2018-05-25] MEDS: MEGESTROL 400 MG/10 ML UDCUP PO SCH (09:47)
[2018-05-25] MEDS: FUROSEMIDE 10 MG/ML 4ML VIAL IVP SCH ×2 (09:48→21:06)
[2018-05-25] MEDS ORDERED: TROLAMINE SALICYLATE CREAM 85 GM TUBE TP PRN (10:00)
[2018-05-25 12:06] VITALS: BP 127/69
[2018-05-25 16:21] VITALS: BP 122/71
[2018-05-25] MEDS: ALPRAZOLAM 0.5 MG TABLET PO PRN (19:19)
[2018-05-25 20:32] VITALS: BP 128/56
[2018-05-25] MEDS: METOPROLOL TARTRATE 25 MG TAB PO SCH (21:05)
[2018-05-26 04:00] VITALS: BP 120/63
[2018-05-26 04:58] LABS: BASOPHILS % (AUTO) 0.6 % (0.0-5.0); EOSINOPHILS % (AUTO) 1.3 % (0.0-8.0); HEMATOCRIT 25.3 % (42-54); LYMPHOCYTES % (AUTO) 21.1 % (21.0-51.0); MEAN CORPUSCULAR HEMOGLOBIN 35.4 pg (27.0-33.0); MEAN CORPUSCULAR HGB CONC 36.9 g/dL (32.0-36.0); MEAN CORPUSCULAR VOLUME 96.1 fL (79-99); MONOCYTES % (AUTO) 14.9 % (3.0-13.0); NEUTROPHILS % (AUTO) 62.1 % (40.0-77.0); NUCLEATED RED BLOOD CELLS 0.1 % (0.0-0.19); PLATELET COUNT (AUTO) 73 K/uL (130-400); RED BLOOD CELL COUNT(AUTO) 2.63 MIL/uL (4.50-6.20); WHITE BLOOD COUNT (AUTO) 5.6 K/uL (4.8-10.8)
[2018-05-26] MEDS: HYDROCODONE/ACETAMINOPHEN 5/325 MG TAB PO PRN (05:00)
[2018-05-26 05:07] LABS: CREATININE 1.6 mg/dL (0.5-1.5); POTASSIUM 5.4 mmol/L (3.5-5.1)
[2018-05-26] MEDS: INSULIN HUMULIN R 100 UNIT/ML 3ML SQ SCH ×4 (06:34→22:27)
[2018-05-26] MEDS: ZOSYN 3.375GM+NS 50ML 50 ML IV SCH ×3 (06:38→22:19)
[2018-05-26 07:00] VITALS: BP 117/55
[2018-05-26] MEDS: RIFAXIMIN 550 MG TABLET PO SCH ×2 (08:19→22:17)
[2018-05-26] MEDS: LACTULOSE 20 GM/30 ML UDCUP PO SCH ×4 (08:19→22:18)
[2018-05-26] MEDS: FUROSEMIDE 10 MG/ML 4ML VIAL IVP SCH ×2 (08:20→22:18)
[2018-05-26] MEDS: ALPRAZOLAM 0.5 MG TABLET PO PRN (08:20)
[2018-05-26] MEDS: METOPROLOL TARTRATE 25 MG TAB PO SCH ×2 (08:20→22:18)
[2018-05-26] MEDS: MEGESTROL 400 MG/10 ML UDCUP PO SCH (08:20)
[2018-05-26] MEDS: SPIRONOLACTONE 25 MG TAB PO SCH ×2 (08:20→22:18)
[2018-05-26] MEDS: ACETAMINOPHEN 325 MG TAB PO PRN (08:21)
[2018-05-26] MEDS ORDERED: MEGESTROL 400 MG/10 ML UDCUP PO SCH (09:00)
[2018-05-26] MEDS ORDERED: SODIUM POLYSTYRENE SULFONATE 15 GM/60 ML ML PO SCH (09:30)
[2018-05-26 11:00] VITALS: BP 130/64
[2018-05-26 16:00] VITALS: BP 109/54
[2018-05-26] MEDS ORDERED: HYDROCODONE/ACETAMINOPHEN 5/325 MG TAB PO ONE (17:00)
[2018-05-26 20:00] VITALS: BP 102/50
[2018-05-27 00:07] VITALS: BP 107/52
[2018-05-27] MEDS: ZOLPIDEM TARTRATE 5 MG TAB PO PRN (00:07)
[2018-05-27] MEDS: ALPRAZOLAM 0.5 MG TABLET PO PRN (00:07)
[2018-05-27 04:06] VITALS: BP 94/60
[2018-05-27 05:04] LABS: BASOPHILS % (AUTO) 1.4 % (0.0-5.0); EOSINOPHILS % (AUTO) 1.6 % (0.0-8.0); HEMATOCRIT 22.2 % (42-54); LYMPHOCYTES % (AUTO) 19.8 % (21.0-51.0); MEAN CORPUSCULAR HEMOGLOBIN 35.6 pg (27.0-33.0); MEAN CORPUSCULAR HGB CONC 36.7 g/dL (32.0-36.0); MONOCYTES % (AUTO) 18.4 % (3.0-13.0); NEUTROPHILS % (AUTO) 58.8 % (40.0-77.0); PLATELET COUNT (AUTO) 65 K/uL (130-400); RED BLOOD CELL COUNT(AUTO) 2.28 MIL/uL (4.50-6.20); RED CELL DISTRIBUTION WIDTH 18.2 % (11.0-15.5); WHITE BLOOD COUNT (AUTO) 4.5 K/uL (4.8-10.8)
[2018-05-27 05:14] LABS: CREATININE 1.7 mg/dL (0.5-1.5); POTASSIUM 4.1 mmol/L (3.5-5.1)
[2018-05-27] MEDS: ZOSYN 3.375GM+NS 50ML 50 ML IV SCH ×2 (06:34→16:19)
[2018-05-27] MEDS: INSULIN HUMULIN R 100 UNIT/ML 3ML SQ SCH ×4 (06:35→20:34)
[2018-05-27 07:00] VITALS: BP 110/54
[2018-05-27] MEDS: SPIRONOLACTONE 25 MG TAB PO SCH ×2 (09:26→20:33)
[2018-05-27] MEDS: RIFAXIMIN 550 MG TABLET PO SCH ×2 (09:26→20:33)
[2018-05-27] MEDS: METOPROLOL TARTRATE 25 MG TAB PO SCH ×2 (09:27→20:35)
[2018-05-27] MEDS: FUROSEMIDE 10 MG/ML 4ML VIAL IVP SCH ×2 (09:27→20:33)
[2018-05-27] MEDS: MEGESTROL 400 MG/10 ML UDCUP PO SCH (09:27)
[2018-05-27] MEDS: LACTULOSE 20 GM/30 ML UDCUP PO SCH ×4 (09:27→20:33)
[2018-05-27] MEDS: SODIUM CHLORIDE 0.9% 1000ML 1,000 ML IV SCH ×2 (09:39→22:20)
[2018-05-27 11:00] VITALS: BP 126/61
[2018-05-27 16:00] VITALS: BP 113/63
[2018-05-27] MEDS ORDERED: HYDROCODONE/ACETAMINOPHEN 5/325 MG TAB PO ONE (16:00)
[2018-05-27 20:00] VITALS: BP 95/50
[2018-05-28] VITALS (7 sets, daily range): BP systolic 89–120; BP diastolic 39–58
[2018-05-28] MEDS: ZOSYN 3.375GM+NS 50ML 50 ML IV SCH ×4 (00:34→21:53)
[2018-05-28] MEDS ORDERED: HYDROCODONE/ACETAMINOPHEN 10/325 MG TAB ONE (01:11)
[2018-05-28] MEDS ORDERED: HYDROCODONE/ACETAMINOPHEN 5/325 MG TAB PO SCH ×2 (01:15→12:15)
[2018-05-28] MEDS ORDERED: HYDROCODONE/ACETAMINOPHEN 5/325 MG TAB ONE (01:17)
[2018-05-28] MEDS: ZOLPIDEM TARTRATE 5 MG TAB PO PRN (01:26)
[2018-05-28 06:02] LABS: BASOPHILS % (AUTO) 0.4 % (0.0-5.0); LYMPHOCYTES % (AUTO) 24.9 % (21.0-51.0); MEAN CORPUSCULAR HEMOGLOBIN 35.6 pg (27.0-33.0); MEAN CORPUSCULAR HGB CONC 35.5 g/dL (32.0-36.0); MEAN CORPUSCULAR VOLUME 100.2 fL (79-99); MONOCYTES % (AUTO) 15.7 % (3.0-13.0); NUCLEATED RED BLOOD CELLS 0.2 % (0.0-0.19); RED CELL DISTRIBUTION WIDTH 18.1 % (11.0-15.5); WHITE BLOOD COUNT (AUTO) 2.4 K/uL (4.8-10.8)
[2018-05-28 06:19] LABS: CREATININE 1.6 mg/dL (0.5-1.5); POTASSIUM 4.8 mmol/L (3.5-5.1)
[2018-05-28 06:25] LABS: PLATELET COUNT (AUTO) 37 K/uL (130-400)
[2018-05-28] MEDS: INSULIN HUMULIN R 100 UNIT/ML 3ML SQ SCH ×6 (06:47→21:33)
[2018-05-28 07:07] LABS: BASOPHILS % (MANUAL) 1 % (0-2); LYMPHOCYTES % (MANUAL) 24 % (22-44); MAN.DIFF COMMENT-IMPRESSION MANUAL DIFFERENTIAL; MONOCYTES % (MANUAL) 9 % (2-9); SEGMENTED NEUTROPHILS % 66 % (40-70)
[2018-05-28 08:59] LABS: HEMATOCRIT 18.9 % (42-54)
[2018-05-28] MEDS: FUROSEMIDE 10 MG/ML 4ML VIAL IVP SCH ×2 (09:00→21:24)
[2018-05-28] MEDS: SPIRONOLACTONE 25 MG TAB PO SCH ×2 (09:00→21:23)
[2018-05-28] MEDS: METOPROLOL TARTRATE 25 MG TAB PO SCH ×2 (09:00→21:25)
[2018-05-28] MEDS: ALPRAZOLAM 0.5 MG TABLET PO PRN ×2 (09:05→21:23)
[2018-05-28] MEDS: LACTULOSE 20 GM/30 ML UDCUP PO SCH ×4 (09:05→21:00)
[2018-05-28] MEDS: RIFAXIMIN 550 MG TABLET PO SCH ×2 (09:05→21:23)
[2018-05-28] MEDS: MEGESTROL 400 MG/10 ML UDCUP PO SCH (09:05)
[2018-05-28] MEDS: SODIUM CHLORIDE 0.9% 1000ML 1,000 ML IV SCH (11:40)
[2018-05-28] MEDS: ACETAMINOPHEN 325 MG TAB PO PRN (18:14)
[2018-05-29] VITALS (7 sets, daily range): BP systolic 86–144; BP diastolic 36–69
[2018-05-29] MEDS: ZOLPIDEM TARTRATE 5 MG TAB PO PRN (01:22)
[2018-05-29] MEDS: SODIUM CHLORIDE 0.9% 1000ML 1,000 ML IV SCH ×2 (01:25→14:20)
[2018-05-29] MEDS: ACETAMINOPHEN 325 MG TAB PO PRN (02:22)
[2018-05-29 05:54] LABS: HEMATOCRIT 22.5 % (42-54)
[2018-05-29] MEDS: ZOSYN 3.375GM+NS 50ML 50 ML IV SCH (06:22)
[2018-05-29] MEDS: INSULIN HUMULIN R 100 UNIT/ML 3ML SQ SCH ×4 (06:24→21:49)
[2018-05-29] MEDS: LACTULOSE 20 GM/30 ML UDCUP PO SCH ×4 (09:00→21:46)
[2018-05-29] MEDS: RIFAXIMIN 550 MG TABLET PO SCH ×2 (09:19→21:45)
[2018-05-29] MEDS: METOPROLOL TARTRATE 25 MG TAB PO SCH ×2 (09:20→21:45)
[2018-05-29] MEDS: HYDROCODONE/ACETAMINOPHEN 5/325 MG TAB PO SCH ×2 (09:20→13:02)
[2018-05-29] MEDS: SPIRONOLACTONE 25 MG TAB PO SCH ×2 (09:20→21:45)
[2018-05-29] MEDS: MEGESTROL 400 MG/10 ML UDCUP PO SCH (09:20)
[2018-05-29] MEDS: FUROSEMIDE 10 MG/ML 4ML VIAL IVP SCH ×2 (09:21→21:47)
[2018-05-29] MEDS: ALPRAZOLAM 0.5 MG TABLET PO PRN ×2 (09:27→22:05)
[2018-05-29] MEDS ORDERED: HYDROCODONE/ACETAMINOPHEN 5/325 MG TAB PO ONE (21:45)
[2018-05-30 04:00] VITALS: BP 97/49
[2018-05-30] MEDS: SODIUM CHLORIDE 0.9% 1000ML 1,000 ML IV SCH (04:23)
[2018-05-30 05:12] LABS: BASOPHILS % (AUTO) 0.3 % (0.0-5.0); EOSINOPHILS % (AUTO) 1.1 % (0.0-8.0); HEMATOCRIT 24.9 % (42-54); LYMPHOCYTES % (AUTO) 15.9 % (21.0-51.0); MEAN CORPUSCULAR HEMOGLOBIN 35.3 pg (27.0-33.0); MEAN CORPUSCULAR HGB CONC 35.3 g/dL (32.0-36.0); MEAN CORPUSCULAR VOLUME 99.8 fL (79-99); MONOCYTES % (AUTO) 8.8 % (3.0-13.0); NEUTROPHILS % (AUTO) 73.9 % (40.0-77.0); NUCLEATED RED BLOOD CELLS 0.1 % (0.0-0.19); PLATELET COUNT (AUTO) 48 K/uL (130-400); RED CELL DISTRIBUTION WIDTH 20.8 % (11.0-15.5); WHITE BLOOD COUNT (AUTO) 4.2 K/uL (4.8-10.8)
[2018-05-30 05:18] LABS: POTASSIUM 5.5 mmol/L (3.5-5.1)
[2018-05-30] MEDS: INSULIN HUMULIN R 100 UNIT/ML 3ML SQ SCH ×4 (06:28→21:09)
[2018-05-30] MEDS: ACETAMINOPHEN 325 MG TAB PO PRN (06:35)
[2018-05-30 07:50] VITALS: BP 98/60
[2018-05-30] MEDS: METOPROLOL TARTRATE 25 MG TAB PO SCH ×2 (09:00→21:02)
[2018-05-30] MEDS: LACTULOSE 20 GM/30 ML UDCUP PO SCH ×4 (09:55→21:00)
[2018-05-30] MEDS: MEGESTROL 400 MG/10 ML UDCUP PO SCH (09:58)
[2018-05-30] MEDS: SPIRONOLACTONE 25 MG TAB PO SCH ×2 (09:59→21:02)
[2018-05-30] MEDS: RIFAXIMIN 550 MG TABLET PO SCH ×2 (09:59→21:02)
[2018-05-30] MEDS: ALPRAZOLAM 0.5 MG TABLET PO PRN ×2 (09:59→21:12)
[2018-05-30] MEDS: FUROSEMIDE 10 MG/ML 4ML VIAL IVP SCH ×2 (10:01→21:02)
[2018-05-30 11:36] VITALS: BP 118/56
[2018-05-30] MEDS ORDERED: SODIUM POLYSTYRENE SULFONATE 15 GM/60 ML ML PO SCH (13:15)
[2018-05-30] MEDS ORDERED: HYDROCODONE/ACETAMINOPHEN 5/325 MG TAB PO SCH (13:57)
[2018-05-30 15:35] VITALS: BP 96/41
[2018-05-30 19:40] VITALS: BP 107/54
[2018-05-30] MEDS ORDERED: HYDROCODONE/ACETAMINOPHEN 5/325 MG TAB PO ONE (23:30)
[2018-05-30 23:48] VITALS: BP 120/57
[2018-05-31] MEDS: ZOLPIDEM TARTRATE 5 MG TAB PO PRN (02:33)
[2018-05-31 03:21] VITALS: BP 107/67
[2018-05-31] MEDS: INSULIN HUMULIN R 100 UNIT/ML 3ML SQ SCH ×2 (06:27→12:32)
[2018-05-31 08:00] VITALS: BP 91/39
[2018-05-31] MEDS: RIFAXIMIN 550 MG TABLET PO SCH (08:55)
[2018-05-31] MEDS: SPIRONOLACTONE 25 MG TAB PO SCH (08:55)
[2018-05-31] MEDS: METOPROLOL TARTRATE 25 MG TAB PO SCH (08:55)
[2018-05-31] MEDS: MEGESTROL 400 MG/10 ML UDCUP PO SCH (08:55)
[2018-05-31] MEDS: LACTULOSE 20 GM/30 ML UDCUP PO SCH ×2 (08:55→08:58)
[2018-05-31] MEDS: FUROSEMIDE 10 MG/ML 4ML VIAL IVP SCH (08:55)
[2018-05-31] MEDS: ALPRAZOLAM 0.5 MG TABLET PO PRN (09:52)
[2018-05-31] MEDS ORDERED: RIFA550T PO (10:15)
[2018-05-31] MEDS ORDERED: FURO20TA4 PO (10:15)
[2018-05-31] MEDS ORDERED: SPIR25TA PO (10:15)
[2018-05-31] MEDS ORDERED: METO25 PO (10:15)
[2018-05-31 12:00] VITALS: BP 99/50
== END 2018-05-31 16:03 | disposition home or self-care (01) ==
LOC: EDH 10:46 → OBSVTOIN 10:47 → EDHIP 10:47 → 3BH 19:15
PROVIDERS: ADMIT Internal Medicine; ATTEND Internal Medicine
PROC: 30233N1 Transfusion of Nonautologous Red Blood Cells into Peripheral Vein, Percutaneous Approach (ICD-10-PCS; principal; 2018-05-28)
DX: K74.60 Unspecified cirrhosis of liver (principal); E43 Unspecified severe protein-calorie malnutrition; D61.818 Other pancytopenia; K72.90 Hepatic failure, unspecified without coma; C22.8 Malignant neoplasm of liver, primary, unspecified as to type; E87.70 Fluid overload, unspecified; I38 Endocarditis, valve unspecified; F20.9 Schizophrenia, unspecified; B95.2 Enterococcus as the cause of diseases classified elsewhere; N39.0 Urinary tract infection, site not specified; B96.20 Unspecified Escherichia coli [E. coli] as the cause of diseases classified elsewhere; B19.20 Unspecified viral hepatitis C without hepatic coma; F14.10 Cocaine abuse, uncomplicated; Z16.24 Resistance to multiple antibiotics; F11.10 Opioid abuse, uncomplicated; F13.10 Sedative, hypnotic or anxiolytic abuse, uncomplicated; E11.9 Type 2 diabetes mellitus without complications; F17.200 Nicotine dependence, unspecified, uncomplicated; F31.9 Bipolar disorder, unspecified; I25.10 Atherosclerotic heart disease of native coronary artery without angina pectoris; F43.10 Post-traumatic stress disorder, unspecified; Z16.12 Extended spectrum beta lactamase (ESBL) resistance; F41.9 Anxiety disorder, unspecified; W01.0XXA Fall on same level from slipping, tripping and stumbling without subsequent striking against object, initial encounter; Y92.239 Unspecified place in hospital as the place of occurrence of the external cause; I35.8 Other nonrheumatic aortic valve disorders; Z74.01 Bed confinement status; Z79.4 Long term (current) use of insulin; Z80.0 Family history of malignant neoplasm of digestive organs; Z91.14 Patient's other noncompliance with medication regimen; Z95.5 Presence of coronary angioplasty implant and graft; Z88.6 Allergy status to analgesic agent; Z88.8 Allergy status to other drugs, medicaments and biological substances; Z90.49 Acquired absence of other specified parts of digestive tract; Z82.49 Family history of ischemic heart disease and other diseases of the circulatory system; Y93.89 Activity, other specified; Y99.8 Other external cause status
CPT/HCPCS: 36415; 36430; 70450; 71045; 73020; 73070; 73501; 73600; 76700; 80048; 80053; 80076; 80305; 80339; 82140; 82270; 82550; 82948; 83605; 83880; 84132; 84484; 85014; 85018; 85025; 85027; 85610; 85730; 86140; 86156; 86701; 86850; 86870; 86900; 86901; 86922; 87040; 87077; 87088; 87186; 87390; 93005; 93970; J1815; J1940; J1956; J2270; J2405; J2543; J7030; P9016; P9047

== ENCOUNTER 2018-06-02 10:37 | Emergency (ER) | payer MEDICAID ==
[~2018-06-02 10:37] MED LIST changes: -ALPR1TAB7 PO; +FURO20TA4 PO; -INSLAN SQ; -INSU100I3 SQ; -LACT10SO9 PO; +METO25 PO; +RIFA550T PO; +SPIR25TA PO; -TRAZ300T2 PO
[2018-06-02 11:35] LABS: BASOPHILS % (AUTO) 0.9 % (0.0-5.0); HEMATOCRIT 27.4 % (42-54); LYMPHOCYTES % (AUTO) 19.3 % (21.0-51.0); MEAN CORPUSCULAR HEMOGLOBIN 35.2 pg (27.0-33.0); MEAN CORPUSCULAR HGB CONC 35.2 g/dL (32.0-36.0); MEAN CORPUSCULAR VOLUME 99.9 fL (79-99); MONOCYTES % (AUTO) 11.1 % (3.0-13.0); NEUTROPHILS % (AUTO) 66.7 % (40.0-77.0); PLATELET COUNT (AUTO) 58 K/uL (130-400); RED BLOOD CELL COUNT(AUTO) 2.75 MIL/uL (4.50-6.20); RED CELL DISTRIBUTION WIDTH 18.9 % (11.0-15.5); WHITE BLOOD COUNT (AUTO) 2.4 K/uL (4.8-10.8)
[2018-06-02 11:36] LABS: AMPHET/METH SCREEN,URINE NEGATIVE (NEGATIVE); BARBITURATE SCREEN, URINE NEGATIVE (NEGATIVE); BENZODIAZEPINES SCREEN,URINE POSITIVE (NEGATIVE); CANNABINOID SCREEN,URINE NEGATIVE (NEGATIVE); COCAINE SCREEN,URINE POSITIVE (NEGATIVE); OPIATE SCREEN,URINE NEGATIVE (NEGATIVE); PHENCYCLIDINE SCREEN,URINE NEGATIVE (NEGATIVE)
[2018-06-02 11:46] LABS: ALANINE AMINOTRANSFERASE 70 U/L (12-78); ALBUMIN 2.5 g/dL (3.5-5.0); ALCOHOL, BLOOD < 3 mg/dL (0-10); ASPARTATE AMINOTRANSFERASE 79 U/L (10-37); BILIRUBIN,TOTAL 3.1 mg/dL (0.2-1.0); CARBON DIOXIDE 22 mmol/L (21-32); CHLORIDE 102 mmol/L (101-111); CREATININE 1.2 mg/dL (0.5-1.5); GLOMERULAR FILTR. RATE CALC 69 mL/min (>60); LIPASE 264 U/L (114-286); POTASSIUM 4.8 mmol/L (3.5-5.1); SODIUM SERUM 130 mmol/L (136-145); TOTAL PROTEIN, SERUM 7.6 g/dL (6.0-8.3); UREA NITROGEN, BLOOD 26 mg/dL (7-18)
[2018-06-02 11:48] LABS: ACETAMINOPHEN < 1 mcg/mL (10-29); GLUCOSE,RANDOM 494 mg/dL (70-105); SALICYLATE < 2.8 mg/dL (2.8-20.0)
[2018-06-02] MEDS ORDERED: ONDANSETRON ODT 4 MG TAB ONE (11:49)
[2018-06-02] MEDS ORDERED: MORPHINE SULFATE 4 MG/1ML SYG ONE (11:49)
[2018-06-02] MEDS ORDERED: INSULIN HUMULIN R 100 UNIT/ML 3ML ONE ×3 (11:55→15:28)
[2018-06-02 12:12] LABS: BASOPHILS % (MANUAL) 1 % (0-2); EOSINOPHILS % (MANUAL) 2 % (1-6); LYMPHOCYTES % (MANUAL) 14 % (22-44); MAN.DIFF COMMENT-IMPRESSION MANUAL DIFFERENTIAL; MONOCYTES % (MANUAL) 10 % (2-9); SEGMENTED NEUTROPHILS % 73 % (40-70)
[2018-06-02] MEDS ORDERED: HYDROCODONE/ACETAMINOPHEN 10/325 MG TAB ONE (13:01)
== END 2018-06-02 19:54 | disposition home or self-care (01) ==
LOC: EDH 10:37
DX: F32.9 Major depressive disorder, single episode, unspecified (principal); F41.9 Anxiety disorder, unspecified; E11.9 Type 2 diabetes mellitus without complications; G89.29 Other chronic pain; R10.9 Unspecified abdominal pain; I25.10 Atherosclerotic heart disease of native coronary artery without angina pectoris; B19.20 Unspecified viral hepatitis C without hepatic coma; F20.9 Schizophrenia, unspecified; F19.10 Other psychoactive substance abuse, uncomplicated; F43.10 Post-traumatic stress disorder, unspecified; Z86.73 Personal history of transient ischemic attack (TIA), and cerebral infarction without residual deficits; Z90.49 Acquired absence of other specified parts of digestive tract; Z88.8 Allergy status to other drugs, medicaments and biological substances; Z88.1 Allergy status to other antibiotic agents
CPT/HCPCS: 36415; 80053; 80305; 82948 ×5; 83690; 84484; 85025; 93005; 96372; 96374; 96376; 99285; G0480 ×2; G0481; J1815 ×3; J2270

== ENCOUNTER 2018-06-05 23:05 | Emergency (ER) | payer MEDICAID ==
[2018-06-06 00:06] LABS: EOSINOPHILS % (AUTO) 1.8 % (0.0-8.0); HEMATOCRIT 30.8 % (42-54); LYMPHOCYTES % (AUTO) 17.8 % (21.0-51.0); MEAN CORPUSCULAR HGB CONC 35.1 g/dL (32.0-36.0); MEAN CORPUSCULAR VOLUME 99.7 fL (79-99); MONOCYTES % (AUTO) 11.8 % (3.0-13.0); NEUTROPHILS % (AUTO) 67.6 % (40.0-77.0); NUCLEATED RED BLOOD CELLS 0.1 % (0.0-0.19); PLATELET COUNT (AUTO) 68 K/uL (130-400); RED BLOOD CELL COUNT(AUTO) 3.09 MIL/uL (4.50-6.20); RED CELL DISTRIBUTION WIDTH 17.9 % (11.0-15.5); WHITE BLOOD COUNT (AUTO) 3.5 K/uL (4.8-10.8)
[2018-06-06 00:18] LABS: INR 1.24 (0.85-1.15); PARTIAL THROMBOPLASTIN TIME 36.9 SEC (26.3-35.5)
[2018-06-06 00:20] LABS: ALBUMIN 2.4 g/dL (3.5-5.0); BILIRUBIN,DIRECT 1.7 mg/dL (0.0-0.3); BILIRUBIN,TOTAL 4.2 mg/dL (0.2-1.0); CREATININE 1.3 mg/dL (0.5-1.5); POTASSIUM 4.6 mmol/L (3.5-5.1); TOTAL PROTEIN, SERUM 7.6 g/dL (6.0-8.3)
[2018-06-06 00:40] LABS: B-TYPE NATRIURETIC PEPTIDE 298 pg/mL (0-100)
[2018-06-06] MEDS ORDERED: DICYCLOMINE HCL 10 MG/5 ML ML PO ONE (00:49)
[2018-06-06] MEDS ORDERED: LACTULOSE 20 GM/30 ML UDCUP ONE (01:16)
[2018-06-06] MEDS ORDERED: INSULIN HUMULIN R 100 UNIT/ML 3ML ONE (01:17)
[2018-06-06 02:12] LABS: ABG BASE EXCESS -4.9 mmol/L (-2.0-3.0); ABG HCO3 16.2 mmol/L (21.0-28.0); ABG OXYGEN SATURATION 98.4 % (95.0-99.0); ABG PCO2 22 mmHg (35-48)
== END 2018-06-06 03:20 | disposition home or self-care (01) ==
LOC: EDH 23:05
DX: E11.65 Type 2 diabetes mellitus with hyperglycemia (principal); R53.1 Weakness; K74.60 Unspecified cirrhosis of liver; I25.10 Atherosclerotic heart disease of native coronary artery without angina pectoris; Z86.73 Personal history of transient ischemic attack (TIA), and cerebral infarction without residual deficits; Z79.4 Long term (current) use of insulin; Z88.6 Allergy status to analgesic agent; Z88.5 Allergy status to narcotic agent; Z88.8 Allergy status to other drugs, medicaments and biological substances; Z88.1 Allergy status to other antibiotic agents
CPT/HCPCS: 36415; 36600; 71045; 80048; 80076; 82140; 82550; 82803; 82948; 83690; 83880; 84484; 85025; 85610; 85730; 93005; 99285; J1815

== ENCOUNTER 2018-06-07 01:33 | Inpatient (IN) | payer MEDICAID ==
[~2018-06-07] VITALS: Ht 172.7 cm; Wt 72.6 kg
[2018-06-07 02:10] LABS: APPEARANCE,URINE Clear (CLEAR); BILIRUBIN,URINE Negative (NEGATIVE); COLOR,URINE Dark Yellow (YELLOW); GLUCOSE, URINE (UA) 250 mg/dL (NEGATIVE); KETONES,URINE Negative (NEGATIVE); LEUKOCYTE ESTERASE ,URINE Negative (NEGATIVE); NITRATE,URINE Negative (NEGATIVE); OCCULT BLOOD,URINE Small (NEGATIVE); PROTEIN,URINE Negative (NEGATIVE)
[2018-06-07 02:17] LABS: AMPHET/METH SCREEN,URINE NEGATIVE (NEGATIVE); BARBITURATE SCREEN, URINE NEGATIVE (NEGATIVE); BENZODIAZEPINES SCREEN,URINE NEGATIVE (NEGATIVE); CANNABINOID SCREEN,URINE NEGATIVE (NEGATIVE); COCAINE SCREEN,URINE NEGATIVE (NEGATIVE); OPIATE SCREEN,URINE NEGATIVE (NEGATIVE); PHENCYCLIDINE SCREEN,URINE NEGATIVE (NEGATIVE)
[2018-06-07 02:35] LABS: BACTERIA,URINE None Seen /HPF (None Seen); HYALINE CASTS, URINE 0-1 /LPF (0-1 /LPF); RBC,URINE 0-1 /HPF (0-1); SQUAMOUS EPITHELIAL CELL,UR Rare /HPF (0-2); WBC,URINE None Seen /HPF (0-1); YEAST,URINE BUDDING Rare /HPF (None Seen)
[2018-06-07] MEDS ORDERED: ONDANSETRON HCL 4 MG/2 ML VIAL ONE (02:36)
[2018-06-07 03:20] LABS: BASOPHILS % (AUTO) 0.4 % (0.0-5.0); EOSINOPHILS % (AUTO) 2.8 % (0.0-8.0); HEMATOCRIT 21.1 % (42-54); LYMPHOCYTES % (AUTO) 26.3 % (21.0-51.0); MEAN CORPUSCULAR HEMOGLOBIN 33.9 pg (27.0-33.0); MEAN CORPUSCULAR HGB CONC 35.3 g/dL (32.0-36.0); MONOCYTES % (AUTO) 12.5 % (3.0-13.0); PLATELET COUNT (AUTO) 40 K/uL (130-400); RED BLOOD CELL COUNT(AUTO) 2.19 MIL/uL (4.50-6.20); RED CELL DISTRIBUTION WIDTH 18.3 % (11.0-15.5); WHITE BLOOD COUNT (AUTO) 2.6 K/uL (4.8-10.8)
[2018-06-07 03:29] LABS: CARBON DIOXIDE 19 mmol/L (21-32); CHLORIDE 108 mmol/L (101-111); GLOMERULAR FILTR. RATE CALC 85 mL/min (>60); GLUCOSE,RANDOM 213 mg/dL (70-105); POTASSIUM 4.5 mmol/L (3.5-5.1); SODIUM SERUM 133 mmol/L (136-145); UREA NITROGEN, BLOOD 26 mg/dL (7-18)
[2018-06-07 03:33] LABS: ALANINE AMINOTRANSFERASE 61 U/L (12-78); ALCOHOL, BLOOD < 3 mg/dL (0-10); ASPARTATE AMINOTRANSFERASE 77 U/L (10-37); BILIRUBIN,TOTAL 3.4 mg/dL (0.2-1.0); CREATINE KINASE, TOTAL 73 U/L (21-232); LIPASE 181 U/L (114-286); TOTAL PROTEIN, SERUM 6.1 g/dL (6.0-8.3)
[2018-06-07 03:47] LABS: BAND NEUTROPHILS % (MANUAL) 8 % (0-2); EOSINOPHILS % (MANUAL) 3 % (1-6); LYMPHOCYTES % (MANUAL) 18 % (22-44); METAMYELOCYTES % 1 % (0-0); MONOCYTES % (MANUAL) 10 % (2-9); REACTIVE LYMPHOCYTES 2 % (0-0); SEGMENTED NEUTROPHILS % 58 % (40-70)
[2018-06-07 03:48] LABS: MAN.DIFF COMMENT-IMPRESSION MANUAL DIFFERENTIAL
[2018-06-07 03:49] LABS: PLATELET MORPHOLOGY COMMENT MARKED DECREASED
[2018-06-07] MEDS ORDERED: DICYCLOMINE HCL 20 MG TAB ONE (03:50)
[2018-06-07 03:59] LABS: INR 1.28 (0.85-1.15); PARTIAL THROMBOPLASTIN TIME 44.1 SEC (26.3-35.5); PROTHROMBIN TIME 13.4 SEC (9.6-11.6)
[2018-06-07] MEDS ORDERED: LACTULOSE 20 GM/30 ML UDCUP ONE (06:28)
[2018-06-07] MEDS ORDERED: SODIUM CHLORIDE 0.9% 1000ML 1,000 ML IV ONE (06:28)
[2018-06-07] MEDS ORDERED: ONDANSETRON HCL 4 MG/2 ML VIAL IVP PRN (07:45)
[2018-06-07] MEDS ORDERED: NITROGLYCERIN 0.4 MG SL TAB SL PRN (07:45)
[2018-06-07] MEDS ORDERED: SODIUM CHLORIDE 0.9% 10 ML VIAL IVP SCH (07:45)
[2018-06-07] MEDS ORDERED: LACTULOSE 20 GM/30 ML UDCUP PO PRN ×2 (07:45→10:00)
[2018-06-07] MEDS ORDERED: ACETAMINOPHEN 325 MG TAB PO PRN (07:45)
[2018-06-07 07:47] VITALS: BP 127/59
[2018-06-07] MEDS: SPIRONOLACTONE 25 MG TAB PO SCH ×2 (08:20→20:08)
[2018-06-07] MEDS: METOPROLOL TARTRATE 25 MG TAB PO SCH ×2 (08:20→20:08)
[2018-06-07] MEDS: FUROSEMIDE 20 MG TABLET PO SCH ×2 (08:20→20:08)
[2018-06-07] MEDS: RIFAXIMIN 550 MG TABLET PO SCH ×2 (08:21→20:08)
[2018-06-07] MEDS: ALPRAZOLAM 0.5 MG TABLET PO SCH ×2 (08:22→20:08)
[2018-06-07] MEDS: DICYCLOMINE HCL 20 MG TAB PO PRN (08:23)
[2018-06-07] MEDS: SODIUM CHLORIDE 0.9% 1000ML 1,000 ML IV SCH ×4 (08:24→20:35)
[2018-06-07] MEDS ORDERED: MORPHINE SULFATE 2 MG/ML 1ML SYG IVP SCH (10:00)
[2018-06-07] MEDS ORDERED: MORPHINE SULFATE 2 MG/ML 1ML SYG ONE (10:19)
[2018-06-07 11:20] VITALS: BP 131/56
[2018-06-07 16:28] VITALS: BP 138/66
[2018-06-07 19:27] LABS: HEMATOCRIT 27.1 % (42-54)
[2018-06-07 19:45] VITALS: BP 129/61
[2018-06-07] MEDS: LACTULOSE 20 GM/30 ML UDCUP PO SCH (20:09)
[2018-06-07] MEDS ORDERED: LORAZEPAM 2 MG/ML 1 ML VIAL IM ONE (22:45)
[2018-06-07] MEDS ORDERED: HALOPERIDOL DECANOATE 100 MG/ML ML IM PRN (23:00)
[2018-06-07] MEDS ORDERED: LORAZEPAM 2 MG/ML 1 ML VIAL IM PRN (23:00)
[2018-06-08] VITALS (19 sets, daily range): BP systolic 96–183; BP diastolic 40–98
[2018-06-08 04:51] LABS: BASOPHILS % (AUTO) 0.4 % (0.0-5.0); MEAN CORPUSCULAR HEMOGLOBIN 34.5 pg (27.0-33.0); MEAN CORPUSCULAR HGB CONC 36.3 g/dL (32.0-36.0); MEAN CORPUSCULAR VOLUME 95.2 fL (79-99); MONOCYTES % (AUTO) 9.6 % (3.0-13.0); PLATELET COUNT (AUTO) 53 K/uL (130-400); RED BLOOD CELL COUNT(AUTO) 2.14 MIL/uL (4.50-6.20); RED CELL DISTRIBUTION WIDTH 18.1 % (11.0-15.5); WHITE BLOOD COUNT (AUTO) 2.6 K/uL (4.8-10.8)
[2018-06-08 05:03] LABS: HEMATOCRIT 20.4 % (42-54)
[2018-06-08 05:06] LABS: CREATININE 0.7 mg/dL (0.5-1.5); POTASSIUM 4.1 mmol/L (3.5-5.1)
[2018-06-08] MEDS: SODIUM CHLORIDE 0.9% 1000ML 1,000 ML IV SCH ×2 (05:20→20:46)
[2018-06-08 05:27] LABS: BAND NEUTROPHILS % (MANUAL) 2 % (0-2); EOSINOPHILS % (MANUAL) 1 % (1-6); LYMPHOCYTES % (MANUAL) 26 % (22-44); MAN.DIFF COMMENT-IMPRESSION MANUAL DIFFERENTIAL; MONOCYTES % (MANUAL) 8 % (2-9); SEGMENTED NEUTROPHILS % 63 % (40-70)
[2018-06-08 05:29] LABS: PLATELET MORPHOLOGY COMMENT DECREASED
[2018-06-08] MEDS ORDERED: SODIUM CHLORIDE 0.9% 500ML 250 ML IV SCH (05:45)
[2018-06-08] MEDS: PANTOPRAZOLE 40 MG/VIAL IVP SCH (10:00)
[2018-06-08] MEDS: LACTULOSE 20 GM/30 ML UDCUP PO SCH ×3 (10:00→20:47)
[2018-06-08] MEDS: METOPROLOL TARTRATE 25 MG TAB PO SCH ×2 (10:00→20:47)
[2018-06-08] MEDS: ALPRAZOLAM 0.5 MG TABLET PO SCH ×2 (10:01→20:47)
[2018-06-08] MEDS: RIFAXIMIN 550 MG TABLET PO SCH ×2 (10:01→20:46)
[2018-06-08] MEDS: FUROSEMIDE 20 MG TABLET PO SCH ×2 (10:02→20:46)
[2018-06-08] MEDS: SPIRONOLACTONE 25 MG TAB PO SCH ×2 (10:02→20:46)
[2018-06-08] MEDS: HYDROCODONE/ACETAMINOPHEN 5/325 MG TAB PO PRN ×2 (12:05→17:26)
[2018-06-08 18:23] LABS: HEMATOCRIT 24.9 % (42-54)
[2018-06-08] MEDS ORDERED: HYDRALAZINE HCL 20 MG/ML VIAL ONE (18:50)
[2018-06-08] MEDS ORDERED: HYDRALAZINE HCL 20 MG/ML VIAL IV PRN (19:00)
[2018-06-09] VITALS (11 sets, daily range): BP systolic 91–123; BP diastolic 38–56
[2018-06-09 00:20] LABS: HEMATOCRIT 24.7 % (42-54)
[2018-06-09] MEDS: HYDROCODONE/ACETAMINOPHEN 5/325 MG TAB PO PRN ×4 (00:53→18:50)
[2018-06-09 06:47] LABS: CREATININE 0.8 mg/dL (0.5-1.5); POTASSIUM 4.3 mmol/L (3.5-5.1)
[2018-06-09 06:51] LABS: HEMATOCRIT 24.2 % (42-54); MEAN CORPUSCULAR HEMOGLOBIN 34.4 pg (27.0-33.0); MEAN CORPUSCULAR HGB CONC 36.2 g/dL (32.0-36.0); NUCLEATED RED BLOOD CELLS 0.1 % (0.0-0.19); PLATELET COUNT (AUTO) 57 K/uL (130-400); RED BLOOD CELL COUNT(AUTO) 2.55 MIL/uL (4.50-6.20); RED CELL DISTRIBUTION WIDTH 18.1 % (11.0-15.5); WHITE BLOOD COUNT (AUTO) 3.4 K/uL (4.8-10.8)
[2018-06-09] MEDS: SODIUM CHLORIDE 0.9% 1000ML 1,000 ML IV SCH (08:00)
[2018-06-09] MEDS: LACTULOSE 20 GM/30 ML UDCUP PO SCH ×3 (08:13→21:06)
[2018-06-09] MEDS: METOPROLOL TARTRATE 25 MG TAB PO SCH ×2 (08:13→21:05)
[2018-06-09] MEDS: ALPRAZOLAM 0.5 MG TABLET PO SCH ×2 (08:14→21:04)
[2018-06-09] MEDS: FUROSEMIDE 20 MG TABLET PO SCH ×2 (08:14→21:06)
[2018-06-09] MEDS: SPIRONOLACTONE 25 MG TAB PO SCH ×2 (08:15→21:05)
[2018-06-09] MEDS: RIFAXIMIN 550 MG TABLET PO SCH ×2 (08:40→21:05)
[2018-06-09] MEDS: PANTOPRAZOLE 40 MG/VIAL IVP SCH (08:40)
[2018-06-10] VITALS: BP 102/43
[2018-06-10] MEDS: HYDROCODONE/ACETAMINOPHEN 5/325 MG TAB PO PRN ×3 (00:33→22:42)
[2018-06-10 04:00] VITALS: BP 108/56
[2018-06-10] MEDS ORDERED: DEXTROSE 50%-WATER 50 ML DISP.SYRIN IV PRN (06:45)
[2018-06-10] MEDS ORDERED: GLUCAGON 1MG KIT 1 MG ML IM PRN (06:45)
[2018-06-10] MEDS: INSULIN HUMULIN R 100 UNIT/ML 3ML SQ SCH ×4 (06:55→21:13)
[2018-06-10 08:52] VITALS: BP 114/52
[2018-06-10] MEDS: LACTULOSE 20 GM/30 ML UDCUP PO SCH ×3 (09:18→21:14)
[2018-06-10] MEDS: SPIRONOLACTONE 25 MG TAB PO SCH ×2 (09:19→21:13)
[2018-06-10] MEDS: FUROSEMIDE 20 MG TABLET PO SCH ×2 (09:19→21:14)
[2018-06-10] MEDS: PANTOPRAZOLE SODIUM 40 MG TABLET.DR PO SCH (09:19)
[2018-06-10] MEDS: METOPROLOL TARTRATE 25 MG TAB PO SCH ×2 (09:19→21:13)
[2018-06-10] MEDS: RIFAXIMIN 550 MG TABLET PO SCH ×2 (09:19→21:14)
[2018-06-10] MEDS: DICYCLOMINE HCL 20 MG TAB PO PRN (09:19)
[2018-06-10] MEDS: ALPRAZOLAM 0.5 MG TABLET PO SCH ×2 (09:23→21:14)
[2018-06-10 12:00] VITALS: BP 121/57
[2018-06-10 16:00] VITALS: BP 115/57
[2018-06-10 19:00] VITALS: BP 107/46
[2018-06-11] VITALS: BP 110/56
[2018-06-11 04:00] VITALS: BP 113/61
[2018-06-11] MEDS: HYDROCODONE/ACETAMINOPHEN 5/325 MG TAB PO PRN ×3 (04:19→23:55)
[2018-06-11 05:08] LABS: BASOPHILS % (AUTO) 0.5 % (0.0-5.0); EOSINOPHILS % (AUTO) 3.3 % (0.0-8.0); HEMATOCRIT 24.4 % (42-54); LYMPHOCYTES % (AUTO) 27.5 % (21.0-51.0); MEAN CORPUSCULAR HEMOGLOBIN 34.5 pg (27.0-33.0); MEAN CORPUSCULAR HGB CONC 35.8 g/dL (32.0-36.0); MEAN CORPUSCULAR VOLUME 96.3 fL (79-99); MONOCYTES % (AUTO) 8.7 % (3.0-13.0); PLATELET COUNT (AUTO) 63 K/uL (130-400); RED BLOOD CELL COUNT(AUTO) 2.53 MIL/uL (4.50-6.20); WHITE BLOOD COUNT (AUTO) 3.6 K/uL (4.8-10.8)
[2018-06-11 05:15] LABS: CREATININE 0.9 mg/dL (0.5-1.5); POTASSIUM 4.5 mmol/L (3.5-5.1)
[2018-06-11] MEDS: PANTOPRAZOLE SODIUM 40 MG TABLET.DR PO SCH (07:01)
[2018-06-11] MEDS: INSULIN HUMULIN R 100 UNIT/ML 3ML SQ SCH ×4 (07:01→21:28)
[2018-06-11 08:00] VITALS: BP 118/53
[2018-06-11] MEDS: METOPROLOL TARTRATE 25 MG TAB PO SCH ×2 (09:00→21:21)
[2018-06-11] MEDS: SPIRONOLACTONE 25 MG TAB PO SCH ×2 (10:17→21:20)
[2018-06-11] MEDS: RIFAXIMIN 550 MG TABLET PO SCH ×2 (10:17→21:21)
[2018-06-11] MEDS: FUROSEMIDE 20 MG TABLET PO SCH ×2 (10:17→21:20)
[2018-06-11] MEDS: LACTULOSE 20 GM/30 ML UDCUP PO SCH ×3 (10:17→21:28)
[2018-06-11] MEDS: ALPRAZOLAM 0.5 MG TABLET PO SCH ×2 (10:18→21:20)
[2018-06-11 12:00] VITALS: BP 112/58
[2018-06-11 15:43] LABS: APPEARANCE,URINE Clear (CLEAR); BILIRUBIN,URINE Negative (NEGATIVE); COLOR,URINE Dark Yellow (YELLOW); GLUCOSE, URINE (UA) Negative (NEGATIVE); KETONES,URINE Negative (NEGATIVE); LEUKOCYTE ESTERASE ,URINE Trace (NEGATIVE); NITRATE,URINE Negative (NEGATIVE); OCCULT BLOOD,URINE Negative (NEGATIVE); PROTEIN,URINE Negative (NEGATIVE); UROBILINOGEN,URINE 0.2 mg/dL (0.2-1.0)
[2018-06-11 16:00] VITALS: BP 115/59
[2018-06-11 16:55] LABS: BACTERIA,URINE Few /HPF (None Seen); RBC,URINE 0-1 /HPF (0-1); SQUAMOUS EPITHELIAL CELL,UR Rare /HPF (0-2)
[2018-06-11 20:02] VITALS: BP 139/70
[2018-06-12] VITALS (7 sets, daily range): BP systolic 101–143; BP diastolic 49–65
[2018-06-12 05:42] LABS: BASOPHILS % (AUTO) 1.2 % (0.0-5.0); EOSINOPHILS % (AUTO) 3.4 % (0.0-8.0); HEMATOCRIT 25.5 % (42-54); LYMPHOCYTES % (AUTO) 27.8 % (21.0-51.0); MEAN CORPUSCULAR HEMOGLOBIN 34.6 pg (27.0-33.0); MEAN CORPUSCULAR HGB CONC 36.3 g/dL (32.0-36.0); MEAN CORPUSCULAR VOLUME 95.4 fL (79-99); MONOCYTES % (AUTO) 8.2 % (3.0-13.0); NEUTROPHILS % (AUTO) 59.4 % (40.0-77.0); PLATELET COUNT (AUTO) 78 K/uL (130-400); RED BLOOD CELL COUNT(AUTO) 2.67 MIL/uL (4.50-6.20); RED CELL DISTRIBUTION WIDTH 19.2 % (11.0-15.5); WHITE BLOOD COUNT (AUTO) 3.9 K/uL (4.8-10.8)
[2018-06-12 06:00] LABS: POTASSIUM 4.8 mmol/L (3.5-5.1)
[2018-06-12] MEDS: PANTOPRAZOLE SODIUM 40 MG TABLET.DR PO SCH (06:34)
[2018-06-12] MEDS: INSULIN HUMULIN R 100 UNIT/ML 3ML SQ SCH ×4 (06:36→20:45)
[2018-06-12] MEDS: ALPRAZOLAM 0.5 MG TABLET PO SCH ×3 (09:00→20:32)
[2018-06-12] MEDS: LACTULOSE 20 GM/30 ML UDCUP PO SCH ×3 (09:00→20:31)
[2018-06-12] MEDS: SPIRONOLACTONE 25 MG TAB PO SCH ×2 (09:00→20:32)
[2018-06-12] MEDS: METOPROLOL TARTRATE 25 MG TAB PO SCH ×2 (09:00→20:32)
[2018-06-12] MEDS: FUROSEMIDE 20 MG TABLET PO SCH ×2 (09:00→20:32)
[2018-06-12] MEDS: RIFAXIMIN 550 MG TABLET PO SCH ×2 (16:48→20:32)
[2018-06-12] MEDS: LEVOFLOXACIN 500 MG TABLET PO SCH (16:48)
[2018-06-12] MEDS: HYDROCODONE/ACETAMINOPHEN 5/325 MG TAB PO PRN (16:50)
[2018-06-13 03:17] VITALS: BP 138/55
[2018-06-13 04:45] LABS: CREATININE 1.1 mg/dL (0.5-1.5); POTASSIUM 4.7 mmol/L (3.5-5.1)
[2018-06-13 04:46] LABS: BASOPHILS % (AUTO) 0.6 % (0.0-5.0); EOSINOPHILS % (AUTO) 2.7 % (0.0-8.0); HEMATOCRIT 27.6 % (42-54); LYMPHOCYTES % (AUTO) 24.1 % (21.0-51.0); MEAN CORPUSCULAR HEMOGLOBIN 34.3 pg (27.0-33.0); MEAN CORPUSCULAR HGB CONC 35.9 g/dL (32.0-36.0); MEAN CORPUSCULAR VOLUME 95.5 fL (79-99); MONOCYTES % (AUTO) 10.2 % (3.0-13.0); NEUTROPHILS % (AUTO) 62.4 % (40.0-77.0); PLATELET COUNT (AUTO) 69 K/uL (130-400); RED CELL DISTRIBUTION WIDTH 20.2 % (11.0-15.5)
[2018-06-13] MEDS: PANTOPRAZOLE SODIUM 40 MG TABLET.DR PO SCH (06:31)
[2018-06-13] MEDS: HYDROCODONE/ACETAMINOPHEN 5/325 MG TAB PO PRN ×4 (06:31→22:57)
[2018-06-13] MEDS: INSULIN HUMULIN R 100 UNIT/ML 3ML SQ SCH ×4 (06:35→20:49)
[2018-06-13 07:09] VITALS: BP 131/68
[2018-06-13] MEDS: ALPRAZOLAM 0.5 MG TABLET PO SCH ×2 (11:25→20:47)
[2018-06-13 11:26] VITALS: BP 112/47
[2018-06-13] MEDS: RIFAXIMIN 550 MG TABLET PO SCH ×2 (11:26→20:47)
[2018-06-13] MEDS: SPIRONOLACTONE 25 MG TAB PO SCH ×2 (11:26→20:47)
[2018-06-13] MEDS: LEVOFLOXACIN 500 MG TABLET PO SCH (11:27)
[2018-06-13] MEDS: FUROSEMIDE 20 MG TABLET PO SCH ×2 (11:27→20:47)
[2018-06-13] MEDS: METOPROLOL TARTRATE 25 MG TAB PO SCH ×2 (11:28→20:47)
[2018-06-13] MEDS: LACTULOSE 20 GM/30 ML UDCUP PO SCH ×3 (11:28→20:47)
[2018-06-13 14:31] VITALS: BP 110/49
[2018-06-13 20:00] VITALS: BP 138/60
[2018-06-14] VITALS: BP 125/61
[2018-06-14 03:57] VITALS: BP 122/61
[2018-06-14] MEDS: PANTOPRAZOLE SODIUM 40 MG TABLET.DR PO SCH (06:19)
[2018-06-14] MEDS: INSULIN HUMULIN R 100 UNIT/ML 3ML SQ SCH ×3 (06:20→17:28)
[2018-06-14 07:05] VITALS: BP 119/56
[2018-06-14] MEDS: LACTULOSE 20 GM/30 ML UDCUP PO SCH ×2 (09:00→13:32)
[2018-06-14] MEDS: RIFAXIMIN 550 MG TABLET PO SCH (10:24)
[2018-06-14] MEDS: ALPRAZOLAM 0.5 MG TABLET PO SCH (10:24)
[2018-06-14] MEDS: FUROSEMIDE 20 MG TABLET PO SCH (10:24)
[2018-06-14] MEDS: METOPROLOL TARTRATE 25 MG TAB PO SCH (10:24)
[2018-06-14] MEDS: LEVOFLOXACIN 500 MG TABLET PO SCH (10:24)
[2018-06-14] MEDS: HYDROCODONE/ACETAMINOPHEN 5/325 MG TAB PO PRN (10:25)
[2018-06-14] MEDS: SPIRONOLACTONE 25 MG TAB PO SCH (10:31)
[2018-06-14 11:30] VITALS: BP 131/63
[2018-06-14 11:30] LABS: BASOPHILS % (AUTO) 0.7 % (0.0-5.0); EOSINOPHILS % (AUTO) 2.8 % (0.0-8.0); HEMATOCRIT 26.1 % (42-54); LYMPHOCYTES % (AUTO) 30.2 % (21.0-51.0); MEAN CORPUSCULAR HEMOGLOBIN 34.8 pg (27.0-33.0); MEAN CORPUSCULAR HGB CONC 36.8 g/dL (32.0-36.0); MEAN CORPUSCULAR VOLUME 94.4 fL (79-99); NEUTROPHILS % (AUTO) 55.3 % (40.0-77.0); NUCLEATED RED BLOOD CELLS 0.1 % (0.0-0.19); PLATELET COUNT (AUTO) 73 K/uL (130-400); RED BLOOD CELL COUNT(AUTO) 2.77 MIL/uL (4.50-6.20); RED CELL DISTRIBUTION WIDTH 20.8 % (11.0-15.5); WHITE BLOOD COUNT (AUTO) 3.8 K/uL (4.8-10.8)
[2018-06-14 12:11] LABS: CREATININE 1.1 mg/dL (0.5-1.5); POTASSIUM 4.9 mmol/L (3.5-5.1)
[2018-06-14 16:00] VITALS: BP 113/56
== END 2018-06-14 19:40 | disposition left against medical advice (07) | DRG 660 ==
LOC: EDH 01:33 → EDHIP 01:34 → 4BH 07:30 → 3DH 20:33 → 2CH 06-08 12:28 → 3AH 06-09 17:31
PROVIDERS: ADMIT Hospitalist; ATTEND Hospitalist
PROC: 30233N1 Transfusion of Nonautologous Red Blood Cells into Peripheral Vein, Percutaneous Approach (ICD-10-PCS; principal; 2018-06-08)
DX: D61.818 Other pancytopenia (principal); E43 Unspecified severe protein-calorie malnutrition; D68.9 Coagulation defect, unspecified; D69.59 Other secondary thrombocytopenia; C22.9 Malignant neoplasm of liver, not specified as primary or secondary; R64 Cachexia; E87.1 Hypo-osmolality and hyponatremia; F20.9 Schizophrenia, unspecified; K70.30 Alcoholic cirrhosis of liver without ascites; K72.90 Hepatic failure, unspecified without coma; K92.2 Gastrointestinal hemorrhage, unspecified; F31.9 Bipolar disorder, unspecified; F43.10 Post-traumatic stress disorder, unspecified; I25.10 Atherosclerotic heart disease of native coronary artery without angina pectoris; B19.20 Unspecified viral hepatitis C without hepatic coma; R04.0 Epistaxis; F41.9 Anxiety disorder, unspecified; Z53.21 Procedure and treatment not carried out due to patient leaving prior to being seen by health care provider; F19.10 Other psychoactive substance abuse, uncomplicated; N39.0 Urinary tract infection, site not specified; D73.1 Hypersplenism; E11.9 Type 2 diabetes mellitus without complications; Z59.0 Homelessness; Z91.14 Patient's other noncompliance with medication regimen; Z91.19 Patient's noncompliance with other medical treatment and regimen; Z74.01 Bed confinement status; Z87.891 Personal history of nicotine dependence; I25.2 Old myocardial infarction; Z80.0 Family history of malignant neoplasm of digestive organs; Z80.1 Family history of malignant neoplasm of trachea, bronchus and lung; Z82.49 Family history of ischemic heart disease and other diseases of the circulatory system; Z85.05 Personal history of malignant neoplasm of liver; Z86.73 Personal history of transient ischemic attack (TIA), and cerebral infarction without residual deficits; Z88.8 Allergy status to other drugs, medicaments and biological substances; Z90.49 Acquired absence of other specified parts of digestive tract; Z95.5 Presence of coronary angioplasty implant and graft; Z68.24 Body mass index [BMI] 24.0-24.9, adult; Z79.4 Long term (current) use of insulin
CPT/HCPCS: 36415; 36600; 71045; 71046; 76870; 80048; 80053; 80076; 80305; 81001; 82140; 82270; 82550; 82803; 82948; 83690; 83880; 84484; 85014; 85018; 85025; 85027; 85610; 85730; 86156; 86701; 86850; 86870; 86900; 86901; 86922; 87088; 87390; 93005; 97039; C9113; G0480; J0360; J1815; J2405; J7030; P9016

== ENCOUNTER 2018-06-20 17:22 | Observation (INO) | payer MEDICAID ==
[~2018-06-20] VITALS: Ht 162.6 cm; Wt 72.0 kg
[2018-06-20] MEDS ORDERED: SODIUM CHLORIDE 0.9% 1000ML 1,000 ML IV ONE (17:45)
[2018-06-20 17:50] LABS: BASOPHILS % (AUTO) 0.6 % (0.0-5.0); EOSINOPHILS % (AUTO) 1.1 % (0.0-8.0); LYMPHOCYTES % (AUTO) 25.8 % (21.0-51.0); MEAN CORPUSCULAR HEMOGLOBIN 35.7 pg (27.0-33.0); MEAN CORPUSCULAR HGB CONC 35.8 g/dL (32.0-36.0); MEAN CORPUSCULAR VOLUME 99.6 fL (79-99); MONOCYTES % (AUTO) 8.9 % (3.0-13.0); NEUTROPHILS % (AUTO) 63.6 % (40.0-77.0); NUCLEATED RED BLOOD CELLS 0.2 % (0.0-0.19); PLATELET COUNT (AUTO) 39 K/uL (130-400); RED BLOOD CELL COUNT(AUTO) 1.95 MIL/uL (4.50-6.20); RED CELL DISTRIBUTION WIDTH 22.6 % (11.0-15.5); WHITE BLOOD COUNT (AUTO) 1.4 K/uL (4.8-10.8)
[2018-06-20 17:53] LABS: HEMATOCRIT 19.4 % (42-54)
[2018-06-20 18:00] LABS: CARBON DIOXIDE 18 mmol/L (21-32); CHLORIDE 115 mmol/L (101-111); CREATININE 0.9 mg/dL (0.5-1.5); GLOMERULAR FILTR. RATE CALC 96 mL/min (>60); GLUCOSE,RANDOM 232 mg/dL (70-105); POTASSIUM 3.1 mmol/L (3.5-5.1); SODIUM SERUM 145 mmol/L (136-145); UREA NITROGEN, BLOOD 13 mg/dL (7-18)
[2018-06-20 18:03] LABS: INR 1.32 (0.85-1.15); PARTIAL THROMBOPLASTIN TIME 38.5 SEC (26.3-35.5); PROTHROMBIN TIME 13.8 SEC (9.6-11.6)
[2018-06-20 18:05] LABS: ALANINE AMINOTRANSFERASE 58 U/L (12-78); ALBUMIN 2.1 g/dL (3.5-5.0); ALCOHOL, BLOOD < 3 mg/dL (0-10); ASPARTATE AMINOTRANSFERASE 93 U/L (10-37)
[2018-06-20 18:10] LABS: AMMONIA 113 umol/L (11-32)
[2018-06-20 18:24] LABS: BAND NEUTROPHILS % (MANUAL) 2 % (0-2); EOSINOPHILS % (MANUAL) 2 % (1-6); LYMPHOCYTES % (MANUAL) 22 % (22-44); MONOCYTES % (MANUAL) 6 % (2-9); SEGMENTED NEUTROPHILS % 68 % (40-70)
[2018-06-20 18:25] LABS: MAN.DIFF COMMENT-IMPRESSION MANUAL DIFFERENTIAL
[2018-06-20 18:30] LABS: PLATELET MORPHOLOGY COMMENT MARKED DECREASED
[2018-06-20 18:46] LABS: APPEARANCE,URINE CLEAR (CLEAR); BILIRUBIN,URINE SMALL (NEGATIVE); COLOR,URINE YELLOW (YELLOW); GLUCOSE, URINE (UA) 250 mg/dL (NEGATIVE); KETONES,URINE 5 mg/dL (NEGATIVE); LEUKOCYTE ESTERASE ,URINE NEGATIVE (NEGATIVE); NITRATE,URINE NEGATIVE (NEGATIVE); OCCULT BLOOD,URINE SMALL (NEGATIVE); PROTEIN,URINE TRACE (NEGATIVE)
[2018-06-20 18:54] LABS: AMPHET/METH SCREEN,URINE NEGATIVE (NEGATIVE); BARBITURATE SCREEN, URINE NEGATIVE (NEGATIVE); BENZODIAZEPINES SCREEN,URINE NEGATIVE (NEGATIVE); CANNABINOID SCREEN,URINE NEGATIVE (NEGATIVE); COCAINE SCREEN,URINE POSITIVE (NEGATIVE); OPIATE SCREEN,URINE NEGATIVE (NEGATIVE); PHENCYCLIDINE SCREEN,URINE NEGATIVE (NEGATIVE)
[2018-06-20 18:58] LABS: BACTERIA,URINE Few /HPF (None Seen); MUCUS,URINE Few LPF (None Seen); SQUAMOUS EPITHELIAL CELL,UR Few /HPF (0-2); WBC,URINE 0-1 /HPF (0-1)
[2018-06-20] MEDS: LACTULOSE 20 GM/30 ML UDCUP PO SCH ×2 (21:15→23:15)
[2018-06-20] MEDS ORDERED: ONDANSETRON ODT 4 MG TAB PO PRN (21:15)
[2018-06-20] MEDS ORDERED: PANTOPRAZOLE SODIUM 40 MG TABLET.DR PO ONE (21:42)
[2018-06-20] MEDS ORDERED: LACTULOSE 20 GM/30 ML UDCUP ONE (21:42)
[2018-06-20 22:45] VITALS: BP 122/53
[2018-06-21] MEDS: LACTULOSE 20 GM/30 ML UDCUP PO SCH ×2 (00:49→22:23)
[2018-06-21 04:00] VITALS: BP 122/68
[2018-06-21 05:59] LABS: MEAN CORPUSCULAR HEMOGLOBIN 35.6 pg (27.0-33.0); MEAN CORPUSCULAR HGB CONC 35.5 g/dL (32.0-36.0); MEAN CORPUSCULAR VOLUME 100.3 fL (79-99); NUCLEATED RED BLOOD CELLS 0.1 % (0.0-0.19); PLATELET COUNT (AUTO) 35 K/uL (130-400); RED BLOOD CELL COUNT(AUTO) 1.84 MIL/uL (4.50-6.20); RED CELL DISTRIBUTION WIDTH 22.3 % (11.0-15.5); WHITE BLOOD COUNT (AUTO) 1.2 K/uL (4.8-10.8)
[2018-06-21 06:13] LABS: HEMATOCRIT 18.4 % (42-54)
[2018-06-21 06:14] LABS: ALBUMIN 1.9 g/dL (3.5-5.0); BILIRUBIN,TOTAL 3.5 mg/dL (0.2-1.0); CREATININE 0.9 mg/dL (0.5-1.5); POTASSIUM 3.1 mmol/L (3.5-5.1); TOTAL PROTEIN, SERUM 5.3 g/dL (6.0-8.3)
[2018-06-21 07:10] VITALS: BP 144/90
[2018-06-21] MEDS ORDERED: PANTOPRAZOLE SODIUM 40 MG TABLET.DR PO SCH (09:00)
[2018-06-21] MEDS ORDERED: HYDROCODONE/ACETAMINOPHEN 5/325 MG TAB PO PRN (12:30)
[2018-06-21] MEDS ORDERED: LACTULOSE 20 GM/30 ML UDCUP ONE (13:12)
[2018-06-21] MEDS: RIFAXIMIN 550 MG TABLET PO SCH ×2 (13:16→22:21)
[2018-06-21] MEDS: METOPROLOL TARTRATE 25 MG TAB PO SCH ×2 (13:16→22:21)
[2018-06-21] MEDS: FUROSEMIDE 20 MG TABLET PO SCH ×2 (13:17→22:21)
[2018-06-21] MEDS: SPIRONOLACTONE 25 MG TAB PO SCH ×2 (13:17→22:20)
[2018-06-21 16:53] VITALS: BP 138/56
[2018-06-21] MEDS ORDERED: GLUCAGON 1MG KIT 1 MG ML IM PRN ×2 (17:45)
[2018-06-21] MEDS ORDERED: DEXTROSE 50%-WATER 50 ML DISP.SYRIN IV PRN ×2 (17:45)
[2018-06-21 19:00] VITALS: BP 134/66
[2018-06-21] MEDS: HYDROCODONE/ACETAMINOPHEN 5/325 MG TAB PO PRN (19:01)
[2018-06-21 19:17] LABS: HEMATOCRIT 18.6 % (42-54)
[2018-06-21] MEDS: INSULIN HUMULIN R 100 UNIT/ML 3ML SQ SCH (22:28)
[2018-06-21 23:00] VITALS: BP 125/58
[2018-06-22] MEDS: HYDROCODONE/ACETAMINOPHEN 5/325 MG TAB PO PRN ×3 (00:54→13:31)
[2018-06-22 03:33] VITALS: BP 122/61
[2018-06-22 05:42] LABS: HEMATOCRIT 21.4 % (42-54); MEAN CORPUSCULAR HEMOGLOBIN 33.9 pg (27.0-33.0); MEAN CORPUSCULAR VOLUME 96.8 fL (79-99); NUCLEATED RED BLOOD CELLS 0.1 % (0.0-0.19); PLATELET COUNT (AUTO) 35 K/uL (130-400); RED BLOOD CELL COUNT(AUTO) 2.21 MIL/uL (4.50-6.20); RED CELL DISTRIBUTION WIDTH 23.3 % (11.0-15.5); WHITE BLOOD COUNT (AUTO) 1.7 K/uL (4.8-10.8)
[2018-06-22 05:48] LABS: ALBUMIN 1.9 g/dL (3.5-5.0); BILIRUBIN,TOTAL 2.5 mg/dL (0.2-1.0); CREATININE 0.9 mg/dL (0.5-1.5); POTASSIUM 3.3 mmol/L (3.5-5.1); TOTAL PROTEIN, SERUM 5.4 g/dL (6.0-8.3)
[2018-06-22 05:56] LABS: BAND NEUTROPHILS % (MANUAL) 7 % (0-2); EOSINOPHILS % (MANUAL) 1 % (1-6); LYMPHOCYTES % (MANUAL) 21 % (22-44); MAN.DIFF COMMENT-IMPRESSION MANUAL DIFFERENTIAL; MONOCYTES % (MANUAL) 2 % (2-9); SEGMENTED NEUTROPHILS % 69 % (40-70)
[2018-06-22 05:57] LABS: PLATELET MORPHOLOGY COMMENT MARKED DECREASED
[2018-06-22] MEDS: INSULIN HUMULIN R 100 UNIT/ML 3ML SQ SCH ×3 (06:01→16:30)
[2018-06-22 08:23] VITALS: BP 115/55
[2018-06-22] MEDS ORDERED: THIAMINE HCL 100 MG TABLET PO SCH (09:00)
[2018-06-22] MEDS ORDERED: FOLIC ACID 1 MG TABLET PO SCH (09:00)
[2018-06-22] MEDS: RIFAXIMIN 550 MG TABLET PO SCH (10:30)
[2018-06-22] MEDS: SPIRONOLACTONE 25 MG TAB PO SCH (10:31)
[2018-06-22] MEDS: FUROSEMIDE 20 MG TABLET PO SCH (10:31)
[2018-06-22] MEDS: METOPROLOL TARTRATE 25 MG TAB PO SCH (10:32)
[2018-06-22] MEDS: LACTULOSE 20 GM/30 ML UDCUP PO SCH (10:33)
[2018-06-22 11:55] VITALS: BP 116/50
[2018-06-22 16:26] VITALS: BP 123/60
[2018-06-22] MEDS ORDERED: LACT PO (17:08)
== END 2018-06-22 19:55 | disposition home or self-care (01) ==
LOC: EDH 17:22 → EDHIP 17:23 → 3CH 21:47
PROVIDERS: ADMIT Internal Medicine; ATTEND Internal Medicine
DX: K72.00 Acute and subacute hepatic failure without coma (principal); K70.30 Alcoholic cirrhosis of liver without ascites; D61.818 Other pancytopenia; Z91.14 Patient's other noncompliance with medication regimen; Z79.899 Other long term (current) drug therapy
CPT/HCPCS: 36415 ×3; 36430; 70450; 80053 ×3; 80305; 81001; 82140 ×3; 82948 ×8; 85014; 85018; 85025 ×2; 85027; 85060; 85610; 85730; 86156; 86850; 86870; 86900; 86901; 86922; 96372 ×2; 99291; G0378 ×51; G0480; J1815; J7030; P9016

== ENCOUNTER 2018-07-18 18:27 | Observation (INO) | payer MEDICAID ==
[~2018-07-18] VITALS: Ht 172.7 cm; Wt 68.0 kg
[~2018-07-18 18:27] MED LIST changes: +LACT PO
[2018-07-18 20:06] LABS: BASOPHILS % (AUTO) 0.4 % (0.0-5.0); EOSINOPHILS % (AUTO) 3.9 % (0.0-8.0); LYMPHOCYTES % (AUTO) 31.5 % (21.0-51.0); MEAN CORPUSCULAR HEMOGLOBIN 35.8 pg (27.0-33.0); MEAN CORPUSCULAR VOLUME 99.5 fL (79-99); MONOCYTES % (AUTO) 10.4 % (3.0-13.0); NEUTROPHILS % (AUTO) 53.8 % (40.0-77.0); NUCLEATED RED BLOOD CELLS 0.4 % (0.0-0.19); PLATELET COUNT (AUTO) 29 K/uL (130-400); RED BLOOD CELL COUNT(AUTO) 1.83 MIL/uL (4.50-6.20); RED CELL DISTRIBUTION WIDTH 21.9 % (11.0-15.5)
[2018-07-18 20:12] LABS: HEMATOCRIT 18.3 % (42-54); WHITE BLOOD COUNT (AUTO) 1.1 K/uL (4.8-10.8)
[2018-07-18 20:21] LABS: CARBON DIOXIDE 23 mmol/L (21-32); CHLORIDE 110 mmol/L (101-111); CREATININE 0.8 mg/dL (0.5-1.5); GLOMERULAR FILTR. RATE CALC 110 mL/min (>60); GLUCOSE,RANDOM 348 mg/dL (70-105); POTASSIUM 3.8 mmol/L (3.5-5.1); SODIUM SERUM 140 mmol/L (136-145); UREA NITROGEN, BLOOD 11 mg/dL (7-18)
[2018-07-18 20:28] LABS: ALANINE AMINOTRANSFERASE 40 U/L (12-78); ALBUMIN 1.9 g/dL (3.5-5.0); AMMONIA 55 umol/L (11-32); ASPARTATE AMINOTRANSFERASE 78 U/L (10-37); LIPASE 65 U/L (114-286); TOTAL PROTEIN, SERUM 5.4 g/dL (6.0-8.3)
[2018-07-18 20:57] LABS: ALCOHOL, BLOOD < 3 mg/dL (0-10)
[2018-07-18 21:30] LABS: LYMPHOCYTES % (MANUAL) 21 % (22-44); MONOCYTES % (MANUAL) 9 % (2-9); SEGMENTED NEUTROPHILS % 70 % (40-70)
[2018-07-18 21:31] LABS: MAN.DIFF COMMENT-IMPRESSION MANUAL DIFFERENTIAL
[2018-07-18 21:32] LABS: PLATELET MORPHOLOGY COMMENT MARKED DECREASE
[2018-07-18] MEDS ORDERED: LACTATED RINGERS 1000ML 1,000 ML IV ONE (22:23)
[2018-07-18] MEDS ORDERED: LEVOFLOXACIN 500 MG/D5W 100 ML 100 ML ONE (22:23)
[2018-07-18 22:36] LABS: APPEARANCE,URINE Clear (CLEAR); BILIRUBIN,URINE Negative (NEGATIVE); COLOR,URINE Yellow (YELLOW); GLUCOSE, URINE (UA) >=1000 mg/dL (NEGATIVE); KETONES,URINE Negative (NEGATIVE); LEUKOCYTE ESTERASE ,URINE Negative (NEGATIVE); NITRATE,URINE Negative (NEGATIVE); OCCULT BLOOD,URINE Negative (NEGATIVE); PROTEIN,URINE Negative (NEGATIVE); UROBILINOGEN,URINE 0.2 mg/dL (0.2-1.0)
[2018-07-18 22:40] LABS: BACTERIA,URINE None Seen /HPF (None Seen); RBC,URINE None Seen /HPF (0-1); SQUAMOUS EPITHELIAL CELL,UR Rare /HPF (0-2); WBC,URINE None Seen /HPF (0-1)
[2018-07-18 22:44] LABS: AMPHET/METH SCREEN,URINE NEGATIVE (NEGATIVE); BARBITURATE SCREEN, URINE NEGATIVE (NEGATIVE); BENZODIAZEPINES SCREEN,URINE POSITIVE (NEGATIVE); CANNABINOID SCREEN,URINE NEGATIVE (NEGATIVE); COCAINE SCREEN,URINE POSITIVE (NEGATIVE); OPIATE SCREEN,URINE NEGATIVE (NEGATIVE); PHENCYCLIDINE SCREEN,URINE NEGATIVE (NEGATIVE)
[2018-07-19] VITALS: BP 97/43
[2018-07-19] MEDS ORDERED: SODIUM CHLORIDE 0.9% 500ML 500 ML IV ONE (00:10)
[2018-07-19] MEDS ORDERED: ACETAMINOPHEN 325 MG TAB PO PRN (01:45)
[2018-07-19] MEDS ORDERED: PHARMACY COMMUNICATION MISC SCH (01:45)
[2018-07-19] MEDS: LACTATED RINGERS 1000ML 1,000 ML IV SCH ×2 (01:45→15:08)
[2018-07-19] MEDS ORDERED: ONDANSETRON HCL MDV 20ML 2 MG/ML VIAL IVP PRN (01:45)
[2018-07-19] MEDS ORDERED: LEVOFLOXACIN 500 MG/D5W 100 ML 100 ML IV SCH (02:00)
[2018-07-19 04:00] VITALS: BP 120/49
[2018-07-19 06:47] LABS: HEMATOCRIT 20.7 % (42-54)
[2018-07-19 07:30] VITALS: BP 113/63
[2018-07-19 11:00] VITALS: BP 99/48
[2018-07-19] MEDS ORDERED: GLUCAGON 1MG KIT 1 MG ML IM PRN (12:00)
[2018-07-19] MEDS ORDERED: DEXTROSE 50%-WATER 50 ML DISP.SYRIN IV PRN (12:00)
[2018-07-19 13:12] LABS: HEMATOCRIT 20.8 % (42-54)
[2018-07-19 17:00] VITALS: BP 117/47
[2018-07-19] MEDS: INSULIN HUMULIN R 100 UNIT/ML 3ML SQ SCH ×2 (17:31→21:00)
[2018-07-19 18:17] LABS: HEMATOCRIT 23.7 % (42-54); MEAN CORPUSCULAR HEMOGLOBIN 34.8 pg (27.0-33.0); MEAN CORPUSCULAR HGB CONC 34.7 g/dL (32.0-36.0); MEAN CORPUSCULAR VOLUME 100.2 fL (79-99); NUCLEATED RED BLOOD CELLS 0.1 % (0.0-0.19); PLATELET COUNT (AUTO) 35 K/uL (130-400); RED BLOOD CELL COUNT(AUTO) 2.36 MIL/uL (4.50-6.20); RED CELL DISTRIBUTION WIDTH 21.7 % (11.0-15.5); WHITE BLOOD COUNT (AUTO) 1.4 K/uL (4.8-10.8)
[2018-07-19 18:58] LABS: BAND NEUTROPHILS % (MANUAL) 4 % (0-2); EOSINOPHILS % (MANUAL) 5 % (1-6); LYMPHOCYTES % (MANUAL) 21 % (22-44); MAN.DIFF COMMENT-IMPRESSION MANUAL DIFFERENTIAL; MONOCYTES % (MANUAL) 3 % (2-9); SEGMENTED NEUTROPHILS % 67 % (40-70)
[2018-07-19 19:01] LABS: PLATELET MORPHOLOGY COMMENT MARKED DECREASE
[2018-07-19 20:00] VITALS: BP 102/40
[2018-07-19] MEDS: METOPROLOL TARTRATE 25 MG TAB PO SCH (20:21)
[2018-07-19] MEDS: RIFAXIMIN 550 MG TABLET PO SCH (20:21)
[2018-07-19] MEDS: SPIRONOLACTONE 25 MG TAB PO SCH (20:21)
[2018-07-19] MEDS: FUROSEMIDE 20 MG TABLET PO SCH (20:23)
[2018-07-19] MEDS: LACTULOSE 20 GM/30 ML UDCUP PO SCH (20:23)
[2018-07-20] VITALS: BP 109/48
[2018-07-20 04:00] VITALS: BP 105/44
[2018-07-20] MEDS: LACTATED RINGERS 1000ML 1,000 ML IV SCH (04:25)
[2018-07-20 05:07] LABS: MEAN CORPUSCULAR HEMOGLOBIN 34.6 pg (27.0-33.0); MEAN CORPUSCULAR HGB CONC 35.2 g/dL (32.0-36.0); MEAN CORPUSCULAR VOLUME 98.5 fL (79-99); NUCLEATED RED BLOOD CELLS 0.1 % (0.0-0.19); PLATELET COUNT (AUTO) 33 K/uL (130-400); RED BLOOD CELL COUNT(AUTO) 2.04 MIL/uL (4.50-6.20); RED CELL DISTRIBUTION WIDTH 22.5 % (11.0-15.5); WHITE BLOOD COUNT (AUTO) 1.5 K/uL (4.8-10.8)
[2018-07-20 05:12] LABS: HEMATOCRIT 20.1 % (42-54)
[2018-07-20 05:14] LABS: CREATININE 0.8 mg/dL (0.5-1.5); POTASSIUM 3.8 mmol/L (3.5-5.1)
[2018-07-20 07:30] VITALS: BP 93/40
[2018-07-20] MEDS: INSULIN HUMULIN R 100 UNIT/ML 3ML SQ SCH ×2 (07:42→12:08)
[2018-07-20] MEDS: METOPROLOL TARTRATE 25 MG TAB PO SCH (09:00)
[2018-07-20] MEDS: SPIRONOLACTONE 25 MG TAB PO SCH (09:49)
[2018-07-20] MEDS: RIFAXIMIN 550 MG TABLET PO SCH (09:49)
[2018-07-20] MEDS: FUROSEMIDE 20 MG TABLET PO SCH (09:51)
[2018-07-20] MEDS: LACTULOSE 20 GM/30 ML UDCUP PO SCH (09:51)
[2018-07-20 11:00] VITALS: BP 96/53
[2018-07-21] MEDS ORDERED: TBO-FILGRASTIM 480 MCG/0.8 ML ML SQ SCH (09:00)
[2018-07-21] MEDS ORDERED: CYANOCOBALAMIN (VITAMIN B-12) 1,000 MCG TABLET PO SCH (09:00)
[2018-07-21] MEDS ORDERED: FOLIC ACID/VITAMIN B COMP W-C 1 MG CAPSULE PO SCH (09:00)
[2018-07-21] MEDS ORDERED: FOLIC ACID 1 MG TABLET PO SCH (09:00)
== END 2018-07-20 15:00 | disposition home or self-care (01) ==
LOC: EDH 18:27 → INTOOBSV 18:28 → EDHIP 18:28 → 3CH 23:01
PROVIDERS: ADMIT Internal Medicine; ATTEND Internal Medicine
DX: D61.818 Other pancytopenia (principal); R55 Syncope and collapse; R41.82 Altered mental status, unspecified; K72.90 Hepatic failure, unspecified without coma; K70.30 Alcoholic cirrhosis of liver without ascites; E43 Unspecified severe protein-calorie malnutrition; F14.10 Cocaine abuse, uncomplicated; Z79.899 Other long term (current) drug therapy
CPT/HCPCS: 36415 ×3; 36430; 70450; 72125; 80048; 80053; 80305; 81001; 82140 ×2; 82270; 82948 ×5; 83690; 85014 ×2; 85018 ×2; 85025 ×2; 85027; 86156; 86850; 86870; 86900; 86901; 86922; 87040 ×2; 96360; 96361 ×2; 96372 ×2; 99284; G0378 ×45; G0480; J1815 ×3; J1956; J7040; J7120 ×3; P9016

== ENCOUNTER 2018-07-20 14:37 | Emergency (ER) | payer MEDICAID ==
[2018-07-20 15:50] LABS: BASOPHILS % (AUTO) 0.7 % (0.0-5.0); EOSINOPHILS % (AUTO) 2.4 % (0.0-8.0); LYMPHOCYTES % (AUTO) 19.4 % (21.0-51.0); MEAN CORPUSCULAR HEMOGLOBIN 34.2 pg (27.0-33.0); MEAN CORPUSCULAR HGB CONC 34.9 g/dL (32.0-36.0); MEAN CORPUSCULAR VOLUME 98.1 fL (79-99); MONOCYTES % (AUTO) 8.7 % (3.0-13.0); NEUTROPHILS % (AUTO) 68.8 % (40.0-77.0); NUCLEATED RED BLOOD CELLS 0.1 % (0.0-0.19); PLATELET COUNT (AUTO) 44 K/uL (130-400); RED BLOOD CELL COUNT(AUTO) 2.54 MIL/uL (4.50-6.20); WHITE BLOOD COUNT (AUTO) 2.6 K/uL (4.8-10.8)
[2018-07-20 15:53] LABS: B-TYPE NATRIURETIC PEPTIDE 321 pg/mL (0-100); INR 1.34 (0.85-1.15); PARTIAL THROMBOPLASTIN TIME 40.6 SEC (26.3-35.5)
[2018-07-20 16:03] LABS: ACETAMINOPHEN 2 mcg/mL (10-29); ALCOHOL, BLOOD < 3 mg/dL (0-10); AMMONIA 51 umol/L (11-32); AMYLASE 35 U/L (25-115); CREATINE KINASE, TOTAL 24 U/L (21-232); LIPASE 82 U/L (114-286)
[2018-07-20 16:04] LABS: SALICYLATE < 2.8 mg/dL (2.8-20.0)
[2018-07-20 16:33] LABS: BAND NEUTROPHILS % (MANUAL) 5 % (0-2); EOSINOPHILS % (MANUAL) 6 % (1-6); LYMPHOCYTES % (MANUAL) 14 % (22-44); MAN.DIFF COMMENT-IMPRESSION MANUAL DIFFERENTIAL; MONOCYTES % (MANUAL) 10 % (2-9); REACTIVE LYMPHOCYTES 3 % (0-0); SEGMENTED NEUTROPHILS % 62 % (40-70)
[2018-07-20 16:36] LABS: PLATELET MORPHOLOGY COMMENT MARKED DECREASE
== END 2018-07-20 17:07 | disposition home or self-care (01) ==
LOC: EDH 14:37
DX: K74.69 Other cirrhosis of liver (principal); D61.818 Other pancytopenia; I25.10 Atherosclerotic heart disease of native coronary artery without angina pectoris; E11.9 Type 2 diabetes mellitus without complications; F31.9 Bipolar disorder, unspecified; F41.9 Anxiety disorder, unspecified; F20.9 Schizophrenia, unspecified; F43.10 Post-traumatic stress disorder, unspecified; Z90.49 Acquired absence of other specified parts of digestive tract; Z88.1 Allergy status to other antibiotic agents; Z88.6 Allergy status to analgesic agent; Z88.8 Allergy status to other drugs, medicaments and biological substances
CPT/HCPCS: 36415; 71045; 82140; 82150; 82550; 83690; 83880; 84484; 85025; 85610; 85730; 93005; 99284; G0480 ×2; G0481

== ENCOUNTER 2018-07-26 13:29 | Emergency (ER) | payer MEDICAID ==
[2018-07-26] MEDS ORDERED: SODIUM CHLORIDE 0.9% 1000ML 1,000 ML IV ONE (14:58)
[2018-07-26 15:17] LABS: BASOPHILS % (AUTO) 0.3 % (0.0-5.0); HEMATOCRIT 24.2 % (42-54); MEAN CORPUSCULAR HEMOGLOBIN 34.6 pg (27.0-33.0); MEAN CORPUSCULAR HGB CONC 34.3 g/dL (32.0-36.0); MEAN CORPUSCULAR VOLUME 100.8 fL (79-99); MONOCYTES % (AUTO) 9.7 % (3.0-13.0); PLATELET COUNT (AUTO) 32 K/uL (130-400); RED CELL DISTRIBUTION WIDTH 18.7 % (11.0-15.5); WHITE BLOOD COUNT (AUTO) 2.2 K/uL (4.8-10.8)
[2018-07-26 15:56] LABS: BAND NEUTROPHILS % (MANUAL) 5 % (0-2); LYMPHOCYTES % (MANUAL) 24 % (22-44); MONOCYTES % (MANUAL) 4 % (2-9); PLATELET MORPHOLOGY COMMENT MARKED DECREASE; SEGMENTED NEUTROPHILS % 67 % (40-70)
== END 2018-07-26 17:41 | disposition home or self-care (01) ==
LOC: EDH 13:29
DX: R07.89 Other chest pain (principal); E11.9 Type 2 diabetes mellitus without complications; I25.10 Atherosclerotic heart disease of native coronary artery without angina pectoris; F41.9 Anxiety disorder, unspecified; F31.9 Bipolar disorder, unspecified; F20.9 Schizophrenia, unspecified; F43.10 Post-traumatic stress disorder, unspecified; F19.10 Other psychoactive substance abuse, uncomplicated; Z88.6 Allergy status to analgesic agent; Z88.1 Allergy status to other antibiotic agents; Z88.8 Allergy status to other drugs, medicaments and biological substances; Z86.19 Personal history of other infectious and parasitic diseases; Z86.73 Personal history of transient ischemic attack (TIA), and cerebral infarction without residual deficits; Z72.0 Tobacco use
CPT/HCPCS: 36415; 84484; 85025; 93005; 99281; 99284; J7030

== ENCOUNTER 2018-07-26 17:50 | Emergency (ER) | payer MEDICAID | END 2018-07-26 19:14 | disposition home or self-care (01) | LOC: EDH 17:50 | DX: Z04.3 Encounter for examination and observation following other accident (principal); Z79.899 Other long term (current) drug therapy; I25.10 Atherosclerotic heart disease of native coronary artery without angina pectoris; E11.9 Type 2 diabetes mellitus without complications; F31.9 Bipolar disorder, unspecified; F43.10 Post-traumatic stress disorder, unspecified; F20.9 Schizophrenia, unspecified; Z86.19 Personal history of other infectious and parasitic diseases; W18.39XA Other fall on same level, initial encounter; Y93.01 Activity, walking, marching and hiking; Y92.89 Other specified places as the place of occurrence of the external cause; Y99.8 Other external cause status | CPT/HCPCS: 99281 ==

== ENCOUNTER 2018-08-04 13:06 | Emergency (ER) | payer MEDICAID ==
[2018-08-04] MEDS ORDERED: LACTULOSE 20 GM/30 ML UDCUP ONE (13:36)
== END 2018-08-04 14:27 | disposition home or self-care (01) ==
LOC: EDH 13:06
DX: K74.60 Unspecified cirrhosis of liver (principal); E11.9 Type 2 diabetes mellitus without complications; D64.9 Anemia, unspecified; F41.9 Anxiety disorder, unspecified; F31.9 Bipolar disorder, unspecified; F20.9 Schizophrenia, unspecified; I25.10 Atherosclerotic heart disease of native coronary artery without angina pectoris; Z86.73 Personal history of transient ischemic attack (TIA), and cerebral infarction without residual deficits; Z90.49 Acquired absence of other specified parts of digestive tract; Z79.4 Long term (current) use of insulin

== ENCOUNTER 2018-08-13 16:26 | Emergency (ER) | payer MEDICAID ==
[2018-08-13 16:59] LABS: BASOPHILS % (AUTO) 0.4 % (0.0-5.0); EOSINOPHILS % (AUTO) 1.6 % (0.0-8.0); HEMATOCRIT 22.6 % (42-54); LYMPHOCYTES % (AUTO) 22.1 % (21.0-51.0); MEAN CORPUSCULAR HEMOGLOBIN 36.1 pg (27.0-33.0); MEAN CORPUSCULAR HGB CONC 35.9 g/dL (32.0-36.0); MEAN CORPUSCULAR VOLUME 100.4 fL (79-99); MONOCYTES % (AUTO) 8.2 % (3.0-13.0); NEUTROPHILS % (AUTO) 67.7 % (40.0-77.0); NUCLEATED RED BLOOD CELLS 0.1 % (0.0-0.19); PLATELET COUNT (AUTO) 55 K/uL (130-400); RED BLOOD CELL COUNT(AUTO) 2.25 MIL/uL (4.50-6.20); RED CELL DISTRIBUTION WIDTH 19.6 % (11.0-15.5); WHITE BLOOD COUNT (AUTO) 1.9 K/uL (4.8-10.8)
[2018-08-13 17:15] LABS: ALBUMIN 2.1 g/dL (3.5-5.0); BILIRUBIN,TOTAL 2.8 mg/dL (0.2-1.0); POTASSIUM 4.3 mmol/L (3.5-5.1); TOTAL PROTEIN, SERUM 6.2 g/dL (6.0-8.3)
[2018-08-13 17:32] LABS: PLATELET MORPHOLOGY COMMENT MARKED DECREASE
[2018-08-13 17:49] LABS: INR 1.25 (0.85-1.15); PARTIAL THROMBOPLASTIN TIME 36.7 SEC (26.3-35.5); PROTHROMBIN TIME 13.1 SEC (9.6-11.6)
[2018-08-13] MEDS ORDERED: INSULIN HUMULIN R 100 UNIT/ML 3ML ONE ×2 (18:38→20:36)
== END 2018-08-13 23:40 | disposition home or self-care (01) ==
LOC: EDH 16:26
DX: E11.65 Type 2 diabetes mellitus with hyperglycemia (principal); R07.89 Other chest pain; K74.60 Unspecified cirrhosis of liver; F41.9 Anxiety disorder, unspecified; F31.9 Bipolar disorder, unspecified; F20.9 Schizophrenia, unspecified; I25.10 Atherosclerotic heart disease of native coronary artery without angina pectoris; F43.10 Post-traumatic stress disorder, unspecified; Z86.73 Personal history of transient ischemic attack (TIA), and cerebral infarction without residual deficits; Z91.14 Patient's other noncompliance with medication regimen; Z79.4 Long term (current) use of insulin; Z87.891 Personal history of nicotine dependence; Z88.1 Allergy status to other antibiotic agents; Z88.6 Allergy status to analgesic agent; Z88.4 Allergy status to anesthetic agent; Z88.8 Allergy status to other drugs, medicaments and biological substances
CPT/HCPCS: 36415; 71045; 80053; 82140; 82550; 82948 ×3; 83880; 84484; 85025; 85610; 85730; 93005; 96372 ×2; 99284; J1815 ×2

== ENCOUNTER 2018-08-14 15:03 | Emergency (ER) | payer MEDICAID ==
[2018-08-14] MEDS ORDERED: INSULIN HUMULIN R 100 UNIT/ML 3ML ONE (15:40)
[2018-08-15] MEDS ORDERED: LACTULOSE 20 GM/30 ML UDCUP ONE (02:15)
== END 2018-08-14 16:03 | disposition home or self-care (01) ==
LOC: EDH 15:03
DX: E11.65 Type 2 diabetes mellitus with hyperglycemia (principal); K74.60 Unspecified cirrhosis of liver; F31.9 Bipolar disorder, unspecified; F14.10 Cocaine abuse, uncomplicated; Z79.4 Long term (current) use of insulin; Z72.0 Tobacco use
CPT/HCPCS: 82948 ×2; 96372; 99283; J1815

== ENCOUNTER 2018-08-14 20:52 | Inpatient (IN) | payer MEDICAID | END 2018-08-19 15:00 | disposition home or self-care (01) | LOC: EDH 20:52 → EDHIP 20:53 → 3BH 08-15 12:36 | DX: K72.90 Hepatic failure, unspecified without coma (principal); E43 Unspecified severe protein-calorie malnutrition; Z91.19 Patient's noncompliance with other medical treatment and regimen; Z68.23 Body mass index [BMI] 23.0-23.9, adult ==